=== PATIENT | female | born 1955 | race Caucasian/White ===

== ENCOUNTER 2017-07-21 00:46 | Inpatient (IN) | payer BC ==
[~2017-07-21] VITALS: Ht 149.9 cm; Wt 77.1 kg
[2017-07-21] VITALS (18 sets, daily range): BP systolic 111–167; BP diastolic 70–89; PULSE 69–95; RESP 16–18; TEMP 97–98.5; O2SAT 96–100
[2017-07-21] MEDS ORDERED: GABA800T PO (01:04)
[2017-07-21] MEDS ORDERED: TRAZ100T6 PO (01:04)
[2017-07-21] MEDS ORDERED: REME15TA PO (01:04)
[2017-07-21] MEDS ORDERED: IBUP800T23 PO (01:04)
[2017-07-21] MEDS ORDERED: PROP10TA6 PO (01:04)
[2017-07-21] MEDS ORDERED: NITROGLYCERIN 0.4 MG SL 25 TABS/BTL SL ONE (01:30)
[2017-07-21] MEDS ORDERED: SODIUM CHLORIDE 0.9% FLUSH 10 ML FLUSH IVF PRN (01:30)
[2017-07-21] MEDS ORDERED: ASPIRIN 81 MG CHEW TAB PO ONE (01:30)
[2017-07-21 02:00] LABS: AUTOMATED NEUTROPHIL # 3.8 TH/MM3 (1.8-7.7); BASOPHIL # 0.1 TH/MM3 (0-0.2); BASOPHIL % 0.9 % (0.0-2.0); EOSINOPHIL # 0.3 TH/MM3 (0-0.4); EOSINOPHIL % 3.6 % (0.0-4.0); HEMATOCRIT 34.8 % (35.0-46.0); HEMO FLAGS DIFF FINAL; LYMPHOCYTE # 3.6 TH/MM3 (1.0-4.8); MEAN CELL VOLUME 88.9 FL (80.0-100.0); MEAN CORPUSCULAR HEMOGLOBIN 29.7 PG (27.0-34.0); MEAN CORPUSCULAR HGB CONC 33.4 % (32.0-36.0); MONO % 7.1 % (0.0-8.0); NEUT % 45.4 % (16.0-70.0); PLATELET COUNT 304 TH/MM3 (150-450); RED BLOOD COUNT 3.91 MIL/MM3 (4.00-5.30); RED CELL DISTRIBUTION WIDTH 13.4 % (11.6-17.2); WHITE BLOOD COUNT 8.4 TH/MM3 (4.0-11.0)
[2017-07-21 02:05] LABS: APTT (PATIENT) 21.2 SEC (24.3-30.1); INTERNATIONAL NORMALIZED RATIO 0.8 RATIO; PROTHROMBIN TIME - PATIENT 9.3 SEC (9.8-11.6)
--- NOTE | 2017-07-21 02:06 | RADRPT ---
EXAM DATE/TIME: 07/21/2017 01:39 [facility] COMPARISON: No previous studies available for comparison. INDICATIONS : Chest pain radiating into back MEDICAL HISTORY : Fibromyalgia SURGICAL HISTORY : section. Hysterectomy. Appendectomy. Breast Reduction ENCOUNTER: Initial ACUITY: 1 day PAIN SCORE: 7/10 LOCATION: Bilateral chest FINDINGS: A single view of the chest demonstrates the lungs to be symmetrically aerated without evidence of mas s, infiltrate or effusion. The cardiomediastinal contours are unremarkable. Osseous structures are intact. CONCLUSION: No evidence of acute cardiopulmonary disease. Tigre Beauchamp MD on July 21, 2017 at 2:04 Board Certified Radiologist. This report was verified electronically.
[2017-07-21] MEDS ORDERED: ACETAMINOPHEN 500 MG CPLT PO ONE (02:15)
[2017-07-21 02:16] LABS: ALT (GPT) 35 U/L (10-53); ANION GAP 7 MEQ/L (5-15); AST (GOT) 26 U/L (15-37); BICARBONATE 23.4 MEQ/L (21.0-32.0); BLOOD UREA NITROGEN 15 MG/DL (7-18); CHLORIDE 112 MEQ/L (98-107); GLOMERULAR FILTRATION RATE 60 ML/MIN (>89); MAGNESIUM 2.3 MG/DL (1.5-2.5); POTASSIUM 3.6 MEQ/L (3.5-5.1); SODIUM (NA) 142 MEQ/L (136-145)
[2017-07-21 02:20] LABS: ALKALINE PHOSPHATASE 103 U/L (45-117); TOTAL BILIRUBIN ADULT 0.2 MG/DL (0.2-1.0)
[2017-07-21] MEDS ORDERED: SODIUM CHLOR 0.45% 1000 ML INJ 1,000 ML IV SCH (03:42)
[2017-07-21] MEDS ORDERED: MAGNESIUM HYDROXIDE SUSP 30 ML CUP PO PRN (03:45)
[2017-07-21] MEDS ORDERED: ONDANSETRON HCL 4 MG/2 ML VIAL IVP PRN (03:45)
[2017-07-21] MEDS ORDERED: BISACODYL 10 MG SUPP RECTAL PRN (03:45)
[2017-07-21] MEDS ORDERED: SODIUM CHLORIDE 0.9% FLUSH 10 ML FLUSH IV FLUSH PRN (03:45)
[2017-07-21] MEDS ORDERED: LACTULOSE SYRUP 20 GM/30 ML CUP PO PRN (03:45)
[2017-07-21] MEDS ORDERED: SENNOSIDES 8.6 MG TAB PO PRN (03:45)
[2017-07-21] MEDS ORDERED: MORPHINE SULFATE 4 MG/ML INJ IV PUSH ONE (03:45)
[2017-07-21] MEDS ORDERED: NALOXONE HCL 0.4 MG/ML AMP IV PUSH PRN (03:45)
--- NOTE | 2017-07-21 03:53 | PD ---
HPI Chief Complaint: Chest Pain Time Seen by Provider: 01:24 Travel History International Travel<30 days: No Contact w/Intl Traveler<30days: No Traveled to known affect area: No History of Present Illness HPI Is a 62 year-old woman presents to the emergency department complaining of chest pain and sciatica pain. She reports that she over the past 4 days develop chest pain is worse when she walks up and down hills but is also been there since she went to bed last night. Skin constant since 4 PM. She also states she's been having worsening sciatic pain. She is a history of sciatica and fibromyalgia. She states she was seen for chest pain several years ago and had a stress test, 10+ years ago, that was normal. No history of heart disease. No other complaints. History Past Medical History Narrative Medical Sciatica Fibromyalgia Social History Alcohol Use: No Tobacco Use: No Allergies-Medications (Allergen,Severity, Reaction): Coded Allergies: No Known Allergies (Verified Allergy, Unknown, 07/21/17) Reported Meds & Prescriptions Reported Meds & Active Scripts Active Reported Ibuprofen 800 Mg Tab 800 Mg PO Q6HR PRN Propranolol (Propranolol HCl) Unknown Strength Tab Unknown Dose PO Q12HR Trazodone (Trazodone HCl) 100 Mg Tablet 100 Mg PO HS Remeron (Mirtazapine) 15 Mg Tab 15 Mg PO HS Gabapentin 800 Mg Tab 800 Mg PO QID Review of Systems Except as stated in HPI: all other systems reviewed are Neg Physical Exam Narrative GENERAL: 62 year-old woman, no acute distress. SKIN: Focused skin assessment warm/dry. HEAD: Atraumatic. Normocephalic. EYES: Pupils equal and round. No scleral icterus. No injection or drainage. ENT: No nasal bleeding or discharge. Mucous membranes pink and moist. NECK: Trachea midline. No JVD. CARDIOVASCULAR: Regular rate and rhythm. No murmur appreciated. RESPIRATORY: No accessory muscle use. Clear to auscultation. Breath sounds equal bilaterally. GASTROINTESTINAL: Abdomen soft, non-tender, nondistended. Hepatic and splenic margins not palpable. MUSCULOSKELETAL: No obvious deformities. No clubbing. No cyanosis. No edema. NEUROLOGICAL: Awake and alert. No obvious cranial nerve deficits. Motor grossly within normal limits. Normal speech. PSYCHIATRIC: Appropriate mood and affect; insight and judgment normal. Data Data Last Documented VS Vital Signs Date Time Temp Pulse Resp B/P (MAP) Pulse Ox O2 Delivery O2 Flow Rate FiO2 07/21/17 01:30 100 Room Air 07/21/17 01:30 80 16 07/21/17 00:57 97.9 Orders Orders Electrocardiogram (07/21/17 01:28) Complete Blood Count With Diff (07/21/17 01:28) Comprehensive Metabolic Panel (07/21/17 01:28) D-Dimer (07/21/17:28) Magnesium (Mg) (07/21/17:28) Prothrombin Time / Inr (Pt) (07/21/17:28) Act Partial Throm Time (Ptt) (07/21/17:28) Troponin I (07/21/17:28) Lipase (07/21/17:28) Chest, Single Ap (07/21/17:28) Ecg Monitoring (07/21/17:28) Bilateral Bp Monitoring (07/21/17:28) Iv Access Insert/Monitor (07/21/17:28) Oximetry (07/21/17:28) Oxygen Administration (07/21/17 01:28) Aspirin Chew (Aspirin Chew) (07/21/17 01:30) Sodium Chloride 0.9% Flush (Ns Flush) (07/21/17 01:30) Nitroglycerin Sl (Nitrostat Sl) (07/21/17 01:30) Acetaminophen (Tylenol) (07/21/17 02:15) Morphine Inj (Morphine Inj) (07/21/17 03:45) Troponin I (07/21/17 03:34) Electrocardiogram (07/21/17 ) Place In Observation (07/21/17 ) Vital Signs (Adult) Q4H (07/21/17 03:42) Activity Oob With Assistance (07/21/17 03:42) Physical Security Manager / Telemetry .CONTINUOUS (07/21/17 03:42) Intake + Output JAYSON.QSHIFT (07/21/17 03:42) Diet Npo (07/21/17 Breakfast) Sodium Chlor 0.45% 1000 Ml Inj (1/2 Ns 1 (07/21/17 03:42) Sodium Chloride 0.9% Flush (Ns Flush) (07/21/17 03:45) Sodium Chloride 0.9% Flush (Ns Flush) (07/21/17 09:00) Ondansetron Inj (Zofran Inj) (07/21/17 03:45) Comprehensive Metabolic Panel (07/22/17 06:00) Complete Blood Count With Diff (07/22/17 06:00) Troponin I (07/21/17 03:42) Troponin I (07/21/17 09:42) Electrocardiogram (07/21/17 03:42) Electrocardiogram (07/21/17 09:42) Scd Bilateral/Knee High JAYSON.BID (07/21/17 03:42) Naloxone Inj (Narcan Inj) (07/21/17 03:45) Magnesium Hydroxide Liq (Milk Of Magnesi (07/21/17 03:45) Sennosides (Senokot) (07/21/17 03:45) Bisacodyl Supp (Dulcolax Supp) (07/21/17 03:45) Lactulose Liq (Lactulose Liq) (07/21/17 03:45) Gabapentin (Neurontin) (07/21/17 09:00) Trazodone (Desyrel) (07/21/17 21:00) Labs Laboratory Tests Test 07/21/17 01:31 White Blood Count 8.4 TH/MM3 Red Blood Count 3.91 MIL/MM3 Hemoglobin 11.6 GM/DL Hematocrit 34.8 % Mean Corpuscular Volume 88.9 FL Mean Corpuscular Hemoglobin 29.7 PG Mean Corpuscular Hemoglobin Concent 33.4 % Red Cell Distribution Width 13.4 % Platelet Count 304 TH/MM3 Mean Platelet Volume 7.6 FL Neutrophils (%) (Auto) 45.4 % Lymphocytes (%) (Auto) 43.0 % Monocytes (%) (Auto) 7.1 % Eosinophils (%) (Auto) 3.6 % Basophils (%) (Auto) 0.9 % Neutrophils # (Auto) 3.8 TH/MM3 Lymphocytes # (Auto) 3.6 TH/MM3 Monocytes # (Auto) 0.6 TH/MM3 Eosinophils # (Auto) 0.3 TH/MM3 Basophils # (Auto) 0.1 TH/MM3 CBC Comment DIFF FINAL Differential Comment Prothrombin Time 9.3 SEC Prothromb Time International Ratio 0.8 RATIO Activated Partial Thromboplast Time 21.2 SEC D-Dimer Quantitative (PE/DVT) 0.35 MG/L FEU Blood Urea Nitrogen 15 MG/DL Creatinine 0.94 MG/DL Random Glucose 123 MG/DL Total Protein 6.9 GM/DL Albumin 3.4 GM/DL Calcium Level 8.2 MG/DL Magnesium Level 2.3 MG/DL Alkaline Phosphatase 103 U/L Aspartate Amino Transf (AST/SGOT) 26 U/L Alanine Aminotransferase (ALT/SGPT) 35 U/L Total Bilirubin 0.2 MG/DL Sodium Level 142 MEQ/L Potassium Level 3.6 MEQ/L Chloride Level 112 MEQ/L Carbon Dioxide Level 23.4 MEQ/L Anion Gap 7 MEQ/L Estimat Glomerular Filtration Rate 60 ML/MIN Troponin I 0.09 NG/ML Lipase 174 U/L MDM Medical Decision Making Medical Screen Exam Complete: Yes Emergency Medical Condition: Yes Interpretation(s) My review of EKG: Normal sinus rhythm at a rate of 82, normal axis, normal intervals, no definite evidence of acute ischemia. LABS: CBC is unremarkable. CMP is unremarkable. Troponin 0.09. Lipase 174 Coags unremarkable D-dimer less than 0.5 Chest x-ray: Negative Differential Diagnosis Chest pain, anxiety, sciatica, ACS, PE, other Narrative Course Medical decision-making 60-year-old presents with chest pain. She describes exertional chest pain but seems very fixated on pain medications and her sciatica. Overall my impression is unlikely to be cardiac. D-dimer is less than 0.5 suggesting against PE or dissection. She looks generally well. Troponin is equivocal at 0.09. We'll plan on admission for serial cardiac enzymes and repeat assessment. Diagnosis Primary Impression: Chest pain Admitting Information Admitting Physician Requests: Oseas Segundo MD Jul 21, 2017 03:53
--- NOTE | 2017-07-21 04:01 | HHI.HP ---
[facility] Service [facility] Primary Care Physician Admission Diagnosis Diagnoses: Chief Complaint: chest and back pain Travel History International Travel<30 Days: No Contact w/Intl Traveler <30 Da: No Traveled to Known Affected Are: No History of Present Illness Written by REBECCA Dixon acting as scribe for Dr. Bey] on 07/21/17 at 03:49. 62 y/o female with a history of fibromyalgia presented to the ED with complaints of back and chest pain. She states she woke up Saturday with severe intermittent back pain with no radiation, and yesterday she had associated constant chest pressure on exertion when climbing stairs with associated shortness of breath. She states the only medication change is she was recently placed on Xigduo for possible appetite suppressant. No history of sleep apnea, never been tested but she does snore. Review of Systems Except as stated in HPI: all other systems reviewed are Neg Past Family Social History Past Medical History Fibromyalgia Past Surgical History C section Hysterectomy Breast reduction Reported Medications Reported Meds & Active Scripts Active Reported Ibuprofen 800 Mg Tab 800 Mg PO Q6HR PRN Propranolol (Propranolol HCl) Unknown Strength Tab Unknown Dose PO Q12HR Trazodone (Trazodone HCl) 100 Mg Tablet 100 Mg PO HS Remeron (Mirtazapine) 15 Mg Tab 15 Mg PO HS Gabapentin 800 Mg Tab 800 Mg PO QID Allergies: Coded Allergies: No Known Allergies (Verified Allergy, Unknown, 07/21/17) Active Ordered Medications Current Medications Medications (Trade) Dose Ordered Sig/Juan Route Start Time Stop Time Status Last Admin (NS Flush) 2 ml UNSCH PRN IVF 07/21/17 01:30 Sodium Chloride 1,000 ml @ 75 mls/hr [id number] IV 07/21/17 03:42 (NS Flush) 2 ml UNSCH PRN IV FLUSH 07/21/17 03:45 (NS Flush) 2 ml BID IV FLUSH 07/21/17 09:00 (Zofran Inj) 4 mg Q6H PRN IVP 07/21/17 03:45 (Narcan Inj) 0.4 mg UNSCH PRN IV PUSH 07/21/17 03:45 (Milk Of Magnesia Liq) 30 ml Q12H PRN PO 07/21/17 03:45 (Senokot) 17.2 mg Q12H PRN PO 07/21/17 03:45 (Dulcolax Supp) 10 mg DAILY PRN RECTAL 07/21/17 03:45 (Lactulose Liq) 30 ml DAILY PRN PO 07/21/17 03:45 (Neurontin) 800 mg TID PO 07/21/17 09:00 (Desyrel) 100 mg HS PO 07/21/17 21:00 Family History Mom: CVA Dad: COPD Social History Patient denies any tobacco, alcohol or illicit drug use. Physical Exam Vital Signs Vital Signs Date Time Temp Pulse Resp B/P (MAP) Pulse Ox O2 Delivery O2 Flow Rate FiO2 07/21/17 01:30 100 Room Air 07/21/17 01:30 100 Room Air 07/21/17 01:30 80 16 167/82 (110) 07/21/17 00:57 97.9 84 16 158/89 (112) 100 Physical Exam GENERAL: This is a well-nourished, well-developed patient, in no apparent distress. SKIN: No rashes, ecchymoses or lesions. Cool and dry. HEAD: Atraumatic. Normocephalic. EYES: Pupils equal round and reactive. ENT: Nose without bleeding, purulent drainage or septal hematoma Airway patent. NECK: Trachea midline. No JVD or lymphadenopathy. Supple, nontender, no meningeal signs. CARDIOVASCULAR: Regular rate and rhythm without murmurs, gallops, or rubs. RESPIRATORY: Clear to auscultation. Breath sounds equal bilaterally. No wheezes , rales, or rhonchi. GASTROINTESTINAL: Abdomen soft, non-tender, nondistended. No hepato-splenomegaly , or palpable masses. No guarding. MUSCULOSKELETAL: Bilateral lower extremity edema. No calf tenderness. NEUROLOGICAL: Awake and alert. Motor and sensory grossly within normal limits.Normal speech. Laboratory Laboratory Tests Test 07/21/17 01:31 White Blood Count 8.4 Red Blood Count 3.91 Hemoglobin 11.6 Hematocrit 34.8 Mean Corpuscular Volume 88.9 Mean Corpuscular Hemoglobin 29.7 Mean Corpuscular Hemoglobin Concent 33.4 Red Cell Distribution Width 13.4 Platelet Count 304 Mean Platelet Volume 7.6 Neutrophils (%) (Auto) 45.4 Lymphocytes (%) (Auto) 43.0 Monocytes (%) (Auto) 7.1 Eosinophils (%) (Auto) 3.6 Basophils (%) (Auto) 0.9 Neutrophils # (Auto) 3.8 Lymphocytes # (Auto) 3.6 Monocytes # (Auto) 0.6 Eosinophils # (Auto) 0.3 Basophils # (Auto) 0.1 CBC Comment DIFF FINAL Differential Comment Prothrombin Time 9.3 Prothromb Time International Ratio 0.8 Activated Partial Thromboplast Time 21.2 D-Dimer Quantitative (PE/DVT) 0.35 Blood Urea Nitrogen 15 Creatinine 0.94 Random Glucose 123 Total Protein 6.9 Albumin 3.4 Calcium Level 8.2 Magnesium Level 2.3 Alkaline Phosphatase 103 Aspartate Amino Transf (AST/SGOT) 26 Alanine Aminotransferase (ALT/SGPT) 35 Total Bilirubin 0.2 Sodium Level 142 Potassium Level 3.6 Chloride Level 112 Carbon Dioxide Level 23.4 Anion Gap 7 Estimat Glomerular Filtration Rate 60 Troponin I 0.09 Lipase 174 Result Diagram: 07/21/1713007/21/17130 Caprini VTE Risk Assessment Caprini VTE Risk Assessment: Mod/High Risk (score >= 2) Caprini Risk Assessment Model Point Value = 1 Point Value = 2 Point Value = 3 Point Value = 5 Age 41-60 Minor surgery BMI > 25 kg/m2 Swollen legs Varicose veins or History of unexplained or recurrent spontaneous Oral contraceptives or hormone replacement Sepsis (< 1 month) Serious lung disease, including pneumonia (< 1 month) Abnormal pulmonary function Acute myocardial infarction Congestive heart failure (< 1 month) History of inflammatory bowel disease Medical patient at bed rest Age 61-74 Arthroscopic surgery Major open surgery (> 45 min) Laparoscopic surgery (> 45 min) Malignancy Confined to bed (> 72 hours) Immobilizing plaster cast Central venous access Age >= 75 History of VTE Family history of VTE Factor V Leiden Prothrombin [id number] Lupus anticoagulant Anticardiolipin antibodies Elevated serum homocysteine Heparin-induced thrombocytopenia Other congenital or acquired thrombophilia Stroke (< 1 month) Elective arthroplasty Hip, pelvis, or leg fracture Acute spinal cord injury (< 1 month) Prophylaxis Regimen Total Risk Factor Score Risk Level Prophylaxis Regimen 0-1 Low Early ambulation 2 Moderate Order ONE of the following: *Sequential Compression Device (SCD) *Heparin 5000 units SQ BID 3-4 Higher Order ONE of the following medications: *Heparin 5000 units SQ TID *Enoxaparin/Lovenox 40 mg SQ daily (WT < 150 kg, CrCl > 30 mL/min) *Enoxaparin/Lovenox 30 mg SQ daily (WT < 150 kg, CrCl > 10-29 mL/min) *Enoxaparin/Lovenox 30 mg SQ BID (WT < 150 kg, CrCl > 30 mL/min) AND/OR *Sequential Compression Device (SCD) 5 or more Highest Order ONE of the following medications: *Heparin 5000 units SQ TID (Preferred with Epidurals) *Enoxaparin/Lovenox 40 mg SQ daily (WT < 150 kg, CrCl > 30 mL/min) *Enoxaparin/Lovenox 30 mg SQ daily (WT < 150 kg, CrCl > 10-29 mL/min) *Enoxaparin/Lovenox 30 mg SQ BID (WT < 150 kg, CrCl > 30 mL/min) AND *Sequential Compression Device (SCD) Assessment and Plan Problem List: (1) Chest pain ICD Code: R07.9 - Chest pain, unspecified Status: Acute Assessment and Plan 62 y/o female with a history of fibromyalgia presented to the ED with complaints of back and chest pain. Chest pain, atypical, rule out ACS troponin .07 -Serial troponin and EKGs Lower extremity edema, r/o CHF -BNP ordered -2d echo Fibromyalgia, chronic -Resume home medications -Patient will need a sleep study outpatient to rule out sleep apnea DVT prophylaxis: SCDs Discussed Condition With Patient, ED physician This note was transcribed by scribe [Lizzie Hagan]. I, Dr. Toy Ross personally performed the history, physical exam, and medical decision making; and confirmed the accuracy of the information in the transcribed note. Authenticated by Dr. Toy Ross on 07/21/17 at 04:20. Lizzie Hagan Jul 21, 2017 04:01 Toy Ross MD Jul 21, 2017 04:22
[2017-07-21] MEDS ORDERED: HEPARIN-D5W 25,000 U/250 ML 250 ML IV PRN (05:30)
[2017-07-21] MEDS ORDERED: HEPARIN SODIUM - IV 10,000 UNITS/10 ML VIAL IV PUSH ONE (05:30)
[2017-07-21] MEDS: NITROGLYCERIN 2% OINT 1 GM PACKET TOPICAL SCH ×3 (08:00→21:14)
[2017-07-21] MEDS: GABAPENTIN 400 MG CAP PO SCH ×3 (08:39→17:52)
[2017-07-21] MEDS: SODIUM CHLORIDE 0.9% FLUSH 10 ML FLUSH IV FLUSH SCH ×2 (08:40→21:09)
[2017-07-21] MEDS: MORPHINE SULFATE 2 MG/ML INJ IV PUSH PRN ×4 (08:41→23:35)
[2017-07-21 08:56] LABS: APTT (PATIENT) 35.5 SEC (24.3-30.1)
[2017-07-21 09:18] LABS: HDL CHOLESTEROL 51.7 MG/DL (40.0-60.0); LDL CHOLESTEROL 129 MG/DL (0-99)
[2017-07-21] MEDS ORDERED: GABAPENTIN 400 MG CAP PO SCH (10:00)
--- NOTE | 2017-07-21 10:02 | HHI.PR ---
Subjective Remarks Follow-up for pain. The patient is very anxious and not a good historian. Her chief complaint is pain in her chest, back, and right leg. She does have chronic pain from fibromyalgia and sciatica for which she takes gabapentin 800 mg 3-4 times daily. She states that she woke up Saturday with back pain that is still present and worse with movement. She states early this week she was walking across the street to her neighbors house and developed shortness of breath. She states she's been having constant chest pain for 4 days, but does not elaborate this well. She states the pain increases when she goes up the stairs to her apartment. She states the pain never decreases even with rest. The pain in her chest she describes as heavy like an elephant is sitting on it. The pain is worse with movement and whenever her chest is touched. She states the pain is worse whenever she breathes out. She denies any relieving factors, but she is asking for more IV morphine. She's been having some pain in her right leg, denies any recent travel. Has been using topical Xylocaine patches on her right leg. She states she is healthy and in good shape and denies any heart disease. Objective Vitals Vital Signs Date Time Temp Pulse Resp B/P (MAP) Pulse Ox O2 Delivery O2 Flow Rate FiO2 07/21/17 09:28 19 07/21/17 07:38 98.5 77 17 111/70 (84) 98 07/21/17 07:32 77 07/21/17 05:14 97.9 78 17 120/71 (87) 96 07/21/17 04:26 07/21/17 04:25 69 16 153/70 (97) 97 07/21/17 01:30 100 Room Air 07/21/17 01:30 100 Room Air 07/21/17 01:30 80 16 167/82 (110) 07/21/17 00:57 97.9 84 16 158/89 (112) 100 Result Diagram: 07/21/1713007/21/17130 Imaging Last Impressions Chest X-Ray 07/21/17127 Signed Impressions: Service Date/Time: Friday, July 21, 2017 01:39 - CONCLUSION: No evidence of acute cardiopulmonary disease. Tigre Beauchamp MD Objective Remarks GENERAL: Well-developed well-nourished. In no acute distress. SKIN: Warm and dry. No lesions noted. HEENT: Normocephalic. Pupils equal and round. Mucous membranes pink and moist. CARDIOVASCULAR: Regular rate and rhythm. No murmur appreciated. Anterior chest wall pain reproducible with palpation. RESPIRATORY: No accessory muscle use. Clear to auscultation. Breath sounds equal bilaterally. GASTROINTESTINAL: Abdomen soft, non-tender, nondistended. Bowel sounds x4. MUSCULOSKELETAL: No obvious deformities. No clubbing or cyanosis. No edema. No calf swelling, tenderness bilaterally. Negative Homans sign bilaterally. NEUROLOGICAL: Awake and alert. No focal neurological deficits. Moves upper and lower extremities spontaneously. Normal speech. PSYCHIATRIC: Extremely anxious mood and affect; insight and judgment normal. A/P Problem List: (1) Chest pain ICD Code: R07.9 - Chest pain, unspecified Status: Acute Assessment and Plan 62 y/o female with a history of fibromyalgia presented to the ED with complaints of back and chest pain. Atypical chest pain/NSTEMI: Patient's symptoms are extremely atypical, however troponins are 0.09, 0.17. Reviewed: EKG with NSR, no ischemic changes. D-dimer within normal limits. Chest x-ray clear. BNP 44. -Continue trending serial troponins and EKGs -Heparin drip started -Cardiology consulted, appreciate input -Start Nitropaste. Morphine as needed for now. -Echocardiogram ordered. -Hemoglobin A1c pending Hyperlipidemia: Lipid profile checked with high triglycerides and LDL 129. LFTs within normal limits. -Start statin -Check CPK Right lower extremity pain: No swelling, tenderness, and Homans signs negative. D-dimer is within normal limits. -Probably secondary to chronic sciatic pain, continue home therapies Fibromyalgia: chronic -Resume home gabapentin -Recommend sleep study outpatient to rule out sleep apnea Anxiety/depression/insomnia: Chronic. -Continue home trazodone and Remeron DVT prophylaxis: SCDs Discharge Planning Follow-up cardiology recommendations. Enrique Lu Jul 21, 2017 10:02
[2017-07-21 10:03] LABS: HEMOGLOBIN A1a 1.3 %; HEMOGLOBIN LA1C 2.3 %
[2017-07-21 11:24] LABS: APTT (PATIENT) 29.5 SEC (24.3-30.1)
[2017-07-21] MEDS ORDERED: HEPARIN SODIUM - IV 10,000 UNITS/10 ML VIAL IV PUSH PRN ×2 (11:30)
--- NOTE | 2017-07-21 12:47 | MB ---
cc: KEO WHITE HANSCY M.D. DATE OF CONSULTATION: 07/21/2017 REASON FOR CONSULTATION Chest and back pain. HISTORY OF PRESENT ILLNESS Mrs. Velazquez is a 62-year-old female with history of fibromyalgia, back pain, recently seen by her primary care physician Dr. Keo White due to right leg pain. The doctor thought possibly this is fibromyalgia versus sciatica. She was sent home, she is on ibuprofen and Neurontin. For the past couple of days refers back and chest pain. She refers some chest pressure. She decided to come to the emergency room. Troponin was 0.17. I was consulted for further evaluation and management. The chart was reviewed. The patient was evaluated. ALLERGIES None. SOCIAL HISTORY Negative for smoking and drinking. FAMILY HISTORY Noncontributory to her current medical condition. MEDICATIONS 1. She is on ibuprofen 800 mg q.6 hours. 2. Propranolol. 3. Trazodone 100 mg at bedtime. 4. Remeron 15 mg at bedtime. 5. Neurontin 800 mg four times a day. REVIEW OF SYSTEMS Currently the patient refers no chest pain, no chest discomfort. Some back pain. No vomiting. No fever. PHYSICAL EXAMINATION GENERAL: Alert, fully oriented. VITAL SIGNS: Her blood pressure is 111/70, pulse 77, respiratory rate 17. LUNGS: Ventilated. CARDIOVASCULAR: S1-S2, regular. No gallop or murmur. ABDOMEN: Soft. No mass. No bruit. EXTREMITIES: No edema. ELECTROCARDIOGRAM Sinus rhythm. No active ST and T-wave changes. LABORATORY DATA INR 0.8, D-dimer 0.35, potassium 3.6, creatinine 0.94, troponin currently 0.17. Triglycerides 288, total cholesterol 238, LDL 129, HDL 51.7. Hemoglobin is 11.6, white blood cell 8.4. ASSESSMENT AND RECOMMENDATIONS Mrs. Velazquez's pain is atypical. But she refers she feels some heaviness in her chest. She has no serious risk factor. The HDL is high despite the total cholesterol over 200. Apparently, she has a history of fibromyalgia and back pain and was on painkiller in the past. Because of her age and the nature of the chest pain and also the increase of troponin, I am going to order a nuclear stress study. Based on the results further decision about her management will be taken. I will follow her during hospitalization. MD MARIAJOSE Diaz /10:49 AM /12:33 PM
[2017-07-21] MEDS ORDERED: REGADENOSON INJ 0.4 MG/5 ML SYR ONE (13:47)
--- NOTE | 2017-07-21 15:50 | RADRPT ---
EXAM DATE/TIME: 07/21/2017 13:15 [facility] COMPARISON: CHEST SINGLE AP, July 21, 2017, 1:39. INDICATIONS : Chest pain radiating to the back and right leg. Angina. DOSE: 27.2 mCi Tc99m Myoview at stress. 8 mCi Tc99m Myoview at rest. 0.4 mg Lexiscan STRESS SYMPTOMS: Chest heaviness, back pain and dyspnea. EJECTION FRACTION: > 70% MEDICAL HISTORY : Fibromyalgia. SURGICAL HISTORY : Hysterectomy. Appendectomy. ENCOUNTER: Initial ACUITY: 3 days PAIN SCALE: 5/10 LOCATION: chest TECHNIQUE: The patient underwent pharmacologic stress with infusion of prescribed dose. Continuous ECG tracing was monitored during stress. Gated SPECT imaging was performed after stress and conventional SPECT i maging was performed at rest. The examination was performed on a SPECT/CT scanner, both attenuation and non-corrected datasets were reviewed. FINDINGS: DISTRIBUTION: The maximum perfused segment at stress is in the anterior wall. PERFUSION STUDY: There is a large perfusion defect involving the inferior septal and inferior borges on a stress images with redistribution in the inferior septal region on the rest images. There is a summed stress score of 17. GATED STUDY: There is intact wall motion and thickening without hypokinetic or dyskinetic segments. CONCLUSION: 1. Large perfusion defect involving the inferior septal and inferior borges with partial redistributio n in the inferior septal region. This is characteristic of ischemia. 2. Normal wall motion and calculated ejection fraction. RISK CATEGORY: Intermediate (1-3% Annual Mortality Rate) Ag Martell MD on July 21, 2017 at 15:42 Board Certified Radiologist. This report was verified electronically.
[2017-07-21] MEDS ORDERED: ACETAMINOPHEN 325 MG TAB PO PRN (16:00)
[2017-07-21] MEDS: LORazepam 0.5 MG TAB PO PRN (16:00)
[2017-07-21 17:56] LABS: APTT (PATIENT) 66.7 SEC (24.3-30.1)
--- NOTE | 2017-07-21 20:41 | EKG ---
Date Performed: 07/21/2017 Time Performed: 03:50:57 PTAGE: 62 years EKG: Sinus rhythm NORMAL ECG PREVIOUS TRACING : 07/21/2017 01.09 DOCTOR: Dede Simon Interpretating Date/Time 07/21/2017 20:38:43
--- NOTE | 2017-07-21 20:42 | EKG ---
Date Performed: 07/21/2017 Time Performed: 01:09:23 PTAGE: 62 years EKG: Sinus rhythm MINIMAL VOLTAGE CRITERIA FOR LVH, CONSIDER NORMAL VARIANT BORDERLINE ECG NO PREVIOUS TRACING DOCTOR: Dede Simon Interpretating Date/Time 07/21/2017 20:39:18
[2017-07-21] MEDS: MIRTAZAPINE 15 MG TAB PO SCH (21:09)
[2017-07-21] MEDS: ATORVASTATIN 10 MG TAB PO SCH (21:10)
[2017-07-21] MEDS: traZODone HCL 100 MG TAB PO SCH (21:10)
[2017-07-22] VITALS (25 sets, daily range): BP systolic 107–150; BP diastolic 55–83; PULSE 68–109; RESP 16–18; TEMP 97.8–98.9; O2SAT 96–100
[2017-07-22 00:06] LABS: APTT (PATIENT) 43.9 SEC (24.3-30.1)
[2017-07-22] MEDS: MORPHINE SULFATE 2 MG/ML INJ IV PUSH PRN ×3 (06:33→18:20)
[2017-07-22] MEDS: NITROGLYCERIN 2% OINT 1 GM PACKET TOPICAL SCH ×3 (06:36→20:40)
[2017-07-22 06:40] LABS: AUTOMATED NEUTROPHIL # 4.6 TH/MM3 (1.8-7.7); BASOPHIL # 0.1 TH/MM3 (0-0.2); EOSINOPHIL # 0.4 TH/MM3 (0-0.4); EOSINOPHIL % 3.9 % (0.0-4.0); HEMATOCRIT 36.2 % (35.0-46.0); HEMO FLAGS DIFF FINAL; LYMPH % 39.9 % (9.0-44.0); LYMPHOCYTE # 3.7 TH/MM3 (1.0-4.8); MEAN CELL VOLUME 88.3 FL (80.0-100.0); MEAN CORPUSCULAR HEMOGLOBIN 30.5 PG (27.0-34.0); MEAN CORPUSCULAR HGB CONC 34.5 % (32.0-36.0); MONO % 5.1 % (0.0-8.0); NEUT % 50.1 % (16.0-70.0); PLATELET COUNT 283 TH/MM3 (150-450); RED CELL DISTRIBUTION WIDTH 13.3 % (11.6-17.2); WHITE BLOOD COUNT 9.2 TH/MM3 (4.0-11.0)
[2017-07-22 06:49] LABS: APTT (PATIENT) 41.5 SEC (24.3-30.1)
[2017-07-22 06:57] LABS: ANION GAP 7 MEQ/L (5-15); AST (GOT) 33 U/L (15-37); BICARBONATE 24.1 MEQ/L (21.0-32.0); BLOOD UREA NITROGEN 14 MG/DL (7-18); CHLORIDE 108 MEQ/L (98-107); GLOMERULAR FILTRATION RATE 63 ML/MIN (>89); POTASSIUM 3.9 MEQ/L (3.5-5.1); SODIUM (NA) 139 MEQ/L (136-145)
[2017-07-22 07:00] LABS: ALKALINE PHOSPHATASE 86 U/L (45-117); ALT (GPT) 41 U/L (10-53); TOTAL BILIRUBIN ADULT 0.3 MG/DL (0.2-1.0)
[2017-07-22] MEDS: SODIUM CHLORIDE 0.9% FLUSH 10 ML FLUSH IV FLUSH SCH ×2 (08:15→20:40)
[2017-07-22] MEDS: GABAPENTIN 400 MG CAP PO SCH ×3 (08:15→18:19)
--- NOTE | 2017-07-22 08:56 | HHI.PR ---
Subjective Remarks Patient reports she is still having some chest pain radiating to her back. Nuclear stress test is positive. Plan for heart catheterization this morning. Objective Vitals Vital Signs Date Time Temp Pulse Resp B/P (MAP) Pulse Ox O2 Delivery O2 Flow Rate FiO2 07/22/17 07:01 80 07/22/17 05:00 68 07/22/17 04:00 98 Room Air 07/22/17 03:49 97.8 79 16 115/72 (86) 98 07/22/17 03:49 94 07/22/17 03:00 76 07/22/17 02:00 84 07/22/17 01:00 80 07/22/17 00:00 97.8 76 16 117/73 (88) 96 07/22/17 00:00 78 07/22/17 00:00 96 Room Air 07/21/17 23:00 85 07/21/17 22:00 88 07/21/17 21:09 89 07/21/17 21:09 Room Air 07/21/17 20:00 97.0 95 18 139/75 (96) 96 07/21/17 20:00 95 07/21/17 18:48 95 07/21/17 18:00 92 07/21/17 17:00 81 07/21/17 16:00 79 07/21/17 15:45 97.1 82 18 130/78 (95) 100 07/21/17 15:00 85 07/21/17 12:00 97.0 85 18 148/87 (107) 97 07/21/17 10:31 76 07/21/17 09:28 19 I/O 07/21/17 07/21/17 07/21/17 07/22/17 07/22/17 07/22/17 07:00 15:00 23:00 07:00 15:00 23:00 Intake Total 285 ml 294 ml Output Total 900 ml Balance -615 ml 294 ml Intake Oral 240 ml 240 ml IV Total 45 ml 54 ml Output Urine Total 900 ml # Voids 3 1 Result Diagram: 07/22/1760507/22/17605 Objective Remarks GENERAL: This is a well-nourished, well-developed patient, in no apparent distress. CARDIOVASCULAR: Normal rate and regular rhythm without murmurs, gallops, or rubs. RESPIRATORY: Good respiratory efforts. Breath sounds equal and clear to auscultation bilaterally. GASTROINTESTINAL: Abdomen soft, non-tender, non-distended. Normal active bowel sounds MUSCULOSKELETAL: Extremities without cyanosis, or edema. NEURO: Alert & Oriented x4 to person, place, time, situation. Moves all ext x4 PSYCH: Appropriate mood and affect. A/P Problem List: (1) Chest pain ICD Code: R07.9 - Chest pain, unspecified Status: Acute (2) NSTEMI (non-ST elevated myocardial infarction) ICD Code: I21.4 - Non-ST elevation (NSTEMI) myocardial infarction Assessment and Plan 62 y/o female with a history of fibromyalgia presented to the ED with complaints of back and chest pain. Atypical chest pain/NSTEMI: Patient's symptoms are atypical, however troponins are 0.09, 0.17. Positive nuclear stress test -On Heparin drip. Plan for heart catheterization today -Cardiology following -Nitropaste. Morphine as needed for now. -Echocardiogram ordered. -Hemoglobin A1c 6.1 Hyperlipidemia: Lipid profile checked with high triglycerides and LDL 129. LFTs within normal limits. -On statin Right lower extremity pain: No swelling, tenderness, and Homans signs negative. D-dimer is within normal limits. -Probably secondary to chronic sciatic pain, continue home therapies Fibromyalgia: chronic -Continue home gabapentin -Recommend sleep study outpatient to rule out sleep apnea Anxiety/depression/insomnia: Chronic. -Continue home trazodone and Remeron DVT prophylaxis: On Heparin Harsh Guevara MD Jul 22, 2017 08:56
[2017-07-22] MEDS ORDERED: MIDAZOLAM HCL 2 MG/2 ML VIAL ONE (10:30)
[2017-07-22] MEDS ORDERED: HEPARIN-NS/PF INJ 500 ML ONE (10:31)
[2017-07-22] MEDS ORDERED: NITROGLYCERIN INJ 5 ML ONE (10:31)
[2017-07-22] MEDS ORDERED: HEPARIN SODIUM - IV 10,000 UNITS/10 ML VIAL ONE (10:31)
[2017-07-22] MEDS ORDERED: VERAPAMIL HCL 5 MG/2 ML VIAL ONE (10:31)
[2017-07-22] MEDS ORDERED: NITROGLYCERIN 400 MCG/SPRAY 4.9 GM BOTTLE SL ONE (11:12)
[2017-07-22] MEDS ORDERED: PRASUGREL 10 MG TAB ONE (11:54)
[2017-07-22] MEDS ORDERED: SODIUM CHLOR 0.9% 1000 ML INJ 1,000 ML IV SCH (12:05)
[2017-07-22] MEDS ORDERED: ACETAMINOPHEN 325 MG TAB PO PRN (12:15)
[2017-07-22] MEDS ORDERED: MISC INFORMATION XX ONE (12:15)
--- NOTE | 2017-07-22 12:41 | MB ---
cc: CASEY NAZARIO DATE OF CONSULTATION: 07/22/2017 DATE OF : 1955 REASON FOR CONSULTATION Rai-BV-lxcvwwrgu NV, positive stress test. HISTORY OF PRESENT ILLNESS 62-year-old female with past medical history significant for fibromyalgia and hypertension that presented to the hospital with complaint of atypical chest pain. She was found to have elevated troponin. She was seen by cardiology, Dr. Simon, who order a nuclear stress test which was positive for reversible ischemia, thus interventional cardiology has been consulted for further management for possible left heart cath and intervention. Currently the patient complains of chest pain into the left arm. Denies nausea, vomiting, diarrhea, fevers or chills. REVIEW OF SYSTEMS Negative except for what is mentioned in the HPI. PAST MEDICAL HISTORY 1. Fibromyalgia. 2. Hypertension. 3. Hyperlipidemia. SOCIAL HISTORY No alcohol. No smoking. No illicit drug use. FAMILY HISTORY Noncontributory. MEDICATIONS Home medications were reviewed. ALLERGIES No known drug allergies. PHYSICAL EXAMINATION VITAL SIGNS: Temperature 97, respiratory rate 20, blood pressure 122/72. O2 sats 100% on room air. GENERAL: Awake, alert, oriented x3, in no acute distress. NECK: No JVD or carotid bruits. HEART: Regular rate and rhythm. No murmurs, rubs or gallops. LUNGS: Clear to auscultation bilaterally. ABDOMEN: Soft, nontender, nondistended. Positive bowel sounds. EXTREMITIES: No cyanosis or edema. Pulses throughout. DATA MPI- Reversible ischemia in the inferior wall. Troponin is minimally elevated. Hemoglobin and creatinine are stable. INR 0.8, D-dimer 0.35, potassium 3.6, creatinine 0.94, troponin currently 0.17. Triglycerides 288, total cholesterol 238, LDL 129, HDL 51.7. Hemoglobin is 11.6 , white blood cell 8.4. ASSESSMENT AND PLAN 62-year-old female who presented with a zes-IZ-ltzazwidd NV, atypical chest pain and positive stress test. She remains afebrile and hemodynamically stable. She complains of some chest discomfort which seems to be atypical. Given the patient's results of stress test, troponin and ongoing complaint of chest pain, I think it is reasonable to proceed with left heart cath with possible intervention. The risks and benefits of left heart cath/PCI including but not limited to neurovascular trauma, bleeding, infection, acute kidney injury, stroke, emergent bypass surgery and have been explained to the patient. The patient understands the risks and she is willing to proceed. Keep n.p.o. for a left heart cath today. MD EUGENIO Braswell/MATILDE /12:03 PM /12:32 PM TWYLA
[2017-07-22] MEDS ORDERED: PILL SPLITTER OTHER PRN (12:45)
--- NOTE | 2017-07-22 12:46 | MA ---
cc: MICHAELCASEY Ingram DATE OF 1955 DATE OF CONSULTATION July 22, 2017. PREPROCEDURE DIAGNOSES 1. Twk-WJ-udwbxhjos PR. 2. Positive stress test. 3. Chest pain. 4. Fibromyalgia POSTPROCEDURE DIAGNOSIS 1. Bnm-GT-dmfdbbped PR 2. Successful PCI to right coronary artery. 3. Chest pain 4. Positive stress test 5. Fibromyalgia PROCEDURE PERFORMED 1. Left heart catheterization. 2. Selective right and left coronary angiography. 3. Left ventriculogram. 4. Successful PCI/JERED to mid-right coronary artery. INDICATION [id number]-omiuhutnd PR. APPROACH Right transradial. PROCEDURE DESCRIPTION Consent signed. The patient was brought into the cardiac slab miller operator in a fasting state. The right wrist was prepped and draped in sterile fashion. Using 1% lidocaine for local anesthesia and a micropuncture kit, a 6-Portuguese sheath was inserted into the right radial artery, antispasmodic cocktail given, then selective right and left coronary angiography was performed with a JR-4 and aJ L -3.5 diagnostic catheter. Angiography was taken in multiple views. Then the diagnostic catheter was introduced into the ventricle over a wire. This was followed by pressure recordings and ventriculogram on pullback. We identified a 99% blockage with MARISOL 2 flow in the mid-RCA amenable to PCI, thus we proceeded to fix. For this the right coronary artery was engaged with a JR-4 guide. Heparin was given for IV anticoagulation. The vessel was wired with a BMW wire which was anchored the PDA. Then the lesion was predilated with a 2.5/12 stent followed by insertion and deployment of a 3.0 x 18 drug-eluting stent. The stent was postdilated with a noncompliant 3.5/15 to high atmospheres. The patient had some coronary spasm which was relieved/resolved by intracoronary nitro. The patient tolerated the procedure without complications. Estimated blood loss less than 10 cc. Total contrast 100 cc. The right wrist access site was closed with a TR Band. RESULTS LEFT VENTRICLE The left ventricular pressure was 103/17 with an LVEDP of 17. The aortic pressure was 128/73 with a mean of 98. There was gradient upon pullback from the left ventricle to aorta. Left the ventriculogram revealed a symmetrically paula ventricle with an estimated ejection fraction of 60%. ANGIOGRAPHIC RESULTS 1. Left main patent with MARISOL-3 flow. Nonobstructive coronary artery disease. It is giving off an LAD and left circumflex artery. 2. The LAD is a transapical vessel, has minimal luminal irregularities; however , no significant obstruction. It is giving off a prominent diagonal which is patent with MARISOL-3 flow; no obstructive coronary artery disease. 3. The left circumflex artery is giving off three OM vessels which are all patent, some tortuosity; however, all are patent with MARISOL-3, nonobstructive coronary artery disease. 4. The right coronary artery is a dominant vessel giving off the PDA. It has a significant 99% block in its mid-segment with MARISOL-2 flow. CONCLUSION 1. Successful PCI to mid-right coronary artery diagnostic for a non-ST elevation PR. 2. Elevated LVEDP. 3. Preserved LV systolic function. RECOMMENDATIONS 1. The patient will go to [facility] for post-cath care. 2. We will start dual antiplatelet agent with aspirin and Effient as well as aggressive medical management for secondary prevention of CAD with beta-blockers , GENIA inhibitors, statins and long-acting nitrate as tolerated. 3. Follow up with cardiology upon discharge. MD UEGENIO Braswell/LOUANN /11:58 AM /12:21 PM TWYLA
[2017-07-22] MEDS: LORazepam 0.5 MG TAB PO PRN (14:13)
[2017-07-22] MEDS ORDERED: IOHEXOL 350 MG/ML 100 ML BTL (for Cath Lab) OTHER ONE (15:20)
--- NOTE | 2017-07-22 17:32 | ECHRPT ---
Indication: CHEST PAIN CONCLUSIONS Normal left ventricular size. Mild concentric left ventricular hypertrophy. The left ventricular systolic function is hyperdynamic with an estimated ejection fraction in the ra nge of 65- 70%. The left atrial size is fnhq-ta-tabyyzbfmo dilated. Ojbz-rp-ktrntmeq mitral valve regurgitation. Aortic valve sclerosis is present. Mild aortic valve regurgitation. BP: 115 / 72 HR: Rhythm: Sinus MEASUREMENTS (Male / Female) Normal Values Technical Quality:Technically difficult study 2D ECHO LV Diastolic Diameter PLAX 4.7 cm 4.2 - 5.9 / 3.9 - 5.3 cm LV Systolic Diameter PLAX 3.3 cm IVS Diastolic Thickness 1.1 cm 0.6 - 1.0 / 0.6 - 0.9 cm LVPW Diastolic Thickness 1.1 cm 0.6 - 1.0 / 0.6 - 0.9 cm LV Relative Wall Thickness 0.5 LVOT Diameter 2.3 cm Aortic Root Diameter 3.0 cm M-MODE AV Cusp Separation MM 2.1 cm DOPPLER AV Peak Velocity 117.0 cm/s AV Peak Gradient 5.5 mmHg AV Mean Gradient 3.0 mmHg AV Velocity Time Integral 18.5 cm LVOT Peak Velocity 96.3 cm/s LVOT Peak Gradient 3.7 mmHg LVOT Velocity Time Integral 16.0 cm AV Area Cont Eq vti 3.6 cm AV Area Cont Eq pk 3.4 cm Mitral E Point Velocity 70.6 cm/s Mitral A Point Velocity 89.3 cm/s Mitral E to A Ratio 0.8 LV E' Lateral Velocity 12.4 cm/s Mitral E to LV E' Lateral Ratio 5.7 LV E' Septal Velocity 6.6 cm/s Mitral E to LV E' Septal Ratio 10.6 PV Peak Velocity 75.9 cm/s PV Peak Gradient 2.3 mmHg FINDINGS LEFT VENTRICLE Normal left ventricular size. Mild concentric left ventricular hypertrophy. The left ventricular systolic function is hyperdynamic with an estimated ejection fraction in the ra nge of 65- 70%. RIGHT VENTRICLE Normal right ventricular size and systolic function. LEFT ATRIUM The left atrial size is llmz-ol-djvubmolxl dilated. RIGHT ATRIUM The right atrial size is normal. ATRIAL SEPTUM Normal atrial septal thickness without atrial level shunting by limited color doppler interrogation. AORTA The aortic root and proximal ascending aorta are normal in size on limited imaging. MITRAL VALVE Eran-ho-dmadodol mitral valve regurgitation. AORTIC VALVE Aortic valve sclerosis is present. Mild aortic valve regurgitation. TRICUSPID VALVE Structurally normal tricuspid valve. No tricuspid valve stenosis or regurgitation. PULMONARY VALVE The pulmonary valve is not well visualized. VESSELS The inferior vena cava is normal in size. PERICARDIUM No pericardial effusion. Cl Coburn MD (Electronically Signed) Final Date:22 July 2017 17:31
[2017-07-22] MEDS: ATORVASTATIN 10 MG TAB PO SCH (20:39)
[2017-07-22] MEDS: traZODone HCL 100 MG TAB PO SCH (20:40)
[2017-07-22] MEDS: MIRTAZAPINE 15 MG TAB PO SCH (20:40)
[2017-07-22] MEDS: METOPROLOL TARTRATE 25 MG TAB PO SCH (20:40)
[2017-07-22] MEDS ORDERED: ATORVASTATIN 10 MG TAB PO SCH (21:00)
[2017-07-23] VITALS (13 sets, daily range): BP systolic 108–122; BP diastolic 62–77; PULSE 66–92; RESP 16–18; TEMP 97.9–98.5; O2SAT 97
[2017-07-23] MEDS: MORPHINE SULFATE 2 MG/ML INJ IV PUSH PRN ×3 (01:04→10:01)
[2017-07-23] MEDS: NITROGLYCERIN 2% OINT 1 GM PACKET TOPICAL SCH (06:07)
[2017-07-23 07:13] LABS: APTT (PATIENT) 27.5 SEC (24.3-30.1)
[2017-07-23] MEDS: SODIUM CHLORIDE 0.9% FLUSH 10 ML FLUSH IV FLUSH SCH (09:00)
[2017-07-23] MEDS ORDERED: ASPIRIN 81 MG CHEW TAB PO SCH (09:00)
[2017-07-23] MEDS ORDERED: PRASUGREL 5 MG TAB PO SCH (09:00)
[2017-07-23] MEDS ORDERED: PRASUGREL 10 MG TAB PO SCH (09:00)
[2017-07-23] MEDS ORDERED: LISINOPRIL 5 MG TAB PO SCH (09:00)
--- NOTE | 2017-07-23 09:08 | PD.CARD.PN ---
Subjective Subjective Remarks s/p PCI to RCA Objective Medications Current Medications Medications (Trade) Dose Ordered Sig/Juan Route Start Time Stop Time Status Last Admin (NS Flush) 2 ml UNSCH PRN IV FLUSH 07/21/17 03:45 (NS Flush) 2 ml BID IV FLUSH 07/21/17 09:00 07/22/17 20:40 (Zofran Inj) 4 mg Q6H PRN IVP 07/21/17 03:45 (Narcan Inj) 0.4 mg UNSCH PRN IV PUSH 07/21/17 03:45 (Milk Of Magnesia Liq) 30 ml Q12H PRN PO 07/21/17 03:45 (Senokot) 17.2 mg Q12H PRN PO 07/21/17 03:45 (Dulcolax Supp) 10 mg DAILY PRN RECTAL 07/21/17 03:45 (Lactulose Liq) 30 ml DAILY PRN PO 07/21/17 03:45 (Neurontin) 800 mg TID PO 07/21/17 09:00 07/22/17 18:19 (Desyrel) 100 mg HS PO 07/21/17 21:00 07/22/17 20:40 (Nitroglycerin 2% Oint) 0.5 inch Q8HR TOPICAL 07/21/17 08:00 07/23/17 06:07 (Morphine Inj) 2 mg Q4H PRN IV PUSH 07/21/17 07:45 07/23/17 06:07 (Lipitor) 10 mg HS PO 07/21/17 21:00 07/22/17 20:39 (Remeron) 15 mg HS PO 07/21/17 21:00 07/22/17 20:40 (Ativan) 0.5 mg Q8H PRN PO 07/21/17 16:00 07/22/17 14:13 (Tylenol) 325 mg Q4H PRN PO 07/22/17 12:15 (Aspirin Chew) 81 mg DAILY PO 07/23/17 09:00 (Effient) 10 mg DAILY PO 07/23/17 09:00 (Lopressor) 12.5 mg BID PO 07/22/17 21:00 07/22/17 20:40 (Prinivil) 5 mg DAILY PO 07/23/17 09:00 (Pill Splitter) 1 ea UNSCH PRN OTHER 07/22/17 12:45 Vital Signs / I&O Vital Signs Date Time Temp Pulse Resp B/P (MAP) Pulse Ox O2 Delivery O2 Flow Rate FiO2 07/23/17 08:01 97 Room Air 07/23/17 07:57 98.5 91 17 113/77 (89) 97 07/23/17 07:01 75 07/23/17 04:00 78 07/23/17 04:00 98.1 82 16 108/62 (77) 97 07/23/17 03:00 76 07/23/17 02:00 76 07/23/17 01:00 78 07/23/17 00:00 73 07/23/17 00:00 97.9 80 18 115/73 (87) 97 07/22/17 23:00 78 07/22/17 22:00 84 07/22/17 21:00 100 07/22/17 20:00 98.7 109 18 150/73 (98) 97 07/22/17 20:00 97 Room Air 07/22/17 20:00 97 07/22/17 19:00 100 07/22/17 18:00 84 07/22/17 17:00 90 07/22/17 16:00 94 07/22/17 15:01 98.9 99 18 143/83 (103) 98 07/22/17 15:01 98.9 99 18 143/83 (103) 98 07/22/17 14:01 84 07/22/17 14:00 83 116/55 (75) 100 07/22/17 13:00 86 107/65 (79) 98 07/22/17 13:00 88 07/22/17 12:15 98.6 93 18 120/65 (83) 97 07/22/17 12:15 98.6 93 18 120/65 (83) 97 07/22/17 11:00 99 07/22/17 10:00 102 I/O 07/22/17 07/22/17 07/22/17 07/23/17 07/23/17 07/23/17 07:00 15:00 23:00 07:00 15:00 23:00 Intake Total 294 ml 500 ml 600 ml 240 ml Output Total 2200 ml 500 ml Balance 294 ml 500 ml -1600 ml -260 ml Intake Oral 240 ml 600 ml 240 ml IV Total 54 ml 500 ml Output Urine Total 2200 ml 500 ml # Voids 1 5 # Bowel Movements 0 Physical Exam GENERAL: Well-nourished, well-developed patient. SKIN: Warm and dry. HEAD: Normocephalic. EYES: No scleral icterus. No injection or drainage. NECK: Supple, trachea midline. No JVD or lymphadenopathy. CARDIOVASCULAR: Regular rate and rhythm without murmurs, gallops, or rubs. RESPIRATORY: Breath sounds equal bilaterally. No accessory muscle use. GASTROINTESTINAL: Abdomen soft, non-tender, nondistended. EXTREMITIES: No cyanosis, or edema. NEUROLOGICAL: Awake, alert, and oriented x 3. Non-focal. Laboratory Laboratory Tests Test 07/23/17 06:05 Activated Partial Thromboplast Time 27.5 SEC Imaging Last Impressions Chest X-Ray 07/21/17 0128 Signed Impressions: Service Date/Time: Friday, July 21, 2017 01:39 - CONCLUSION: No evidence of acute cardiopulmonary disease. Tigre Beauchamp MD Myocardial Perfusion Scan Nuc Med 07/21/17 0000 Signed Impressions: Service Date/Time: Friday, July 21, 2017 13:15 - CONCLUSION: 1. Large perfusion defect involving the inferior septal and inferior borges with partial redistribution in the inferior septal region. This is characteristic of ischemia. 2. Normal wall motion and calculated ejection fraction. RISK CATEGORY: Intermediate (1-3%% Annual Mortality Rate) Ag Martell MD Assessment and Plan Problem List: (1) NSTEMI (non-ST elevated myocardial infarction) ICD Codes: I21.4 - Non-ST elevation (NSTEMI) myocardial infarction Plan: s/p PCI to RCA Cont DAPT with ASA and Effient Cont BB, ACei, statin and Imdur Refer to cardiac rehab F/U with cardiology upon discharge (2) Chest pain ICD Codes: R07.9 - Chest pain, unspecified Status: Acute Cl Coburn MD Jul 23, 2017 09:08
[2017-07-23] MEDS: GABAPENTIN 400 MG CAP PO SCH (10:03)
[2017-07-23] MEDS: METOPROLOL TARTRATE 25 MG TAB PO SCH (10:03)
[2017-07-23] MEDS ORDERED: LISI-519 PO (11:31)
[2017-07-23] MEDS ORDERED: LIPI10TA PO (11:31)
[2017-07-23] MEDS ORDERED: PRAS10TA PO (11:31)
[2017-07-23] MEDS ORDERED: METO25TA3 PO (11:31)
[2017-07-23] MEDS ORDERED: ASPI81CH25 PO (11:31)
--- NOTE | 2017-07-23 11:32 | HHI.DCPOC ---
Discharge Care Plan Diagnosis: (1) NSTEMI (non-ST elevated myocardial infarction) (2) Chest pain (3) Hypertension Goals to Promote Your Health * To prevent worsening of your condition and complications * To maintain your health at the optimal level Directions to Meet Your Goals Take your medications as prescribed Follow your dietary instruction Follow activity as directed Keep your appointments as scheduled Take your immunizations and boosters as scheduled If your symptoms worsen call your PCP, if no PCP go to Urgent Care Center or Emergency Room Smoking is Dangerous to Your Health. Avoid second hand smoke Call the 24-hour hour crisis hotline for domestic abuse at Harsh Guevara MD Jul 23, 2017 11:32
--- NOTE | 2017-07-23 11:39 | HHI.DS ---
Discharge Summary Admission Date Jul 21, 2017 at 07:38 Discharge Date: Jul 23, 2017 Admitting Diagnosis (1) Chest pain ICD Code: R07.9 - Chest pain, unspecified Status: Acute (2) NSTEMI (non-ST elevated myocardial infarction) ICD Code: I21.4 - Non-ST elevation (NSTEMI) myocardial infarction Procedures Heart catheterization with stent placement Brief History - From Admission HPI from the admitting physician 62 y/o female with a history of fibromyalgia presented to the ED with complaints of back and chest pain. She states she woke up Saturday with severe intermittent back pain with no radiation, and yesterday she had associated constant chest pressure on exertion when climbing stairs with associated shortness of breath. She states the only medication change is she was recently placed on Xigduo for possible appetite suppressant. No history of sleep apnea, never been tested but she does snore. CBC/BMP: 07/22/17 0606 07/22/17 0606 Significant Findings Laboratory Tests Test 07/21/17 01:31 07/21/17 03:45 07/21/17 08:22 07/21/17 10:50 Red Blood Count 3.91 MIL/MM3 (4.00-5.30) Hematocrit 34.8 % (35.0-46.0) Prothrombin Time 9.3 SEC (9.8-11.6) Activated Partial Thromboplast Time 21.2 SEC (24.3-30.1) 35.5 SEC (24.3-30.1) Random Glucose 123 MG/DL (74-106) Calcium Level 8.2 MG/DL (8.5-10.1) Chloride Level 112 MEQ/L (98-107) Estimat Glomerular Filtration Rate 60 ML/MIN (>89) Hemoglobin A1c 6.1 % (4.3-6.0) Troponin I 0.09 NG/ML (0.02-0.05) 0.17 NG/ML (0.02-0.05) 0.31 NG/ML (0.02-0.05) Triglycerides Level 288 MG/DL (42-150) Cholesterol Level 238 MG/DL (120-200) LDL Cholesterol 129 MG/DL (0-99) Test 07/21/17 17:06 07/21/17 23:30 07/22/17 06:06 07/23/17 06:05 Activated Partial Thromboplast Time 66.7 SEC (24.3-30.1) 43.9 SEC (24.3-30.1) 41.5 SEC (24.3-30.1) Chloride Level 108 MEQ/L (98-107) Estimat Glomerular Filtration Rate 63 ML/MIN (>89) PE at Discharge GENERAL: This is a well-nourished, well-developed patient, in no apparent distress. CARDIOVASCULAR: Normal rate and regular rhythm without murmurs, gallops, or rubs. RESPIRATORY: Good respiratory efforts. Breath sounds equal and clear to auscultation bilaterally. GASTROINTESTINAL: Abdomen soft, non-tender, non-distended. Normal active bowel sounds MUSCULOSKELETAL: Extremities without cyanosis, or edema. NEURO: Alert & Oriented x4 to person, place, time, situation. Moves all ext x4 PSYCH: Appropriate mood and affect. Pt update on day of discharge Patient reports she is doing well. No shortness of breath or chest pain. Hospital Course 62 y/o female with a history of fibromyalgia presented to the ED with complaints of back and chest pain. Evaluation and treatment course detailed below: Atypical chest pain/NSTEMI: Patient's symptoms are atypical, however troponins are 0.09, 0.17. Positive nuclear stress test -Patient underwent heart catheterization with s/p PCI to RCA. Continue on ASA , Effient, Statin, ACEi. Follow up outpatient with Cardiology Hyperlipidemia: Lipid profile checked with high triglycerides and LDL 129. LFTs within normal limits. -On statin Right lower extremity pain: No swelling, tenderness, and Homans signs negative. D-dimer is within normal limits. -Probably secondary to chronic pain and fibromyalgia, continue home therapies Fibromyalgia: chronic -Continue home gabapentin -Recommend sleep study outpatient to rule out sleep apnea Anxiety/depression/insomnia: Chronic. -Continue home trazodone and Remeron Pt Condition on Discharge: Good Discharge Disposition: Discharge Home Discharge Time: > 30 minutes Discharge Instructions DIET: Follow Instructions for: Heart Healthy Diet Activities you can perform: Regular-No Restrictions Follow up Referrals: Cardiology - 2 Weeks with Cl Coburn MD PCP Follow-up - 1 Week New Medications: Aspirin (Aspirin Low Strength) 81 Mg Chew 81 MG PO DAILY, #30 EA Atorvastatin (Lipitor) 10 Mg Tab 10 MG PO HS, #30 TAB Lisinopril (Lisinopril) 5 Mg Tab 5 MG PO DAILY, #30 TAB Metoprolol Tartrate (Metoprolol Tartrate) 25 Mg Tab 12.5 MG PO BID, #60 TAB Prasugrel (Effient) 10 Mg Tab 10 MG PO DAILY, #30 TAB Continued Medications: Gabapentin (Gabapentin) 800 Mg Tab 800 MG PO QID, #90 TAB 0 Refills Ibuprofen (Ibuprofen) 800 Mg Tab 800 MG PO Q6HR PRN for PAIN, #40 TAB 0 Refills Mirtazapine (Remeron) 15 Mg Tab 15 MG PO HS for Depression Control, #30 TAB 0 Refills Trazodone (Trazodone) 100 Mg Tablet 100 MG PO HS for Control Depression, #30 TAB 0 Refills Discontinued Medications: Propranolol (Propranolol) Unknown Strength Tab Unknown Dose PO Q12HR, #60 TAB 0 Refills Harsh Guevara MD Jul 23, 2017 11:39
[2017-07-24] MEDS ORDERED: METO50TA PO (13:34)
[2017-07-24] MEDS ORDERED: ISOS10TA3 PO (15:32)
== END 2017-07-23 14:24 | disposition home or self-care (01) | DRG 247 ==
LOC: NEPC 00:46 → NEDA 03:50 → NEPHCDU 04:54 → OBSVTOIN 07:38 → HCIN 12:18
PROVIDERS: ADMIT Family Medicine; ATTEND Family Medicine
PROC: 027034Z Dilation of Coronary Artery, One Artery with Drug-eluting Intraluminal Device, Percutaneous Approach (ICD-10-PCS; principal; 2017-07-22)
PROC: 4A023N7 Measurement of Cardiac Sampling and Pressure, Left Heart, Percutaneous Approach (ICD-10-PCS; 2017-07-22)
PROC: B2111ZZ Fluoroscopy of Multiple Coronary Arteries using Low Osmolar Contrast (ICD-10-PCS; 2017-07-22)
PROC: B2151ZZ Fluoroscopy of Left Heart using Low Osmolar Contrast (ICD-10-PCS; 2017-07-22)
DX: I21.4 Non-ST elevation (NSTEMI) myocardial infarction (principal); I10 Essential (primary) hypertension; I25.119 Atherosclerotic heart disease of native coronary artery with unspecified angina pectoris; M54.30 Sciatica, unspecified side; M79.7 Fibromyalgia; M79.604 Pain in right leg; G47.00 Insomnia, unspecified; F32.9 Major depressive disorder, single episode, unspecified; F41.9 Anxiety disorder, unspecified; E78.1 Pure hyperglyceridemia; G89.29 Other chronic pain
CPT/HCPCS: 71010; 76937; 78452; 80053; 80061; 82550; 83036; 83690; 83735; 83880; 84484; 85025; 85379; 85610; 85730; 92928; 93005; 93017; 93306; 93458; 99152; 99153; 99285; A9502; C1725; C1769; C1874; C1887; C1893; J1644; J2250; J2270; J2405; J2785; J3010; Q9967

== ENCOUNTER 2017-07-24 13:01 | Emergency (ER) | payer BC ==
[~2017-07-24] VITALS: Ht 149.9 cm; Wt 78.0 kg
[~2017-07-24 13:01] MED LIST: ASPI81CH25 PO; GABA800T PO; IBUP1TAB7 PO; LIPI10TA PO; LISI-519 PO; METO25TA3 PO; PRAS10TA PO; REME15TA PO; TRAZ100T10 PO
[2017-07-24 13:02] VITALS: BP 114/67; PULSE 78; RESP 18; TEMP 98.4; O2SAT 96
[2017-07-24 13:16] VITALS: BP 105/63; PULSE 78; RESP 18; TEMP 97.8; O2SAT 99
[2017-07-24] MEDS ORDERED: METO50TA PO (13:34)
[2017-07-24 13:36] VITALS: BP_SYST 105; BP_SYST 114; BP_DIAS 56; BP_DIAS 63; PULSE 78; RESP 17; O2SAT 100
[2017-07-24] MEDS: SODIUM CHLORIDE 0.9% FLUSH 10 ML FLUSH IVF PRN ×2 (13:45→15:10)
[2017-07-24] MEDS ORDERED: KETOROLAC TROMETHAMINE 30 MG/ML (IVP) VIAL IV PUSH ONE (13:45)
--- NOTE | 2017-07-24 13:57 | PD ---
HPI Chief Complaint: Chest Pain Time Seen by Provider: 13:20 Travel History International Travel<30 days: No Contact w/Intl Traveler<30days: No Traveled to known affect area: No History of Present Illness HPI 62-year-old female presents to the emergency department for evaluation of left- sided chest pain that radiates to her back that started this morning upon awakening. Patient recently had cardiac catheterization done July 22, 2017, 2 days ago for NSTEMI, positive stress test. Patient has successful PCI to right mid coronary artery. She was started on aspirin, atorvastatin, lisinopril , metoprolol, Effient. She states he is she is taking these as prescribed. She did take 281 mg aspirins today. Patient presents history of fibromyalgia, depression, restless leg syndrome. Patient states the pain is worse with deep breathing, movement. She denies any alleviating factors. Patient states she felt okay yesterday, woke up with the pain this morning. She states she is nauseous. She denies any vomiting, fevers, chills, cough, congestion. No diaphoresis. Patient states she called Dr. Watts's office, her casting chipper, and came to the emergency department. Patient states the pain feels like pressure. PFSH Past Medical History Hx Anticoagulant Therapy: Yes (ASA/ EFFIENT) Asthma: No Anxiety: Yes Depression: Yes Cardiac Catheterization: Yes Cardiovascular Problems: Yes High Cholesterol: No Congestive Heart Failure: No COPD: No Diabetes: No Diminished Hearing: No Fibromyalgia: Yes Musculoskeletal: No Neurologic: No Sleep Apnea: No Thyroid Disease: No Tetanus Vaccination: > 5 Years Influenza Vaccination: Yes Past Surgical History Appendectomy: Yes Section: Yes Coronary Stent: Yes Hysterectomy: Yes Other Surgery: Yes (BREAST REDUCTION , csection, hysterectomy) Social History Alcohol Use: No Tobacco Use: No Substance Use: No (HX OF) Allergies-Medications (Allergen,Severity, Reaction): Coded Allergies: No Known Allergies (Verified , 07/24/17) Reported Meds & Prescriptions Reported Meds & Active Scripts Active Aspirin Low Strength (Aspirin) 81 Mg Chew 81 Mg PO DAILY Lisinopril 5 Mg Tab 5 Mg PO DAILY Lipitor (Atorvastatin Calcium) 10 Mg Tab 10 Mg PO HS Effient (Prasugrel) 10 Mg Tab 10 Mg PO DAILY Reported Metoprolol Tartrate 50 Mg Tab 50 Mg PO BID Trazodone (Trazodone HCl) 100 Mg Tablet 100 Mg PO HS Remeron (Mirtazapine) 15 Mg Tab 15 Mg PO HS Gabapentin 800 Mg Tab 800 Mg PO QID Review of Systems Except as stated in HPI: all other systems reviewed are Neg Physical Exam Narrative GENERAL: Well-nourished, well-developed female patient, ambulatory. Afebrile. SKIN: Focused skin assessment warm/dry. HEAD: Normocephalic. Atraumatic. EYES: No scleral icterus. No injection or drainage. NECK: Supple, trachea midline. No JVD or lymphadenopathy. CARDIOVASCULAR: Regular rate and rhythm without murmurs, gallops, or rubs. Bilateral radial and pedal pulses are 2+. RESPIRATORY: Breath sounds equal bilaterally. No accessory muscle use. Lungs sounds are clear to auscultation. GASTROINTESTINAL: Abdomen soft, non-tender, nondistended. MUSCULOSKELETAL: No cyanosis, or edema. Chest pain is easily reproduced with palpation. BACK: Nontender without obvious deformity. No CVA tenderness. Data Data Last Documented VS Vital Signs Date Time Temp Pulse Resp B/P (MAP) Pulse Ox O2 Delivery O2 Flow Rate FiO2 07/24/17 15:15 16 07/24/17 14:30 97.8 79 107/67 (80) 98 Room Air Orders Orders Electrocardiogram (07/24/17 ) Electrocardiogram (07/24/17 13:32) Basic Metabolic Panel (Bmp) (07/24/17 13:32) Ckmb (Isoenzyme) Profile (07/24/17 13:32) Complete Blood Count With Diff (07/24/17 13:32) Magnesium (Mg) (07/24/17 13:32) Prothrombin Time / Inr (Pt) (07/24/17 13:32) Act Partial Throm Time (Ptt) (07/24/17 13:32) Troponin I (07/24/17 13:32) Chest, Single Ap (07/24/17 13:32) Ecg Monitoring (07/24/17 13:32) Bilateral Bp Monitoring (07/24/17 13:32) Iv Access Insert/Monitor (07/24/17 13:32) Oximetry (07/24/17 13:32) Oxygen Administration (07/24/17 13:32) Sodium Chloride 0.9% Flush (Ns Flush) (07/24/17 13:45) Ketorolac Inj (Toradol Inj) (07/24/17 13:45) Morphine Inj (Morphine Inj) (07/24/17 15:15) Ondansetron Inj (Zofran Inj) (07/24/17 15:15) Labs Laboratory Tests Test 07/24/17 13:40 White Blood Count 8.3 TH/MM3 Red Blood Count 4.16 MIL/MM3 Hemoglobin 12.5 GM/DL Hematocrit 36.8 % Mean Corpuscular Volume 88.3 FL Mean Corpuscular Hemoglobin 30.1 PG Mean Corpuscular Hemoglobin Concent 34.0 % Red Cell Distribution Width 13.1 % Platelet Count 307 TH/MM3 Mean Platelet Volume 7.5 FL Neutrophils (%) (Auto) 56.4 % Lymphocytes (%) (Auto) 31.2 % Monocytes (%) (Auto) 7.5 % Eosinophils (%) (Auto) 3.9 % Basophils (%) (Auto) 1.0 % Neutrophils # (Auto) 4.7 TH/MM3 Lymphocytes # (Auto) 2.6 TH/MM3 Monocytes # (Auto) 0.6 TH/MM3 Eosinophils # (Auto) 0.3 TH/MM3 Basophils # (Auto) 0.1 TH/MM3 CBC Comment DIFF FINAL Differential Comment Prothrombin Time 10.0 SEC Prothromb Time International Ratio 0.9 RATIO Activated Partial Thromboplast Time 27.9 SEC Blood Urea Nitrogen 23 MG/DL Creatinine 1.13 MG/DL Random Glucose 78 MG/DL Calcium Level 9.2 MG/DL Magnesium Level 2.6 MG/DL Sodium Level 141 MEQ/L Potassium Level 4.4 MEQ/L Chloride Level 106 MEQ/L Carbon Dioxide Level 29.1 MEQ/L Anion Gap 6 MEQ/L Estimat Glomerular Filtration Rate 49 ML/MIN Total Creatine Kinase 87 U/L Troponin I 0.38 NG/ML [facility] Medical Decision Making Medical Screen Exam Complete: Yes Emergency Medical Condition: Yes Medical Record Reviewed: Yes Interpretation(s) Chest x-ray -no acute disease Differential Diagnosis ACS versus Brandyn syndrome versus chest wall pain versus anxiety versus pneumonia Narrative Course 62-year-old female presents to the emergency department for evaluation of chest pain that started this morning. Patient had cardiac catheterization done [address] Watts. EKG shows sinus rhythm, heart rate 78, no acute ST changes. CBC, BMP, magnesium, CK, troponin, PTT, PT/INR, chest x-ray ordered and pending. Patient took aspirin 162 mg by mouth today. She's given Toradol 30 mg IV for pain. CBC is unremarkable. BMP shows BUN 23, creatinine 1.13. Magnesium is 2.6. CK is 87. Troponin is 0.38. Coags are unremarkable. Chest x-ray shows no acute disease. My attending physician, Dr. Carvajal, spoke to Dr. Watts, patient's casting chipper, regarding patient. He was given copy of EKG and he reviewed his cardiac catheterization. He would like the patient to be discharged prescription for Imdur twice a day. Patient is instructed to follow-up with Dr. Watts. She is return here for any acute worsening of symptoms. She verbalizes agreement and understanding. The patient was discharged in stable condition with instructions, including return instructions and follow up instructions. Diagnosis Primary Impression: Chest pain Qualified Codes: R07.9 - Chest pain, unspecified Referrals: Cl Coburn MD call for appointment Patient Instructions: Chest Pain (ED), General Instructions Additional Instructions: Take Imdur as directed. Follow up with Dr. Watts. Return to the emergency department for any acute, worsening of symptoms. Med/Other Pt SpecificInfo: Prescription(s) given Scripts Isosorbide Mononitrate (Isosorbide Mononitrate) 10 Mg Tab 10 MG PO BID for Prevent Chest Pain, #60 TAB Take 2 doses 7 hours apart. Prov: Linda eRa 07/24/17 Disposition: 01 DISCHARGE HOME Condition: Stable Linda Rea Jul 24, 2017 13:57
[2017-07-24 14:09] LABS: AUTOMATED NEUTROPHIL # 4.7 TH/MM3 (1.8-7.7); BASOPHIL # 0.1 TH/MM3 (0-0.2); EOSINOPHIL # 0.3 TH/MM3 (0-0.4); EOSINOPHIL % 3.9 % (0.0-4.0); HEMATOCRIT 36.8 % (35.0-46.0); HEMO FLAGS DIFF FINAL; LYMPH % 31.2 % (9.0-44.0); LYMPHOCYTE # 2.6 TH/MM3 (1.0-4.8); MEAN CELL VOLUME 88.3 FL (80.0-100.0); MEAN CORPUSCULAR HEMOGLOBIN 30.1 PG (27.0-34.0); MONO % 7.5 % (0.0-8.0); NEUT % 56.4 % (16.0-70.0); PLATELET COUNT 307 TH/MM3 (150-450); RED BLOOD COUNT 4.16 MIL/MM3 (4.00-5.30); RED CELL DISTRIBUTION WIDTH 13.1 % (11.6-17.2); WHITE BLOOD COUNT 8.3 TH/MM3 (4.0-11.0)
[2017-07-24 14:16] LABS: APTT (PATIENT) 27.9 SEC (24.3-30.1); INTERNATIONAL NORMALIZED RATIO 0.9 RATIO
[2017-07-24 14:22] LABS: BICARBONATE 29.1 MEQ/L (21.0-32.0); MAGNESIUM 2.6 MG/DL (1.5-2.5); POTASSIUM 4.4 MEQ/L (3.5-5.1)
[2017-07-24 14:30] VITALS: BP 107/67; PULSE 79; RESP 17; TEMP 97.8; O2SAT 98
--- NOTE | 2017-07-24 14:37 | RADRPT ---
EXAM DATE/TIME: 07/24/2017 13:56 [facility] COMPARISON: CHEST SINGLE AP, July 21, 2017, 1:39. INDICATIONS : Chest pain and shortness of breath. MEDICAL HISTORY : Fibromyalgia. SURGICAL HISTORY : section. Hysterectomy. Appendectomy. Breast Reduction ENCOUNTER: Initial ACUITY: 1 day PAIN SCORE: 8/10 LOCATION: Bilateral chest FINDINGS: A single view of the chest demonstrates the lungs to be symmetrically aerated without evidence of mas s, infiltrate or effusion. The cardiomediastinal contours are unremarkable. Osseous structures are intact. CONCLUSION: No acute disease. Randall Davies MD on July 24, 2017 at 14:36 Board Certified Radiologist. This report was verified electronically.
[2017-07-24 15:15] VITALS: RESP 16
[2017-07-24] MEDS ORDERED: ONDANSETRON HCL 4 MG/2 ML VIAL IV PUSH ONE (15:15)
[2017-07-24] MEDS ORDERED: MORPHINE SULFATE 4 MG/ML INJ IV PUSH ONE (15:15)
[2017-07-24] MEDS ORDERED: ISOS10TA3 PO (15:32)
[2017-07-24 16:00] VITALS: BP 130/77; TEMP 97.8
--- NOTE | 2017-07-25 16:26 | EKG ---
Date Performed: 07/24/2017 Time Performed: 13:27:46 PTAGE: 62 years EKG: Sinus rhythm When compared to previous tracing, ST-T wave changes are new. Clinical corrolation is suggested. NOR MAL ECG PREVIOUS TRACING : 07/21/2017 03.50.57 DOCTOR: Abhijit Cummings Interpretating Date/Time 07/25/2017 16:26:08
== END 2017-07-24 16:00 | disposition home or self-care (01) ==
LOC: NEPE 13:01
DX: R07.9 Chest pain, unspecified (principal); I25.2 Old myocardial infarction; F41.9 Anxiety disorder, unspecified; F32.9 Major depressive disorder, single episode, unspecified; G25.81 Restless legs syndrome; M79.7 Fibromyalgia
CPT/HCPCS: 71010; 80048; 82550; 83735; 84484; 85025; 85610; 85730; 93005; 96374; 96375; 99285; J1885; J2270; J2405

== ENCOUNTER 2017-08-03 10:32 | Emergency (ER) | payer BC ==
[~2017-08-03] VITALS: Ht 149.9 cm; Wt 67.0 kg
[~2017-08-03 10:32] MED LIST changes: -IBUP1TAB7 PO; +ISOS10TA3 PO; -METO25TA3 PO; +METO50TA PO
[2017-08-03 10:34] VITALS: BP 138/66; PULSE 69; RESP 18; TEMP 98.4; O2SAT 100
--- NOTE | 2017-08-03 11:42 | PD ---
HPI Chief Complaint: Pain: Acute or Chronic Time Seen by Provider: 11:22 Travel History International Travel<30 days: No Contact w/Intl Traveler<30days: No Traveled to known affect area: No History of Present Illness HPI 62-year-old female complains of left arm pain. Patient states that the pain started this morning. Patient states the pain aching pain started left forearm with radiation to left shoulder. Patient denies any injury. Patient denies any fever chills. Patient denies any chest pain or shortness of breath. Patient has history of NSTEMI 2 weeks ago status post PCI right coronary artery. Patient is on Effient and aspirin 81 mg daily. Patient has history of fibromyalgia. On a scale of 1-10 the pain is a 7. PFSH Past Medical History Hx Anticoagulant Therapy: Yes (81 ASA) Asthma: No Anxiety: Yes Depression: Yes Cardiac Catheterization: Yes Cardiovascular Problems: Yes ([place] WITH STENT) High Cholesterol: No Congestive Heart Failure: No COPD: No Diabetes: No Diminished Hearing: No Fibromyalgia: Yes Medical other: Yes (SCIATICA ) Musculoskeletal: No Neurologic: No Sleep Apnea: No Thyroid Disease: No ?: Not Past Surgical History Appendectomy: Yes Section: Yes Coronary Stent: Yes (07/22/2017) Hysterectomy: Yes Other Surgery: Yes (BREAST REDUCTION , csection, hysterectomy) Social History Alcohol Use: No Tobacco Use: No Substance Use: No (HX OF) Allergies-Medications (Allergen,Severity, Reaction): Coded Allergies: No Known Allergies (Verified , 07/24/17) Reported Meds & Prescriptions Reported Meds & Active Scripts Active Isosorbide Mononitrate 10 Mg Tab 10 Mg PO BID Take 2 doses 7 hours apart. Aspirin Low Strength (Aspirin) 81 Mg Chew 81 Mg PO DAILY Lisinopril 5 Mg Tab 5 Mg PO DAILY Lipitor (Atorvastatin Calcium) 10 Mg Tab 10 Mg PO HS Effient (Prasugrel) 10 Mg Tab 10 Mg PO DAILY Reported Metoprolol Tartrate 50 Mg Tab 50 Mg PO BID Trazodone (Trazodone HCl) 100 Mg Tablet 100 Mg PO HS Remeron (Mirtazapine) 15 Mg Tab 15 Mg PO HS Gabapentin 800 Mg Tab 800 Mg PO QID Review of Systems General / Constitutional: No: Fever Eyes: No: Visual changes HENT: No: Headaches Cardiovascular: No: Chest Pain or Discomfort Respiratory: No: Shortness of Breath Gastrointestinal: No: Abdominal Pain Genitourinary: No: Dysuria Musculoskeletal: Positive: Pain Skin: No Rash Neurologic: No: Weakness Psychiatric: No: Depression Endocrine: No: Polydipsia Hematologic/Lymphatic: No: Easy Bruising Physical Exam Narrative GENERAL: Well-nourished, well-developed patient. SKIN: Focused skin assessment warm/dry. HEAD: Normocephalic. EYES: No scleral icterus. No injection or drainage. NECK: Supple, trachea midline. No JVD or lymphadenopathy. CARDIOVASCULAR: Regular rate and rhythm without murmurs, gallops, or rubs. RESPIRATORY: Breath sounds equal bilaterally. No accessory muscle use. GASTROINTESTINAL: Abdomen soft, non-tender, nondistended. MUSCULOSKELETAL: No cyanosis, or edema. Mild to moderate tenderness diffuse over the left forearm. Full range of motion the elbow and wrist and fingers. No redness no heat no swelling noted. Good capillary refill. Sensorimotor function distally intact. BACK: Nontender without obvious deformity. No CVA tenderness. Neurologic exam normal. Data Data Last Documented VS Vital Signs Date Time Temp Pulse Resp B/P (MAP) Pulse Ox O2 Delivery O2 Flow Rate FiO2 08/03/17 12:36 21 08/03/17 12:34 61 120/71 (87) 98 Room Air 08/03/17 10:34 98.4 Orders Orders Electrocardiogram (08/03/17 ) Complete Blood Count With Diff (08/03/17 11:29) Basic Metabolic Panel (Bmp) (08/03/17 11:29) Creatine Kinase (Cpk) (08/03/17 11:29) Troponin I (08/03/17 11:29) Prothrombin Time / Inr (Pt) (08/03/17 11:29) Act Partial Throm Time (Ptt) (08/03/17 11:29) Iv Access Insert/Monitor (08/03/17 11:29) Ecg Monitoring (08/03/17 11:29) Oximetry (08/03/17 11:29) Forearm (2vws) (08/03/17 11:29) Us Arm Venous Doppler (08/03/17 11:29) Morphine Inj (Morphine Inj) (08/03/17 11:45) Ondansetron Inj (Zofran Inj) (08/03/17 11:45) Labs Laboratory Tests Test 08/03/17 11:50 White Blood Count 10.1 TH/MM3 Red Blood Count 4.08 MIL/MM3 Hemoglobin 12.7 GM/DL Hematocrit 36.2 % Mean Corpuscular Volume 88.6 FL Mean Corpuscular Hemoglobin 31.0 PG Mean Corpuscular Hemoglobin Concent 35.0 % Red Cell Distribution Width 13.5 % Platelet Count 348 TH/MM3 Mean Platelet Volume 7.9 FL Neutrophils (%) (Auto) 46.9 % Lymphocytes (%) (Auto) 42.6 % Monocytes (%) (Auto) 7.4 % Eosinophils (%) (Auto) 2.3 % Basophils (%) (Auto) 0.8 % Neutrophils # (Auto) 4.7 TH/MM3 Lymphocytes # (Auto) 4.3 TH/MM3 Monocytes # (Auto) 0.8 TH/MM3 Eosinophils # (Auto) 0.2 TH/MM3 Basophils # (Auto) 0.1 TH/MM3 CBC Comment DIFF FINAL Differential Comment Prothrombin Time 10.0 SEC Prothromb Time International Ratio 0.9 RATIO Activated Partial Thromboplast Time 28.7 SEC Blood Urea Nitrogen 15 MG/DL Creatinine 0.94 MG/DL Random Glucose 77 MG/DL Calcium Level 9.1 MG/DL Sodium Level 141 MEQ/L Potassium Level 3.8 MEQ/L Chloride Level 106 MEQ/L Carbon Dioxide Level 28.2 MEQ/L Anion Gap 7 MEQ/L Estimat Glomerular Filtration Rate 60 ML/MIN Total Creatine Kinase 74 U/L Troponin I LESS THAN 0.02 NG/ML [facility]DM Medical Decision Making Medical Screen Exam Complete: Yes Emergency Medical Condition: Yes Interpretation(s) 11:42 AM. EKG shows sinus rhythm nonspecific ST-T wave change. 1351 PM. Last Impressions Upper Extremity Ultrasound 08/03/171128 Signed Impressions: Service Date/Time: Thursday, August 03, 2017 12:33 - CONCLUSION: Negative exam. No sonographic or Doppler findings of the deep venous thrombosis in the left upper extremity. Demond Norwood MD Radius/Ulna X-Ray 08/03/171128 Signed Impressions: Service Date/Time: Thursday, August 03, 2017 11:51 - CONCLUSION: No acute disease. Giorgio Fernandez MD 1351 PM. CBC within normal limit. BMP within normal limit. Cardiac Enzymes are normal. Differential Diagnosis Differential diagnosis including musculoskeletal, DVT, angina, [place], PE, pneumothorax. Narrative Course 62-year-old female with left forearm pain. Patient has history of NSTEMI 2 weeks ago status post PCI right coronary artery. Patient's on Effient and aspirin 81 mg daily. Diagnosis Primary Impression: Strain of left forearm Qualified Codes: S56.912A - Strain of unspecified muscles, fascia and tendons at forearm level, left arm, initial encounter Patient Instructions: General Instructions Additional Instructions: Take medication as needed for pain. Follow-up with personal physician. Return if worse. Med/Other Pt SpecificInfo: Prescription(s) given Scripts Methocarbamol (Robaxin) 750 Mg Tab 750 MG PO QID for Muscle Spasm, #40 TAB 0 Refills Prov: Willie Porras MD 08/03/17 Disposition: 01 DISCHARGE HOME Condition: Stable Willie Porras MD Aug 03, 2017 11:42
[2017-08-03] MEDS ORDERED: MORPHINE SULFATE 2 MG/ML INJ IV PUSH ONE (11:45)
[2017-08-03] MEDS ORDERED: ONDANSETRON HCL 4 MG/2 ML VIAL IV PUSH ONE (11:45)
[2017-08-03 12:13] LABS: AUTOMATED NEUTROPHIL # 4.7 TH/MM3 (1.8-7.7); BASOPHIL # 0.1 TH/MM3 (0-0.2); BASOPHIL % 0.8 % (0.0-2.0); EOSINOPHIL # 0.2 TH/MM3 (0-0.4); EOSINOPHIL % 2.3 % (0.0-4.0); HEMATOCRIT 36.2 % (35.0-46.0); HEMO FLAGS DIFF FINAL; LYMPH % 42.6 % (9.0-44.0); LYMPHOCYTE # 4.3 TH/MM3 (1.0-4.8); MEAN CELL VOLUME 88.6 FL (80.0-100.0); MONO % 7.4 % (0.0-8.0); NEUT % 46.9 % (16.0-70.0); PLATELET COUNT 348 TH/MM3 (150-450); RED BLOOD COUNT 4.08 MIL/MM3 (4.00-5.30); RED CELL DISTRIBUTION WIDTH 13.5 % (11.6-17.2); WHITE BLOOD COUNT 10.1 TH/MM3 (4.0-11.0)
--- NOTE | 2017-08-03 12:17 | RADRPT ---
EXAM DATE/TIME: 08/03/2017 11:51 [facility] COMPARISON: No previous studies available for comparison. INDICATIONS : Left forearm pain for 24 hours with no known injury MEDICAL HISTORY : None. SURGICAL HISTORY : None. ENCOUNTER: Initial ACUITY: 1 day PAIN SCORE: 5/10 LOCATION: Left entire forearm FINDINGS: Two view examination of the left forearm demonstrates no evidence of fracture or dislocation. Bony m ineralization is normal. The soft tissue structures are intact. CONCLUSION: No acute disease. Giorgio Fernandez MD on August 03, 2017 at 12:15 Board Certified Radiologist. This report was verified electronically.
[2017-08-03 12:31] LABS: APTT (PATIENT) 28.7 SEC (24.3-30.1); INTERNATIONAL NORMALIZED RATIO 0.9 RATIO
[2017-08-03 12:34] VITALS: BP 120/71; PULSE 61; RESP 20; O2SAT 98
[2017-08-03 12:36] VITALS: RESP 21
[2017-08-03 12:36] LABS: ANION GAP 7 MEQ/L (5-15); BICARBONATE 28.2 MEQ/L (21.0-32.0); CHLORIDE 106 MEQ/L (98-107); GLOMERULAR FILTRATION RATE 60 ML/MIN (>89); POTASSIUM 3.8 MEQ/L (3.5-5.1); SODIUM (NA) 141 MEQ/L (136-145)
[2017-08-03 12:46] LABS: BLOOD UREA NITROGEN 15 MG/DL (7-18)
[2017-08-03 12:48] LABS: CREATINE KINASE 74 U/L (26-192)
--- NOTE | 2017-08-03 13:09 | RADRPT ---
EXAM DATE/TIME: 08/03/2017 12:33 [facility] COMPARISON: No previous studies available for comparison. INDICATIONS : Left arm pain. MEDICAL HISTORY : Myocardial infarction. Firomyalgia. Depression. Anxiety. Sciatica. Substance use. Anticoagulant the rapy, Aspirin 81mg. SURGICAL HISTORY : Coronary artery stent. Appendectomy. Hysterectomy. Cardiac cath. section. Breast reduction. ENCOUNTER: Initial ACUITY: 1 day PAIN SCORE: 5/10 LOCATION: Left arm. FINDINGS: There is spontaneous flow documented in the brachial, basilic, cephalic, axillary, and subclavian vei ns. The vessels are compressible and augmentation response is documented. No filling defects are se en. The flow is phasic with respiration. Direction of flow in the jugular vein is caudal. CONCLUSION: Negative exam. No sonographic or Doppler findings of the deep venous thrombosis in the left uppe r extremity. Demond Norwood MD on August 03, 2017 at 13:07 Board Certified Radiologist. This report was verified electronically.
[2017-08-03] MEDS ORDERED: ROBA750T PO (13:57)
[2017-08-03 14:00] VITALS: BP 112/62
--- NOTE | 2017-08-04 13:04 | EKG ---
Date Performed: 08/03/2017 Time Performed: 10:55:56 PTAGE: 62 years EKG: Sinus rhythm NORMAL ECG Compared to PREVIOUS TRACING , T-wave changes inferiorly have improved. PREVIOUS TRACIN07/24/2017 13.27 DOCTOR: Sumit Hankins Interpretating Date/Time 08/04/2017 13:03:08
== END 2017-08-03 14:21 | disposition home or self-care (01) ==
LOC: NEPE 10:32
DX: S56.912A Strain of unspecified muscles, fascia and tendons at forearm level, left arm, initial encounter (principal); M79.7 Fibromyalgia; F41.9 Anxiety disorder, unspecified; F32.9 Major depressive disorder, single episode, unspecified; Z79.82 Long term (current) use of aspirin; Z79.899 Other long term (current) drug therapy; X58.XXXA Exposure to other specified factors, initial encounter
CPT/HCPCS: 73090; 80048; 82550; 84484; 85025; 85610; 85730; 93005; 93971; 96374; 96375; 99285; J2270; J2405

== ENCOUNTER 2017-08-21 14:10 | Emergency (ER) | payer BC ==
[~2017-08-21] VITALS: Ht 149.9 cm; Wt 73.6 kg
[~2017-08-21 14:10] MED LIST changes: +ROBA750T PO
[2017-08-21 14:11] VITALS: BP 110/65; PULSE 77; RESP 16; TEMP 98.6; O2SAT 98
[2017-08-21 14:59] LABS: AUTOMATED NEUTROPHIL # 4.5 TH/MM3 (1.8-7.7); BASOPHIL # 0.1 TH/MM3 (0-0.2); BASOPHIL % 1.1 % (0.0-2.0); EOSINOPHIL # 0.2 TH/MM3 (0-0.4); EOSINOPHIL % 2.7 % (0.0-4.0); HEMATOCRIT 36.3 % (35.0-46.0); HEMO FLAGS DIFF FINAL; LYMPH % 37.7 % (9.0-44.0); LYMPHOCYTE # 3.3 TH/MM3 (1.0-4.8); MEAN CELL VOLUME 90.1 FL (80.0-100.0); MEAN CORPUSCULAR HEMOGLOBIN 30.7 PG (27.0-34.0); MEAN CORPUSCULAR HGB CONC 34.1 % (32.0-36.0); MONO % 6.3 % (0.0-8.0); NEUT % 52.2 % (16.0-70.0); PLATELET COUNT 265 TH/MM3 (150-450); RED BLOOD COUNT 4.03 MIL/MM3 (4.00-5.30); RED CELL DISTRIBUTION WIDTH 13.2 % (11.6-17.2); WHITE BLOOD COUNT 8.7 TH/MM3 (4.0-11.0)
[2017-08-21 15:14] LABS: APTT (PATIENT) 28.4 SEC (24.3-30.1); INTERNATIONAL NORMALIZED RATIO 0.9 RATIO
[2017-08-21 15:20] LABS: BICARBONATE 23.4 MEQ/L (21.0-32.0); BLOOD UREA NITROGEN 23 MG/DL (7-18); GLOMERULAR FILTRATION RATE 43 ML/MIN (>89); MAGNESIUM 2.6 MG/DL (1.5-2.5)
--- NOTE | 2017-08-21 16:10 | RADRPT ---
EXAM DATE/TIME: 08/21/2017 15:11 [facility] COMPARISON: No previous studies available for comparison. INDICATIONS : Upper back pain and nausea since 0100 today. MEDICAL HISTORY : Myocardial infarction. Cardiovascular disease. SURGICAL HISTORY : Hysterectomy. Appendectomy. Breast reduction. Cesearan section. ENCOUNTER: Initial ACUITY: 1 day PAIN SCORE: 7/10 LOCATION: Upper back. FINDINGS: PA and lateral views of the chest demonstrate the lungs to be symmetrically aerated without evidence of mass, infiltrate or effusion. The cardiomediastinal contours are unremarkable. Osseous structure s are intact. CONCLUSION: No acute disease. Johnnie Hutchinson Jr., MD on August 21, 2017 at 16:08 Board Certified Radiologist. This report was verified electronically.
[2017-08-21 16:14] VITALS: BP 116/59; PULSE 67; RESP 15; TEMP 98.5; O2SAT 98
[2017-08-21 16:19] LABS: ANION GAP 10 MEQ/L (5-15); CHLORIDE 105 MEQ/L (98-107); POTASSIUM 4.5 MEQ/L (3.5-5.1); SODIUM (NA) 138 MEQ/L (136-145)
[2017-08-21 16:23] LABS: CREATINE KINASE 83 U/L (26-192)
[2017-08-21] MEDS ORDERED: SODIUM CHLORID 0.9% 500 ML INJ 500 ML IV ONE (16:30)
[2017-08-21] MEDS ORDERED: IBUP200T PO (16:37)
--- NOTE | 2017-08-21 16:37 | PD ---
HPI Chief Complaint: Chest Pain Time Seen by Provider: 16:20 Travel History International Travel<30 days: No Contact w/Intl Traveler<30days: No Traveled to known affect area: No History of Present Illness HPI 62 yo female with chief complaint of chest pain. She states that this pain began around 0100 this morning. The pain is similar in nature to her previous UT for which she received a stent about 1 month ago. She had associated nausea, and vomiting. The pain radiated to her back and was described as 8 out of 10. She Had no associated shortness of breath. She has not traveled any long distances recently. Has no history of gallbladder or pancreatic disease. PFSH Past Medical History Hx Anticoagulant Therapy: Yes (81 ASA) Asthma: No Anxiety: Yes Depression: Yes Cardiac Catheterization: Yes Cardiovascular Problems: Yes High Cholesterol: No Congestive Heart Failure: No COPD: No Diabetes: No Diminished Hearing: No Fibromyalgia: Yes Musculoskeletal: No Neurologic: No Sleep Apnea: No Thyroid Disease: No Past Surgical History Appendectomy: Yes Section: Yes Coronary Stent: Yes (07/22/2017) Hysterectomy: Yes Other Surgery: Yes (BREAST REDUCTION , csection, hysterectomy) Social History Alcohol Use: No Tobacco Use: No Substance Use: No (HX OF) Allergies-Medications (Allergen,Severity, Reaction): Coded Allergies: No Known Allergies (Verified , 07/24/17) Reported Meds & Prescriptions Reported Meds & Active Scripts Active Zofran (Ondansetron HCl) 4 Mg Tab 4 Mg PO Q8HR PRN Robaxin (Methocarbamol) 750 Mg Tab 750 Mg PO QID Isosorbide Mononitrate 10 Mg Tab 10 Mg PO BID Take 2 doses 7 hours apart. Aspirin Low Strength (Aspirin) 81 Mg Chew 81 Mg PO DAILY Lisinopril 5 Mg Tab 5 Mg PO DAILY Lipitor (Atorvastatin Calcium) 10 Mg Tab 10 Mg PO HS Effient (Prasugrel) 10 Mg Tab 10 Mg PO DAILY Reported Ibuprofen Pm (Ibuprofen-Diphenhydramine) 200-38 Mg Tab 1 Tab PO HS PRN Metoprolol Tartrate 50 Mg Tab 50 Mg PO BID Trazodone (Trazodone HCl) 100 Mg Tablet 100 Mg PO HS Remeron (Mirtazapine) 15 Mg Tab 15 Mg PO HS Gabapentin 800 Mg Tab 800 Mg PO QID Review of Systems Except as stated in HPI: all other systems reviewed are Neg General / Constitutional: No: Fever, Chills HENT: No: Headaches, Neck Pain Cardiovascular: Positive: Chest Pain or Discomfort, No: Dyspnea on exertion Gastrointestinal: Positive: Nausea, Vomiting, Abdominal Pain Genitourinary: No: Frequency, Dysuria Musculoskeletal: Positive: Pain (back middle), No: Weakness, Edema Neurologic: No: Weakness, Headache Physical Exam Narrative GENERAL: patient is laying in bed comfortably, no acute distress SKIN: Warm and dry. HEAD: Atraumatic. Normocephalic. EYES: Pupils equal and round. No scleral icterus. No injection or drainage. ENT: No nasal bleeding or discharge. Mucous membranes pink and moist. NECK: Trachea midline. No JVD. no bruits CARDIOVASCULAR: Regular rate and rhythm. with I/ systolic murmur RESPIRATORY: No accessory muscle use. Clear to auscultation. Breath sounds equal bilaterally. GASTROINTESTINAL: Abdomen soft, minimally-tender to palpation in the epigastric region, nondistended. Hepatic and splenic margins not palpable. MUSCULOSKELETAL: Extremities without clubbing, cyanosis, or edema. No obvious deformities. NEUROLOGICAL: Awake and alert. No obvious cranial nerve deficits. Motor grossly within normal limits. Five out of 5 muscle strength in the arms and legs. Normal speech. PSYCHIATRIC: Appropriate mood and affect; insight and judgment normal. Data Data Last Documented VS Vital Signs Date Time Temp Pulse Resp B/P (MAP) Pulse Ox O2 Delivery O2 Flow Rate FiO2 08/21/17 16:14 98.5 67 15 116/59 (78) 98 Room Air Orders Orders Electrocardiogram (08/21/17 14:24) Basic Metabolic Panel (Bmp) (08/21/17 14:24) Ckmb (Isoenzyme) Profile (08/21/17 14:24) Complete Blood Count With Diff (08/21/17 14:24) Magnesium (Mg) (08/21/17 14:24) Prothrombin Time / Inr (Pt) (08/21/17 14:24) Act Partial Throm Time (Ptt) (08/21/17 14:24) Troponin I (08/21/17 14:24) Lipase (08/21/17 14:24) Chest, Pa & Lat (08/21/17 14:24) Sodium Chlorid 0.9% 500 Ml Inj (Ns 500 M (08/21/17 16:30) Ondansetron Odt (Zofran Odt) (08/21/17 17:15) Urinalysis - C+S If Indicated (08/21/17 17:02) Troponin I (08/21/17 17:26) Ckmb (Isoenzyme) Profile (08/21/17 17:26) Ketorolac Inj (Toradol Inj) (08/21/17 17:30) Lipase (08/21/17 17:55) Labs Laboratory Tests Test 08/21/17 14:48 08/21/17 17:55 White Blood Count 8.7 TH/MM3 Red Blood Count 4.03 MIL/MM3 Hemoglobin 12.4 GM/DL Hematocrit 36.3 % Mean Corpuscular Volume 90.1 FL Mean Corpuscular Hemoglobin 30.7 PG Mean Corpuscular Hemoglobin Concent 34.1 % Red Cell Distribution Width 13.2 % Platelet Count 265 TH/MM3 Mean Platelet Volume 8.0 FL Neutrophils (%) (Auto) 52.2 % Lymphocytes (%) (Auto) 37.7 % Monocytes (%) (Auto) 6.3 % Eosinophils (%) (Auto) 2.7 % Basophils (%) (Auto) 1.1 % Neutrophils # (Auto) 4.5 TH/MM3 Lymphocytes # (Auto) 3.3 TH/MM3 Monocytes # (Auto) 0.5 TH/MM3 Eosinophils # (Auto) 0.2 TH/MM3 Basophils # (Auto) 0.1 TH/MM3 CBC Comment DIFF FINAL Differential Comment Prothrombin Time 10.0 SEC Prothromb Time International Ratio 0.9 RATIO Activated Partial Thromboplast Time 28.4 SEC Blood Urea Nitrogen 23 MG/DL Creatinine 1.26 MG/DL Random Glucose 127 MG/DL Calcium Level 9.1 MG/DL Magnesium Level 2.6 MG/DL Sodium Level 138 MEQ/L Potassium Level 4.5 MEQ/L Chloride Level 105 MEQ/L Carbon Dioxide Level 23.4 MEQ/L Anion Gap 10 MEQ/L Estimat Glomerular Filtration Rate 43 ML/MIN Total Creatine Kinase 83 U/L 79 U/L Troponin I LESS THAN 0.02 NG/ML LESS THAN 0.02 NG/ML Lipase 162 U/L 143 U/L MDM Medical Decision Making Medical Screen Exam Complete: Yes Emergency Medical Condition: Yes Differential Diagnosis ACS, Angina, Pancreatitis,unlikely, Costochondritis, Anxiety Narrative Course CBC, CMP, Troponin I, CKMB, Lipase, Coags, EKG, CXR, have been ordered. 62-year -old female presents with complaints of chest discomfort with radiation to her back with associated nausea vomiting. The patient had a stent placed 1 month ago. She was concerned that she may have missed a medication and thought that this may be cardiac related. EKG showed no evidence of acute ST elevation. First set of troponin and CK were negative. We ordered a second set 3 hours after the first and they were also negative for acute process. We offered the patient admission to the chest pain center however she stated she was comfortable going home with 2 normal EKGs and cardiac enzymes. My gut feeling is this is not cardiac related. She'll be discharged with a prescription for Zofran. Diagnosis Primary Impression: Atypical chest pain Additional Impression: Nausea & vomiting Additional Instructions: Follow up with your primary care physician with in the few days. Med/Other Pt SpecificInfo: Prescription(s) given Scripts Ondansetron (Zofran) 4 Mg Tab 4 MG PO Q8HR Y for NAUSEA OR VOMITING, #10 TAB 0 Refills Prov: Adán Galicia MD 08/21/17 Disposition: DISCHARGE HOME Condition: Stable Adán Galicia MD Aug 21, 2017 16:37
[2017-08-21] MEDS ORDERED: ONDANSETRON ODT 4 MG TAB PO PRN (17:15)
[2017-08-21] MEDS ORDERED: KETOROLAC TROMETHAMINE 30 MG/ML (IVP) VIAL IV PUSH ONE (17:30)
[2017-08-21 18:26] LABS: CREATINE KINASE 79 U/L (26-192)
[2017-08-21] MEDS ORDERED: ZOFR4TAB PO (18:45)
--- NOTE | 2017-08-22 16:05 | EKG ---
Date Performed: 08/21/2017 Time Performed: 16:14:39 PTAGE: 62 years EKG: Sinus rhythm NORMAL ECG Since PREVIOUS TRACING , no significant change noted PREVIOUS TRACIN08/03/2017 10.55 DOCTOR: Richy Edwards Interpretating Date/Time 08/22/2017 16:04:59
== END 2017-08-21 19:27 | disposition home or self-care (01) ==
LOC: NEPC 14:10
DX: R07.89 Other chest pain (principal); R11.2 Nausea with vomiting, unspecified; F41.9 Anxiety disorder, unspecified; F32.9 Major depressive disorder, single episode, unspecified; M79.7 Fibromyalgia; Z79.82 Long term (current) use of aspirin; Z79.899 Other long term (current) drug therapy
CPT/HCPCS: 71020; 80048; 82550; 83690; 83735; 84484; 85025; 85610; 85730; 93005; 96374; 99285; J1885; J7040

== ENCOUNTER 2017-09-05 20:08 | Emergency (ER) | payer BC ==
[~2017-09-05 20:08] MED LIST changes: +IBUP200T PO; +ZOFR4TAB PO
[2017-09-05 20:12] VITALS: BP 151/81; PULSE 82; RESP 15; TEMP 97.8; O2SAT 99
[2017-09-05] MEDS ORDERED: SODIUM CHLORIDE 0.9% FLUSH 10 ML FLUSH IVF PRN (20:45)
--- NOTE | 2017-09-05 20:57 | PD ---
HPI Chief Complaint: Numbness/Tingling Time Seen by Provider: 20:20 Travel History International Travel<30 days: No Contact w/Intl Traveler<30days: No Traveled to known affect area: No History of Present Illness HPI Patient is a 62-year-old female with history of coronary artery disease, fibromyalgia, presents to emergency room with complaints of numbness to her face. Patient reports that her lower lip has been numb for over 2 years, reports that she never told her primary care doctor about it. Patient reports that since 5pm tonight, her lower face has been feeling numb bilaterally. Reports no other neurological deficits, denies any weakness. Denies any new medications. Denies ingestion of any new foods. Reports that she did become anxious as numbness has been persistent since 5pm tonight. PFSH Past Medical History Hx Anticoagulant Therapy: Yes (81 ASA) Asthma: No Anxiety: Yes Depression: Yes Cardiac Catheterization: Yes Cardiovascular Problems: Yes High Cholesterol: Yes Chest Pain: Yes Congestive Heart Failure: No COPD: No Diabetes: No Diminished Hearing: No Fibromyalgia: Yes Hypertension: Yes Musculoskeletal: No Neurologic: No Sleep Apnea: No Thyroid Disease: No Past Surgical History Appendectomy: Yes Section: Yes Coronary Stent: Yes (07/22/2017) Hysterectomy: Yes Other Surgery: Yes (BREAST REDUCTION , csection, hysterectomy) Social History Alcohol Use: No Tobacco Use: No Substance Use: No (HX OF) Allergies-Medications (Allergen,Severity, Reaction): Coded Allergies: No Known Allergies (Verified , 07/24/17) Reported Meds & Prescriptions Reported Meds & Active Scripts Active Zofran (Ondansetron HCl) 4 Mg Tab 4 Mg PO Q8HR PRN Robaxin (Methocarbamol) 750 Mg Tab 750 Mg PO QID Isosorbide Mononitrate 10 Mg Tab 10 Mg PO BID Take 2 doses 7 hours apart. Aspirin Low Strength (Aspirin) 81 Mg Chew 81 Mg PO DAILY Lisinopril 5 Mg Tab 5 Mg PO DAILY Lipitor (Atorvastatin Calcium) 10 Mg Tab 10 Mg PO HS Effient (Prasugrel) 10 Mg Tab 10 Mg PO DAILY Reported Ibuprofen Pm (Ibuprofen-Diphenhydramine) 200-38 Mg Tab 1 Tab PO HS PRN Metoprolol Tartrate 50 Mg Tab 50 Mg PO BID Trazodone (Trazodone HCl) 100 Mg Tablet 100 Mg PO HS Remeron (Mirtazapine) 15 Mg Tab 15 Mg PO HS Gabapentin 800 Mg Tab 800 Mg PO QID Review of Systems General / Constitutional: No: Fever Eyes: No: Visual changes HENT: No: Headaches, Vertigo, Sore Throat, Rhinitis, Rhinorrhea Cardiovascular: No: Chest Pain or Discomfort Respiratory: No: Shortness of Breath Gastrointestinal: No: Abdominal Pain Genitourinary: No: Dysuria Musculoskeletal: No: Pain Skin: No Rash Neurologic: Positive: Paresthesia, No: Weakness, Dizziness, Syncope, Focal Abnormalities, Coordination Problem, Tremor, Ataxia, Headache, Change in Mentation, Slurred Speech, Incontinence, Seizures, Sensory Disturbance Psychiatric: No: Depression Endocrine: No: Polydipsia Hematologic/Lymphatic: No: Easy Bruising Physical Exam Narrative GENERAL: Mild distress SKIN: Focused skin assessment warm/dry. HEAD: Atraumatic. Normocephalic. EYES: Pupils equal and round. No scleral icterus. No injection or drainage. ENT: No nasal bleeding or discharge. Mucous membranes pink and moist. NECK: Trachea midline. No JVD. CARDIOVASCULAR: Regular rate and rhythm. No murmur appreciated. RESPIRATORY: No accessory muscle use. Clear to auscultation. Breath sounds equal bilaterally. GASTROINTESTINAL: Abdomen soft, non-tender, nondistended. Hepatic and splenic margins not palpable. MUSCULOSKELETAL: No obvious deformities. No clubbing. No cyanosis. No edema. NEUROLOGICAL: Awake and alert. No obvious cranial nerve deficits. Motor grossly within normal limits. Normal speech. Patient with paraesthesia's to lower face, CN 2-12 with no neurovascular compromise PSYCHIATRIC: Appropriate mood and affect; insight and judgment normal. Data Data Last Documented VS Vital Signs Date Time Temp Pulse Resp B/P (MAP) Pulse Ox O2 Delivery O2 Flow Rate FiO2 09/05/17 20:12 97.8 82 15 151/81 (104) 99 Room Air Orders Orders Prothrombin Time / Inr (Pt) (09/05/17 20:37) Act Partial Throm Time (Ptt) (09/05/17 20:37) Complete Blood Count With Diff (09/05/17 20:37) Basic Metabolic Panel (Bmp) (09/05/17 20:37) Ct Brain W/O Iv Contrast(Rout) (09/05/17 20:37) Iv Access Insert/Monitor (09/05/17 20:37) Sodium Chloride 0.9% Flush (Ns Flush) (09/05/17 20:45) MDM Medical Decision Making Medical Screen Exam Complete: Yes Emergency Medical Condition: Yes Medical Record Reviewed: Yes Interpretation(s) Vital Signs Date Time Temp Pulse Resp B/P (MAP) Pulse Ox O2 Delivery O2 Flow Rate FiO2 09/05/17 20:12 97.8 82 15 151/81 (104) 99 Room Air Differential Diagnosis electrolyte abnormality, CVA, anxiety reaction Narrative Course During the course of the patients emergency department visit, the patients history, examination, and differential diagnosis were reviewed with the patient. The patient was placed on a cardiac cath rn with oximetry and frequent blood pressure monitoring. The patient had an IV access obtained and blood work sent for analysis. The patient was initially provided IVF and IV ativan The patients laboratory studies were reviewed and remarkable for [-]. Radiology studies were reviewed and remarkable for [-] Faye Hampton DO Sep 05, 2017 20:57
[2017-09-05] MEDS ORDERED: SODIUM CHLOR 0.9% 1000 ML INJ 1,000 ML IV ONE (21:00)
--- NOTE | 2017-09-05 21:11 | RADRPT ---
EXAM DATE/TIME: 09/05/2017 20:48 [facility] COMPARISON: No previous studies available for comparison. INDICATIONS : Dizziness and facial numbness. RADIATION DOSE: 30.41 CTDIvol (mGy) MEDICAL HISTORY : Non-responsive. SURGICAL HISTORY : None. ENCOUNTER: Initial ACUITY: 1 day PAIN SCALE: 0/10 LOCATION: cranial TECHNIQUE: Multiple contiguous axial images were obtained of the head. Using automated exposure control and adj ustment of the mA and/or kV according to patient size, radiation dose was kept as low as reasonably a chievable to obtain optimal diagnostic quality images. DICOM format image data is available electro nically for review and comparison. FINDINGS: CEREBRUM: The ventricles are normal for age. No evidence of midline shift, mass lesion, hemorrhage or acute in farction. No extra-axial fluid collections are seen. POSTERIOR FOSSA: The cerebellum and brainstem are intact. The 4th ventricle is midline. The cerebellopontine angle i s unremarkable. EXTRACRANIAL: The visualized portion of the orbits is intact. SKULL: The calvaria is intact. No evidence of skull fracture. CONCLUSION: 1. No acute intracranial abnormalities. Blayne Watts MD on September 05, 2017 at 21:07 Board Certified Radiologist. This report was verified electronically.
[2017-09-05 21:22] LABS: AUTOMATED NEUTROPHIL # 4.4 TH/MM3 (1.8-7.7); BASOPHIL % 0.2 % (0.0-2.0); EOSINOPHIL # 0.2 TH/MM3 (0-0.4); EOSINOPHIL % 2.2 % (0.0-4.0); HEMATOCRIT 34.4 % (35.0-46.0); HEMOGLOBIN 11.7 GM/DL (11.6-15.3); LYMPH % 44.5 % (9.0-44.0); LYMPHOCYTE # 4.2 TH/MM3 (1.0-4.8); MEAN CELL VOLUME 89.7 FL (80.0-100.0); MEAN CORPUSCULAR HEMOGLOBIN 30.4 PG (27.0-34.0); MEAN CORPUSCULAR HGB CONC 33.9 % (32.0-36.0); MEAN PLATELET VOLUME 7.3 FL (7.0-11.0); MONO % 6.1 % (0.0-8.0); MONOCYTE # 0.6 TH/MM3 (0-0.9); PLATELET COUNT 305 TH/MM3 (150-450); RED BLOOD COUNT 3.84 MIL/MM3 (4.00-5.30); RED CELL DISTRIBUTION WIDTH 13.1 % (11.6-17.2); WHITE BLOOD COUNT 9.3 TH/MM3 (4.0-11.0)
[2017-09-05 21:31] LABS: PROTHROMBIN TIME - PATIENT 9.7 SEC (9.8-11.6)
[2017-09-05 21:53] LABS: BICARBONATE 24.8 MEQ/L (21.0-32.0); CALCIUM 8.7 MG/DL (8.5-10.1); CREATININE 1.14 MG/DL (0.50-1.00)
[2017-09-05] MEDS ORDERED: MIDAZOLAM HCL 2 MG/2 ML VIAL IV PUSH ONE (22:15)
[2017-09-05 23:30] VITALS: BP 152/83; PULSE 77; RESP 16; O2SAT 98
--- NOTE | 2017-09-05 23:37 | PD ---
Physical Exam Narrative GENERAL: SKIN: Warm and dry. HEAD: Atraumatic. Normocephalic. EYES: Pupils equal and round. No scleral icterus. No injection or drainage. ENT: No nasal bleeding or discharge. Mucous membranes pink and moist. NECK: Trachea midline. No JVD. CARDIOVASCULAR: Regular rate and rhythm. RESPIRATORY: No accessory muscle use. Clear to auscultation. Breath sounds equal bilaterally. GASTROINTESTINAL: Abdomen soft, non-tender, nondistended. MUSCULOSKELETAL: Extremities without clubbing, cyanosis, or edema. No obvious deformities. NEUROLOGICAL: Awake and alert. No obvious cranial nerve deficits. Motor grossly within normal limits. Five out of 5 muscle strength in the arms and legs. Normal speech.... patient appears to be able to feel sharp on lower lip so unsure if patient truly had paresthesia crossing midline, no paralysis, no drooling. PSYCHIATRIC: Appropriate mood and affect; insight and judgment normal. Data Data Last Documented VS Vital Signs Date Time Temp Pulse Resp B/P (MAP) Pulse Ox O2 Delivery O2 Flow Rate FiO2 09/05/17 20:12 97.8 82 15 151/81 (104) 99 Room Air Orders Orders Prothrombin Time / Inr (Pt) (09/05/17 20:37) Act Partial Throm Time (Ptt) (09/05/17 20:37) Complete Blood Count With Diff (09/05/17 20:37) Basic Metabolic Panel (Bmp) (09/05/17 20:37) Ct Brain W/O Iv Contrast(Rout) (09/05/17 20:37) Iv Access Insert/Monitor (09/05/17 20:37) Sodium Chloride 0.9% Flush (Ns Flush) (09/05/17 20:45) Sodium Chlor 0.9% 1000 Ml Inj (Ns 1000 M (09/05/17 21:00) Mri Brain W/O Contrast (09/05/17 ) Midazolam Inj (Versed Inj) (09/05/17 22:15) Labs Laboratory Tests Test 09/05/17 21:05 White Blood Count 9.3 TH/MM3 Red Blood Count 3.84 MIL/MM3 Hemoglobin 11.7 GM/DL Hematocrit 34.4 % Mean Corpuscular Volume 89.7 FL Mean Corpuscular Hemoglobin 30.4 PG Mean Corpuscular Hemoglobin Concent 33.9 % Red Cell Distribution Width 13.1 % Platelet Count 305 TH/MM3 Mean Platelet Volume 7.3 FL Neutrophils (%) (Auto) 47.0 % Lymphocytes (%) (Auto) 44.5 % Monocytes (%) (Auto) 6.1 % Eosinophils (%) (Auto) 2.2 % Basophils (%) (Auto) 0.2 % Neutrophils # (Auto) 4.4 TH/MM3 Lymphocytes # (Auto) 4.2 TH/MM3 Monocytes # (Auto) 0.6 TH/MM3 Eosinophils # (Auto) 0.2 TH/MM3 Basophils # (Auto) 0.0 TH/MM3 CBC Comment DIFF FINAL Differential Comment Prothrombin Time 9.7 SEC Prothromb Time International Ratio 1.0 RATIO Activated Partial Thromboplast Time 28.0 SEC Blood Urea Nitrogen 15 MG/DL Creatinine 1.14 MG/DL Random Glucose 92 MG/DL Calcium Level 8.7 MG/DL Sodium Level 139 MEQ/L Potassium Level 4.5 MEQ/L Chloride Level 108 MEQ/L Carbon Dioxide Level 24.8 MEQ/L Anion Gap 6 MEQ/L Estimat Glomerular Filtration Rate 48 ML/MIN [facility] Medical Record Reviewed: Yes Supervised Visit with AMELIA: No Narrative Course received sign out from dr koo, pending mri. thus far cbc/cmp/ wnl, ct head wnl. MRI did not revealed any aneurysm, or plaques, or mass or ischemia... Diagnosis Primary Impression: Paresthesia Referrals: Amilcar Dan MD for further evaluation of your symptoms Patient Instructions: General Instructions, Paresthesia (ED) Disposition: 01 DISCHARGE HOME Condition: Stable Vaibhav Ray MD Sep 05, 2017 23:37
--- NOTE | 2017-09-05 23:53 | RADRPT ---
EXAM DATE/TIME: 09/05/2017 23:01 [facility] COMPARISON: No previous studies available for comparison. INDICATIONS : CVA. Facial numbness. MEDICAL HISTORY : Myocardial infarction. SURGICAL HISTORY : Appendectomy. Hysterectomy. section. Cardiac stents. Breast reduction. ENCOUNTER: Subsequent ACUITY: 1 day PAIN SCORE: 3/10 LOCATION: cranial TECHNIQUE: Multiplanar, multisequence MRI of the brain was performed without contrast. FINDINGS: CEREBRUM: The ventricles are normal for age. No evidence of midline shift, mass lesion, hemorrhage or acute in farction. No extraaxial fluid collections are seen. The pituitary gland and suprasellar cistern are normal in configuration. WHITE MATTER: No significant signal abnormalities are seen in the white matter. POSTERIOR FOSSA: The cerebellum and brainstem are intact. The 4th ventricle is midline. The cerebellopontine angle is unremarkable. The cerebellar tonsils are normal in position. DIFFUSION IMAGING: No focal areas of restricted diffusion are seen. No evidence of acute infarction. EXTRACRANIAL: The visualized portions of the orbits and paranasal sinuses are unremarkable. CONCLUSION: Brain MRI within normal limits. Willie Galvez MD on September 05, 2017 at 23:47 Board Certified Radiologist. This report was verified electronically.
== END 2017-09-06 00:30 | disposition home or self-care (01) ==
LOC: NEPD 20:08
DX: R20.2 Paresthesia of skin (principal); E78.00 Pure hypercholesterolemia, unspecified; I10 Essential (primary) hypertension; I25.10 Atherosclerotic heart disease of native coronary artery without angina pectoris; M79.7 Fibromyalgia
CPT/HCPCS: 70450; 70551; 80048; 85025; 85610; 85730; 96361; 96374; 99285; J2250; J7030

== ENCOUNTER 2017-11-13 10:03 | Emergency (ER) | payer BC ==
[~2017-11-13] VITALS: Ht 149.9 cm; Wt 70.0 kg
[2017-11-13 10:06] VITALS: BP 130/68; PULSE 63; RESP 14; TEMP 98.6; O2SAT 96
[2017-11-13] MEDS ORDERED: RESP: LIDOCAINE HCL 2% 2 ML NEB NEB ONE (11:30)
[2017-11-13] MEDS ORDERED: RESP: ALBUTEROL 2.5 MG/IPRATROPIUM 0.5 MG NEB (SCH) INH ONE (11:30)
--- NOTE | 2017-11-13 11:30 | PD ---
HPI Chief Complaint: Cold / Flu Symptoms Time Seen by Provider: 11:21 Travel History International Travel<30 days: No Contact w/Intl Traveler<30days: No Traveled to known affect area: No History of Present Illness HPI 62-year-old female to history of coronary artery disease, migraines, presents for evaluation of a cough. She has had an intermittent cough for the past 2 months, worse over the past week which prompted evaluation. The cough is primarily dry but occasionally productive with yellow phlegm. She tried using [id number] DayQuil. She is currently taking a Medrol Dosepak per prescribed by her physician for migraines. Symptoms persist which prompted evaluation. Denies fevers, chills, dyspnea. She reports some chest wall pain when she is coughing forcefully. denies sore throat, rash, recent travel. No history of asthma or COPD. She has no other complaints at this time. PFSH Past Medical History Hx Anticoagulant Therapy: Yes (81 ASA) Asthma: No Anxiety: Yes Depression: Yes Cardiac Catheterization: Yes Cardiovascular Problems: Yes High Cholesterol: Yes Chest Pain: Yes Congestive Heart Failure: No COPD: No Diabetes: No Diminished Hearing: No Fibromyalgia: Yes Hypertension: Yes Musculoskeletal: No Neurologic: No Sleep Apnea: No Thyroid Disease: No Past Surgical History Appendectomy: Yes Section: Yes Coronary Stent: Yes (07/22/2017) Hysterectomy: Yes Other Surgery: Yes (BREAST REDUCTION , csection, hysterectomy) Social History Alcohol Use: No Tobacco Use: No Substance Use: No (HX OF) Allergies-Medications (Allergen,Severity, Reaction): Coded Allergies: No Known Allergies (Verified , 11/13/17) Reported Meds & Prescriptions Reported Meds & Active Scripts Active Tessalon Perles (Benzonatate) 100 Mg Cap 100 Mg PO TID PRN Azithromycin 250 Mg Tab 250 Mg PO DIRECTED Take 2 tabs (500 mg) on day 1 then 1 tab daily x 4 days. Zofran (Ondansetron HCl) 4 Mg Tab 4 Mg PO Q8HR PRN Robaxin (Methocarbamol) 750 Mg Tab 750 Mg PO QID Isosorbide Mononitrate 10 Mg Tab 10 Mg PO BID Take 2 doses 7 hours apart. Aspirin Low Strength (Aspirin) 81 Mg Chew 81 Mg PO DAILY Lisinopril 5 Mg Tab 5 Mg PO DAILY Lipitor (Atorvastatin Calcium) 10 Mg Tab 10 Mg PO HS Effient (Prasugrel) 10 Mg Tab 10 Mg PO DAILY Reported Ibuprofen Pm (Ibuprofen-Diphenhydramine) 200-38 Mg Tab 1 Tab PO HS PRN Metoprolol Tartrate 50 Mg Tab 50 Mg PO BID Trazodone (Trazodone HCl) 100 Mg Tablet 100 Mg PO HS Remeron (Mirtazapine) 15 Mg Tab 15 Mg PO HS Gabapentin 800 Mg Tab 800 Mg PO QID Review of Systems Except as stated in HPI: all other systems reviewed are Neg Physical Exam Narrative GENERAL: Well-developed well-nourished female who is coughing quite forcefully during examination. SKIN: Warm and dry. HEAD: Atraumatic. Normocephalic. EYES: Pupils equal and round. No scleral icterus. No injection or drainage. ENT: No nasal bleeding or discharge. Mucous membranes pink and moist. NECK: Trachea midline. No JVD. CARDIOVASCULAR: Regular rate and rhythm. No murmur appreciated. RESPIRATORY: No accessory muscle use. Clear to auscultation. Breath sounds equal bilaterally. Mild coarse breath sounds bilaterally. GASTROINTESTINAL: Abdomen soft, non-tender, nondistended. Hepatic and splenic margins not palpable. MUSCULOSKELETAL: No obvious deformities. No clubbing. No cyanosis. No edema. Data Data Last Documented VS Vital Signs Date Time Temp Pulse Resp B/P (MAP) Pulse Ox O2 Delivery O2 Flow Rate FiO2 11/13/17 10:06 98.6 63 14 130/68 (88) 96 Orders Orders Electrocardiogram (11/13/17 ) Lidocaine Pf 2% Neb (Lidocaine Pf 2% Neb (11/13/17 11:30) Albuterol-Ipratropium Neb (Duoneb Neb) (11/13/17 11:30) Chest, Pa & Lat (11/13/17 ) MDM Medical Decision Making Medical Screen Exam Complete: Yes Emergency Medical Condition: Yes Medical Record Reviewed: Yes Differential Diagnosis Bronchitis, reactive airway disease, pneumonia, bronchiectasis Narrative Course Chest x-ray was obtained revealing no acute abnormalities. The patient was given nebulized lidocaine and DuoNeb treatment with significant improvement in her cough. Because of the duration of her symptoms she will be discharged with azithromycin as well as Tessalon for cough. Recommended follow-up with her primary care physician. Diagnosis Primary Impression: Bronchitis Departure Forms: Tests/Procedures, Work Release Enter return to work date: Nov 15, 2017 Additional Instructions: Medication as prescribed. Follow-up with primary care physician. Return for any emergent medical conditions. Med/Other Pt SpecificInfo: Prescription(s) given Scripts Benzonatate (Tessalon Perles) 100 Mg Cap 100 MG PO TID Y for COUGH, #30 CAP 0 Refills Prov: Kali Hernandez MD 11/13/17 Azithromycin (Azithromycin) 250 Mg Tab 250 MG PO DIRECTED for Infection, #6 TAB 0 Refills Take 2 tabs (500 mg) on day 1 then 1 tab daily x 4 days. Prov: Kali Hernandez MD 11/13/17 Disposition: 01 DISCHARGE HOME Condition: Stable Mervin Hilton Nov 13, 2017 11:30
--- NOTE | 2017-11-13 11:49 | RADRPT ---
EXAM DATE/TIME: 11/13/2017 11:44 [facility] COMPARISON: CHEST PA & LAT, August 21, 2017, 15:11. INDICATIONS : Cough. MEDICAL HISTORY : Heart attack. Pneumonia. SURGICAL HISTORY : None. ENCOUNTER: Initial ACUITY: 2 months PAIN SCORE: 6/10 LOCATION: Bilateral upper chest FINDINGS: PA and lateral views of the chest demonstrate the lungs to be symmetrically aerated without evidence of mass, infiltrate or effusion. The cardiomediastinal contours are unremarkable. Osseous structure s are intact. CONCLUSION: No acute cardiopulmonary disease. Johnnie Ray MD on November 13, 2017 at 11:47 Board Certified Radiologist. This report was verified electronically.
[2017-11-13] MEDS ORDERED: AZIT250T3 PO (12:52)
[2017-11-13] MEDS ORDERED: BENZ100 PO (12:52)
--- NOTE | 2017-11-13 14:57 | EKG ---
Date Performed: 11/13/2017 Time Performed: 11:03:14 PTAGE: 62 years EKG: SINUS BRADYCARDIA BORDERLINE ECG PREVIOUS TRACING : 08/21/2017 16.14 DOCTOR: Oseas Ramesh Interpretating Date/Time 11/13/2017 14:56:48
== END 2017-11-13 13:03 | disposition home or self-care (01) ==
LOC: NEPK 10:03
DX: J40 Bronchitis, not specified as acute or chronic (principal); R07.89 Other chest pain; I10 Essential (primary) hypertension; R94.31 Abnormal electrocardiogram [ECG] [EKG]; G43.909 Migraine, unspecified, not intractable, without status migrainosus; Z79.01 Long term (current) use of anticoagulants
CPT/HCPCS: 71046; 93005; 94664; 99284

== ENCOUNTER 2017-11-29 06:47 | Observation (INO) | payer BC ==
[~2017-11-29] VITALS: Ht 149.9 cm; Wt 71.8 kg
[2017-11-29] VITALS (16 sets, daily range): BP systolic 109–161; BP diastolic 53–78; PULSE 52–81; RESP 18–20; TEMP 97.8–98.1; O2SAT 96–100
[~2017-11-29 06:47] MED LIST changes: +AZIT250T3 PO; +BENZ100 PO
--- NOTE | 2017-11-29 07:37 | PD ---
HPI Chief Complaint: Chest Pain Time Seen by Provider: 07:29 Travel History International Travel<30 days: No Contact w/Intl Traveler<30days: No Traveled to known affect area: No History of Present Illness HPI 62-year-old female states last night she developed chest tightness and back pain. She states it feels similar to her prior heart attack. She states she had a stent placed last July with Dr. Watts. She states she has not had follow up with him yet. She states that she is having no other concurrent complaints. She states that she is stressed that she just went back to her job full-time. Quality is tightness. Severity is moderate. She denies specific modifying factors. She states she took one of her blue pills at home that is like nitroglycerin but that did not help. She states she also took a baby aspirin. Duration is since last night. PFSH Past Medical History Hx Anticoagulant Therapy: Yes (81 ASA) Asthma: No Anxiety: Yes Depression: Yes Cardiac Catheterization: Yes Cardiovascular Problems: Yes High Cholesterol: Yes Chest Pain: Yes Congestive Heart Failure: No COPD: No Diabetes: No Diminished Hearing: No Fibromyalgia: Yes Hypertension: Yes Musculoskeletal: No Neurologic: No Sleep Apnea: No Thyroid Disease: No ?: Not Past Surgical History Appendectomy: Yes Section: Yes Coronary Stent: Yes (07/22/2017) Hysterectomy: Yes Other Surgery: Yes (BREAST REDUCTION , csection, hysterectomy) Social History Alcohol Use: No Tobacco Use: No Substance Use: No (HX OF) Allergies-Medications (Allergen,Severity, Reaction): Coded Allergies: No Known Allergies (Verified , 11/29/17) Reported Meds & Prescriptions Reported Meds & Active Scripts Active Isosorbide Mononitrate 10 Mg Tab 10 Mg PO BID Take 2 doses 7 hours apart. Aspirin Low Strength (Aspirin) 81 Mg Chew 81 Mg PO DAILY Lisinopril 5 Mg Tab 5 Mg PO DAILY Lipitor (Atorvastatin Calcium) 10 Mg Tab 10 Mg PO HS Effient (Prasugrel) 10 Mg Tab 10 Mg PO DAILY Reported Ibuprofen Pm (Ibuprofen-Diphenhydramine) 200-38 Mg Tab 1 Tab PO HS PRN Metoprolol Tartrate 50 Mg Tab 50 Mg PO BID Trazodone (Trazodone HCl) 100 Mg Tablet 100 Mg PO HS Remeron (Mirtazapine) 15 Mg Tab 15 Mg PO HS Gabapentin 800 Mg Tab 800 Mg PO QID Review of Systems Except as stated in HPI: all other systems reviewed are Neg Physical Exam Narrative GENERAL: 62-year-old female in no apparent distress SKIN: Focused skin assessment warm/dry. HEAD: Atraumatic. Normocephalic. EYES: Pupils equal and round. No scleral icterus. No injection or drainage. ENT: No nasal bleeding or discharge. Mucous membranes pink and moist. NECK: Trachea midline. No JVD. CARDIOVASCULAR: Regular rate and rhythm. No murmur appreciated. RESPIRATORY: No accessory muscle use. No increased effort MUSCULOSKELETAL: No obvious deformities. No clubbing. No cyanosis. No edema. NEUROLOGICAL: Awake and alert. No obvious cranial nerve deficits. Motor grossly within normal limits. Normal speech. PSYCHIATRIC: Appropriate mood and affect; insight and judgment normal. Data Data Last Documented VS Vital Signs Date Time Temp Pulse Resp B/P (MAP) Pulse Ox O2 Delivery O2 Flow Rate FiO2 11/29/17 07:59 71 18 116/61 (79) 98 Nasal Cannula 2.00 11/29/17 06:49 97.8 Orders Orders Electrocardiogram (11/29/17 ) Electrocardiogram (11/29/17 07:29) B-Type Natriuretic Peptide (11/29/17 07:29) Ckmb (Isoenzyme) Profile (11/29/17 07:29) Complete Blood Count With Diff (11/29/17 07:29) Comprehensive Metabolic Panel (11/29/17 07:29) D-Dimer (11/29/17 07:29) Magnesium (Mg) (11/29/17 07:29) Prothrombin Time / Inr (Pt) (11/29/17 07:29) Act Partial Throm Time (Ptt) (11/29/17 07:29) Troponin I (11/29/17 07:29) Lipase (11/29/17 07:29) Chest, Single Ap (11/29/17 07:29) Ecg Monitoring (11/29/17 07:29) Bilateral Bp Monitoring (11/29/17 07:29) Iv Access Insert/Monitor (11/29/17 07:29) Oximetry (11/29/17 07:29) Sodium Chloride 0.9% Flush (Ns Flush) (11/29/17 07:30) Aspirin Chew (Aspirin Chew) (11/29/17 07:45) Nitroglycerin Sl (Nitrostat Sl) (11/29/17 07:45) Morphine Inj (Morphine Inj) (11/29/17 09:00) Ondansetron Inj (Zofran Inj) (11/29/17 09:00) Admit Order (Ed Use Only) (11/29/17 09:06) Labs Laboratory Tests Test 11/29/17 07:12 White Blood Count 7.8 TH/MM3 Red Blood Count 3.81 MIL/MM3 Hemoglobin 11.6 GM/DL Hematocrit 33.0 % Mean Corpuscular Volume 86.6 FL Mean Corpuscular Hemoglobin 30.5 PG Mean Corpuscular Hemoglobin Concent 35.2 % Red Cell Distribution Width 13.3 % Platelet Count 360 TH/MM3 Mean Platelet Volume 7.2 FL Neutrophils (%) (Auto) 58.5 % Lymphocytes (%) (Auto) 31.8 % Monocytes (%) (Auto) 4.2 % Eosinophils (%) (Auto) 4.4 % Basophils (%) (Auto) 1.1 % Neutrophils # (Auto) 4.6 TH/MM3 Lymphocytes # (Auto) 2.5 TH/MM3 Monocytes # (Auto) 0.3 TH/MM3 Eosinophils # (Auto) 0.3 TH/MM3 Basophils # (Auto) 0.1 TH/MM3 CBC Comment DIFF FINAL Differential Comment Prothrombin Time 9.9 SEC Prothromb Time International Ratio 1.0 RATIO Activated Partial Thromboplast Time 26.9 SEC D-Dimer Quantitative (PE/DVT) 0.43 MG/L FEU Blood Urea Nitrogen 14 MG/DL Creatinine 1.06 MG/DL Random Glucose 151 MG/DL Total Protein 6.7 GM/DL Albumin 3.3 GM/DL Calcium Level 8.9 MG/DL Magnesium Level 2.0 MG/DL Alkaline Phosphatase 107 U/L Aspartate Amino Transf (AST/SGOT) 19 U/L Alanine Aminotransferase (ALT/SGPT) 31 U/L Total Bilirubin 0.3 MG/DL Sodium Level 142 MEQ/L Potassium Level 3.9 MEQ/L Chloride Level 110 MEQ/L Carbon Dioxide Level 22.4 MEQ/L Anion Gap 10 MEQ/L Estimat Glomerular Filtration Rate 53 ML/MIN Total Creatine Kinase 61 U/L Troponin I LESS THAN 0.02 NG/ML B-Type Natriuretic Peptide 138 PG/ML Lipase 131 U/L MDM Medical Decision Making Medical Screen Exam Complete: Yes Emergency Medical Condition: Yes Medical Record Reviewed: Yes (past history confirmed) Interpretation(s) Last 24 hours Impressions Chest X-Ray 11/29/17 0774 Signed Impressions: Service Date/Time: Wednesday, November 29, 2017 07:46 - CONCLUSION: No acute disease. No significant change has occurred. Giorgio Fernandez MD CBC & BMP Diagram 11/29/17 07:12 Total Protein 6.7, Albumin 3.3 L, Calcium Level 8.9, Magnesium Level 2.0, Alkaline Phosphatase 107, Aspartate Amino Transf (AST/SGOT) 19, Alanine Aminotransferase (ALT/SGPT) 31, Total Bilirubin 0.3 Differential Diagnosis Cardiac, gastritis, musculoskeletal, PE Narrative Course Will check blood work, chest x-ray, EKG and dose with aspirin and nitroglycerin and reevaluate ed workup no acute, will discuss with her director peoplesoft given moprhine for additional pain, will place in [facility] for observation Physician Communication Physician Communication dr nogueira states ms for [facility] Diagnosis Primary Impression: Chest pain Qualified Codes: R07.9 - Chest pain, unspecified Admitting Information Admitting Physician Requests: Observation Colleen Obrien MD Nov 29, 2017 07:37
[2017-11-29] MEDS: NITROGLYCERIN 0.4 MG SL 25 TABS/BTL SL SCH ×2 (07:41→07:50)
[2017-11-29] MEDS: SODIUM CHLORIDE 0.9% FLUSH 10 ML FLUSH IVF PRN ×2 (07:42→09:20)
[2017-11-29] MEDS ORDERED: ASPIRIN 81 MG CHEW TAB PO ONE (07:45)
--- NOTE | 2017-11-29 08:00 | RADRPT ---
EXAM DATE/TIME: 11/29/2017 07:46 [facility] COMPARISON: CHEST SINGLE AP, July 24, 2017, 13:56. INDICATIONS : Chest pain and shortness of breath for one day. MEDICAL HISTORY : Heart attack. SURGICAL HISTORY : Cardiac stents. ENCOUNTER: Initial ACUITY: 1 day PAIN SCORE: 7/10 LOCATION: Bilateral chest FINDINGS: A single view of the chest demonstrates the lungs to be symmetrically aerated without evidence of mas s, infiltrate or effusion. The cardiomediastinal contours are unremarkable. Osseous structures are intact. CONCLUSION: No acute disease. No significant change has occurred. Giorgio Fernandez MD on November 29, 2017 at 7:58 Board Certified Radiologist. This report was verified electronically.
[2017-11-29 08:10] LABS: AUTOMATED NEUTROPHIL # 4.6 TH/MM3 (1.8-7.7); BASOPHIL # 0.1 TH/MM3 (0-0.2); BASOPHIL % 1.1 % (0.0-2.0); EOSINOPHIL # 0.3 TH/MM3 (0-0.4); EOSINOPHIL % 4.4 % (0.0-4.0); HEMOGLOBIN 11.6 GM/DL (11.6-15.3); LYMPH % 31.8 % (9.0-44.0); LYMPHOCYTE # 2.5 TH/MM3 (1.0-4.8); MEAN CELL VOLUME 86.6 FL (80.0-100.0); MEAN CORPUSCULAR HEMOGLOBIN 30.5 PG (27.0-34.0); MEAN CORPUSCULAR HGB CONC 35.2 % (32.0-36.0); MEAN PLATELET VOLUME 7.2 FL (7.0-11.0); MONO % 4.2 % (0.0-8.0); MONOCYTE # 0.3 TH/MM3 (0-0.9); NEUT % 58.5 % (16.0-70.0); PLATELET COUNT 360 TH/MM3 (150-450); RED BLOOD COUNT 3.81 MIL/MM3 (4.00-5.30); RED CELL DISTRIBUTION WIDTH 13.3 % (11.6-17.2); WHITE BLOOD COUNT 7.8 TH/MM3 (4.0-11.0)
[2017-11-29 08:23] LABS: PROTHROMBIN TIME - PATIENT 9.9 SEC (9.8-11.6)
[2017-11-29 08:24] LABS: D-DIMER 0.43 MG/L FEU (0.00-0.50)
[2017-11-29 08:36] LABS: ALBUMIN 3.3 GM/DL (3.4-5.0); AST (GOT) 19 U/L (15-37); BICARBONATE 22.4 MEQ/L (21.0-32.0); BLOOD UREA NITROGEN 14 MG/DL (7-18); CALCIUM 8.9 MG/DL (8.5-10.1); CHLORIDE 110 MEQ/L (98-107); CREATININE 1.06 MG/DL (0.50-1.00); GLOMERULAR FILTRATION RATE 53 ML/MIN (>89); GLUCOSE,RANDOM 151 MG/DL (74-106); SODIUM (NA) 142 MEQ/L (136-145)
[2017-11-29 08:37] LABS: ALT (GPT) 31 U/L (10-53)
[2017-11-29 08:41] LABS: ALKALINE PHOSPHATASE 107 U/L (45-117); TOTAL BILIRUBIN ADULT 0.3 MG/DL (0.2-1.0); TOTAL PROTEIN 6.7 GM/DL (6.4-8.2); TROPONIN I LESS THAN 0.02 NG/ML (0.02-0.05)
[2017-11-29] MEDS ORDERED: ONDANSETRON HCL 4 MG/2 ML VIAL IV PUSH ONE (09:00)
[2017-11-29] MEDS ORDERED: MORPHINE SULFATE 4 MG/ML INJ IV PUSH ONE ×2 (09:00→12:15)
[2017-11-29] MEDS ORDERED: ACETAMINOPHEN 500 MG CPLT PO PRN (10:00)
[2017-11-29] MEDS ORDERED: ONDANSETRON HCL 4 MG/2 ML VIAL IV PUSH PRN (10:00)
[2017-11-29] MEDS ORDERED: NITROGLYCERIN 0.4 MG SL 25 TABS/BTL SL PRN (10:00)
--- NOTE | 2017-11-29 10:28 | HHI.HP ---
HPI Primary Care Physician Keo White III, MD Chief Complaint Chest pain History of Present Illness 62 year old female with known CAD, x1 cardiac stent placed June 2017, and fibromyalgia presents to ER for further evaluation of chest pain. Onset last evening 8pm. Location upper midchest. Characterized as pressure. Radiation to upper midback. Severity 7/10. Duration constant. Unable to sleep last night due to discomfort. Associated symptoms included dyspnea and nausea. Denies vomiting or diaphoreses. No known precipitating factors. Relieving factors morphine and Zofran given in ER, currently pain 2/10 and nausea has resolved. Endorses similar pain in the past in June, prior to requiring cardiac stent. Records indicate NSTEMI June 2017 and x1 stent to mid RCA placed. She has appointment scheduled in a couple of months with a new tech brazer tester as her previous tech brazer tester has relocated. Review of Systems General: No fatigue,weakness, fever, chills, recent illness, or change in appetite. Has been in her general state of health. HEENT: No REESE, no vision changes, no nasal congestion or drainage, no dysphasia CV: Continues to have chest pain as stated above, currently 2/10. RESP: No SOB, cough, wheeze, or recent URI. Endorses several respiratory illness in August she related to possible black mold exposure. GI: No nausea, vomiting, bowel changes, diarrhea, constipation, pain, distention , melena, blood in the stool. No change in appetite, no unintentional weight gain or weight loss : No dysuria, urgency, frequency EXT: Least evening noticed bilateral lower leg edema, no paraesthesias MS: No discomfort, injury, trauma, or change in ROM. Repositioning from laying to sitting made pain worse during movement. NEURO: No change in memory, dizziness, difficulty with balance, LOC, motor/ sensory deficits PSYCH: History of anxiety and depression SKIN: No rashes, no concerning lesions Past Family Social History Allergies: Coded Allergies: No Known Allergies (Verified , 11/29/17) Past Medical History CAD, HDL, fibromyalgia, depression, anxiety, restless leg syndrome Past Surgical History Hysterectomy, , appendectomy, pilonidal cyst removed Reported Medications Reported Meds & Active Scripts Active Isosorbide Mononitrate 10 Mg Tab 10 Mg PO BID Take 2 doses 7 hours apart. (Quit taking months ago-states she did not know she should take daily, especially after a friend told her medication was nitro) Aspirin Low Strength (Aspirin) 81 Mg Chew 81 Mg PO DAILY Lisinopril 5 Mg Tab 5 Mg PO DAILY (Has been out of for 2 weeks) Lipitor (Atorvastatin Calcium) 10 Mg Tab 10 Mg PO HS Effient (Prasugrel) 10 Mg Tab 10 Mg PO DAILY Metoprolol Tartrate 50 Mg Tab 50 Mg PO QD Trazodone (Trazodone HCl) 100 Mg Tablet 100 Mg PO HS Remeron (Mirtazapine) 15 Mg Tab 15 Mg PO HS Gabapentin 800 Mg Tab 800 Mg PO QID Active Ordered Medications Current Medications Medications (Trade) Dose Ordered Sig/Juan Route Start Time Stop Time Status Last Admin (NS Flush) 2 ml UNSCH PRN IVF 11/29/17 07:30 11/29/17 09:20 (NS Flush) 2 ml BID IV FLUSH 11/29/17 21:00 (Tylenol) 500 mg Q4H PRN PO 11/29/17 10:00 (Zofran Inj) 4 mg Q6H PRN IV PUSH 11/29/17 10:00 (Nitrostat Sl) 0.4 mg Q5M PRN SL 11/29/17 10:00 (Aspirin) 325 mg DAILY PO 11/30/17 09:00 Family History Mother OR age 55 Social History Known CAD and hyperlipidemia. No known diabetes or hypertension. Lifelong nonsmoker. Denies any alcohol or illegal drug use. Past cardiac testing 07/22/17 Cardiac catheterization (Dr. Watts) Conclusions: 1. Successful PCI to mid -RCA diagnostic for non-ST elevated OR. 2. Elevated LVEDP. 3. Preserved LV systolic function. 07/21/17 Lexiscan- Large perfusion defect inferior septal and inferior wall with partial redistribution inferior septal region. Physical Exam Vital Signs Vital Signs Date Time Temp Pulse Resp B/P (MAP) Pulse Ox O2 Delivery O2 Flow Rate FiO2 11/29/17 09:18 54 18 161/78 (105) 100 Nasal Cannula 2.00 11/29/17 08:30 81 18 161/78 (105) 100 11/29/17 07:59 71 18 116/61 (79) 98 Nasal Cannula 2.00 11/29/17 07:53 78 123/58 (79) 100 Nasal Cannula 2.00 3/9/18 07:46 72 18 115/59 (77) 99 Nasal Cannula 2.00 11/29/17 07:46 72 115/59 (77) 11/29/17 07:10 73 136/68 (90) 11/29/17 07:10 72 18 136/68 (90) 99 Nasal Cannula 2.00 11/29/17 06:49 97.8 81 18 134/67 (89) 98 Physical Exam GENERAL: Alert WN, WD, NAD, pleasant, , obese female HEAD: NC, AT EYES: Sclera clear, conjunctiva without injection ENT: Mucous membranes pink and moist, no nasal discharge or bleeding CV: Bradycardiac, regular rhythm, without murmur, rub, gallop, no JVD, S1-S2 no S3-S4. RESP: Clear lungs throughout bilateral, no crackles, wheeze, rhonchi, symmetrical chest rise, nonlabored, able to speak in full sentences ABD: Soft, NT, ND, no masses, positive bowel tones BACK: No scoliosis EXT: Pulses +24, trace bilateral pedal edema MS: Normal tone 4 extremities, nontender, no obvious deformities, full range of motion NEURO: CN II through CN XII grossly intact, motor strength 5/5 PSYCH: A+O 3, pleasant affect, appropriate speech, mood, insight and judgment SKIN: Normal turgor, normal texture, no lesions, no rashes Laboratory Laboratory Tests Test 11/29/17 07:12 White Blood Count 7.8 Red Blood Count 3.81 Hemoglobin 11.6 Hematocrit 33.0 Mean Corpuscular Volume 86.6 Mean Corpuscular Hemoglobin 30.5 Mean Corpuscular Hemoglobin Concent 35.2 Red Cell Distribution Width 13.3 Platelet Count 360 Mean Platelet Volume 7.2 Neutrophils (%) (Auto) 58.5 Lymphocytes (%) (Auto) 31.8 Monocytes (%) (Auto) 4.2 Eosinophils (%) (Auto) 4.4 Basophils (%) (Auto) 1.1 Neutrophils # (Auto) 4.6 Lymphocytes # (Auto) 2.5 Monocytes # (Auto) 0.3 Eosinophils # (Auto) 0.3 Basophils # (Auto) 0.1 CBC Comment DIFF FINAL Differential Comment Prothrombin Time 9.9 Prothromb Time International Ratio 1.0 Activated Partial Thromboplast Time 26.9 D-Dimer Quantitative (PE/DVT) 0.43 Blood Urea Nitrogen 14 Creatinine 1.06 Random Glucose 151 Total Protein 6.7 Albumin 3.3 Calcium Level 8.9 Magnesium Level 2.0 Alkaline Phosphatase 107 Aspartate Amino Transf (AST/SGOT) 19 Alanine Aminotransferase (ALT/SGPT) 31 Total Bilirubin 0.3 Sodium Level 142 Potassium Level 3.9 Chloride Level 110 Carbon Dioxide Level 22.4 Anion Gap 10 Estimat Glomerular Filtration Rate 53 Total Creatine Kinase 61 Troponin I LESS THAN 0.02 B-Type Natriuretic Peptide 138 Lipase 131 Result Diagram: 11/29/1771111/29/17711 Imaging Last 48 hours Impressions Chest X-Ray 11/29/17728 Signed Impressions: Service Date/Time: Wednesday, November 29, 2017 07:46 - CONCLUSION: No acute disease. No significant change has occurred. Giorgio Fernandez MD Course EKG NSB, no st t segments changes Caprini VTE Risk Assessment Caprini VTE Risk Assessment: Mod/High Risk (score >= 2) Caprini Risk Assessment Model Point Value = 1 Point Value = 2 Point Value = 3 Point Value = 5 Age 41-60 Minor surgery BMI > 25 kg/m2 Swollen legs Varicose veins or History of unexplained or recurrent spontaneous Oral contraceptives or hormone replacement Sepsis (< 1 month) Serious lung disease, including pneumonia (< 1 month) Abnormal pulmonary function Acute myocardial infarction Congestive heart failure (< 1 month) History of inflammatory bowel disease Medical patient at bed rest Age 61-74 Arthroscopic surgery Major open surgery (> 45 min) Laparoscopic surgery (> 45 min) Malignancy Confined to bed (> 72 hours) Immobilizing plaster cast Central venous access Age >= 75 History of VTE Family history of VTE Factor V Leiden Prothrombin [id number] Lupus anticoagulant Anticardiolipin antibodies Elevated serum homocysteine Heparin-induced thrombocytopenia Other congenital or acquired thrombophilia Stroke (< 1 month) Elective arthroplasty Hip, pelvis, or leg fracture Acute spinal cord injury (< 1 month) Prophylaxis Regimen Total Risk Factor Score Risk Level Prophylaxis Regimen 0-1 Low Early ambulation 2 Moderate Order ONE of the following: *Sequential Compression Device (SCD) *Heparin 5000 units SQ BID 3-4 Higher Order ONE of the following medications: *Heparin 5000 units SQ TID *Enoxaparin/Lovenox 40 mg SQ daily (WT < 150 kg, CrCl > 30 mL/min) *Enoxaparin/Lovenox 30 mg SQ daily (WT < 150 kg, CrCl > 10-29 mL/min) *Enoxaparin/Lovenox 30 mg SQ BID (WT < 150 kg, CrCl > 30 mL/min) AND/OR *Sequential Compression Device (SCD) 5 or more Highest Order ONE of the following medications: *Heparin 5000 units SQ TID (Preferred with Epidurals) *Enoxaparin/Lovenox 40 mg SQ daily (WT < 150 kg, CrCl > 30 mL/min) *Enoxaparin/Lovenox 30 mg SQ daily (WT < 150 kg, CrCl > 10-29 mL/min) *Enoxaparin/Lovenox 30 mg SQ BID (WT < 150 kg, CrCl > 30 mL/min) AND *Sequential Compression Device (SCD) Assessment and Plan Assessment and Plan #1 Atypical chest pain-admitted to chest pain center. Rule out with 3 sets of EKGs, cardiac enzymes, and monitor on telemetry. Will been seen and evaluated by Dr. Greg Dumont. Discussed possible Lexiscan in morning due to cardiac history and similar symptoms similar as previous myocardial infarction. #2 History of coronary artery disease-continue metoprolol, aspirin, lisinopril, Lipitor, and Effient. Consider continuing Imdur upon discharge. Discussed importance of taking all medications as prescribed. Instructed she could always call MD office or pharmacy for any confusion around medications. #3 History of fibromyalgia-continue gabapentin 1530 Seen and evaluated by Dr. Greg Dumont. Plan to complete Lexiscan in morning. Areli Alexander Nov 29, 2017 10:28
[2017-11-29] MEDS: GABAPENTIN 400 MG CAP PO SCH ×3 (12:29→20:52)
[2017-11-29 13:13] LABS: TROPONIN I LESS THAN 0.02 NG/ML (0.02-0.05)
[2017-11-29 14:02] LABS: TROPONIN I LESS THAN 0.02 NG/ML (0.02-0.05)
[2017-11-29] MEDS: MORPHINE SULFATE 4 MG/ML INJ IV PUSH PRN (16:35)
[2017-11-29] MEDS: ATORVASTATIN 10 MG TAB PO SCH (20:53)
[2017-11-29] MEDS: SODIUM CHLORIDE 0.9% FLUSH 10 ML FLUSH IV FLUSH SCH (20:54)
[2017-11-30] MEDS: MORPHINE SULFATE 4 MG/ML INJ IV PUSH PRN ×3 (02:47→10:30)
[2017-11-30 03:49] VITALS: BP 126/60; PULSE 69; RESP 18; TEMP 98.2; O2SAT 97
[2017-11-30 07:00] VITALS: PULSE 65
[2017-11-30 07:55] VITALS: BP 122/60; PULSE 72; RESP 18; TEMP 98.3; O2SAT 98
[2017-11-30] MEDS: ATORVASTATIN 10 MG TAB PO SCH (08:41)
[2017-11-30] MEDS: GABAPENTIN 400 MG CAP PO SCH ×2 (08:42→14:19)
[2017-11-30] MEDS: SODIUM CHLORIDE 0.9% FLUSH 10 ML FLUSH IV FLUSH SCH (08:45)
[2017-11-30] MEDS ORDERED: ASPIRIN 81 MG CHEW TAB PO SCH (09:00)
[2017-11-30] MEDS ORDERED: LISINOPRIL 5 MG TAB PO SCH (09:00)
[2017-11-30] MEDS ORDERED: ASPIRIN 325 MG TAB PO SCH (09:00)
[2017-11-30] MEDS ORDERED: PRASUGREL 10 MG TAB PO SCH (09:00)
--- NOTE | 2017-11-30 11:38 | EKG ---
Date Performed: 11/29/2017 Time Performed: 13:40:56 PTAGE: 62 years EKG: SINUS BRADYCARDIA BORDERLINE ECG Inferior T-wave has normalized but no significant change PREVIOUS TRACING : 11/29/2017 11.44 DOCTOR: Abhijit Cummings Interpretating Date/Time 11/30/2017 11:37:02
--- NOTE | 2017-11-30 11:39 | EKG ---
Date Performed: 11/29/2017 Time Performed: 11:44:42 PTAGE: 62 years EKG: SINUS BRADYCARDIA MINIMAL VOLTAGE CRITERIA FOR LVH, CONSIDER NORMAL VARIANT BORDERLINE ECG No change PREVIOUS TRACING : 11/29/2017 07.07 DOCTOR: Abhijit Cummings Interpretating Date/Time 11/30/2017 11:37:17
[2017-11-30] MEDS ORDERED: REGADENOSON INJ 0.4 MG/5 ML SYR ONE (12:04)
--- NOTE | 2017-11-30 13:43 | RADRPT ---
EXAM DATE/TIME: 11/30/2017 11:53 [facility] COMPARISON: MYOCARDIAL PERF PHARM SPECT, GATED W/EF, July 21, 2017, 13:15. INDICATIONS : Chest pain. Angina. DOSE: 25.9 mCi Tc99m Myoview at stress. 8.1 mCi Tc99m Myoview at rest. 0.4 mg Lexiscan STRESS SYMPTOMS: Shortness of breath, chest tightness. EJECTION FRACTION: > 70% MEDICAL HISTORY : Hypertension. SURGICAL HISTORY : Coronary artery stent. Appendectomy. section. hysterectomy. ENCOUNTER: Initial ACUITY: 1 day PAIN SCALE: 4/10 LOCATION: chest TECHNIQUE: The patient underwent pharmacologic stress with infusion of prescribed dose. Continuous ECG tracing was monitored during stress. Gated SPECT imaging was performed after stress and conventional SPECT i maging was performed at rest. The examination was performed on a SPECT/CT scanner, both attenuation and non-corrected datasets were reviewed. FINDINGS: DISTRIBUTION: The maximum perfused segment at stress is in the lateral wall. PERFUSION STUDY: No reversible perfusion defects identified. GATED STUDY: There is intact wall motion and thickening without hypokinetic or dyskinetic segments. CONCLUSION: No reversible perfusion defects or focal wall motion abnormalities. RISK CATEGORY: 1- Low Risk. Willie Galvez MD on November 30, 2017 at 13:39 Board Certified Radiologist. This report was verified electronically.
--- NOTE | 2017-11-30 14:20 | HHI.DS ---
Discharge Summary Admission Date Nov 29, 2017 at 09:07 Admitting Diagnosis chest pain CBC/BMP: 11/29/17 0712 11/29/17 0712 Significant Findings Laboratory Tests Test 11/29/17 07:12 11/29/17 11:40 11/29/17 13:15 Red Blood Count 3.81 MIL/MM3 (4.00-5.30) Hematocrit 33.0 % (35.0-46.0) Eosinophils (%) (Auto) 4.4 % (0.0-4.0) Creatinine 1.06 MG/DL (0.50-1.00) Random Glucose 151 MG/DL (74-106) Albumin 3.3 GM/DL (3.4-5.0) Chloride Level 110 MEQ/L (98-107) Estimat Glomerular Filtration Rate 53 ML/MIN (>89) Troponin I LESS THAN 0.02 NG/ML LESS THAN 0.02 NG/ML LESS THAN 0.02 NG/ML B-Type Natriuretic Peptide 138 PG/ML (0-100) Hospital Course Patient presented with atypical chest pain was ruled out for ACS using standard protocol. Subsequently evaluated with a nuclear stress test which showed no areas of reversible ischemia. She is discharged home to follow-up with her primary care physician with no changes in medications Pt Condition on Discharge: Good Discharge Disposition: Discharge Home Discharge Instructions DIET: Follow Instructions for: Heart Healthy Diet Activities you can perform: Regular-No Restrictions Abhijit Cummings MD Nov 30, 2017 14:20
--- NOTE | 2017-11-30 14:34 | PD.CARD.PN ---
Subjective Subjective Remarks After being informed that her evaluation shows no heart block the patient then tells me she has been under a lot of stress and could this be causing it. She has been under the care of Dr. Dempsey in the past. She requests medication for her anxiety and for the pain. She was instructed to return to her primary care physician Dr. Keo White to discuss further evaluation of her chest pain and possible medication. At her request she will be given an off work slip for 3 days to allow her time to see Dr. White. No additional medications were provided at this time Objective Medications Current Medications Medications (Trade) Dose Ordered Sig/Juan Route Start Time Stop Time Status Last Admin (NS Flush) 2 ml UNSCH PRN IVF 11/29/17 07:30 11/29/17 09:20 (NS Flush) 2 ml BID IV FLUSH 11/29/17 21:00 11/30/17 08:45 (Tylenol) 500 mg Q4H PRN PO 11/29/17 10:00 (Zofran Inj) 4 mg Q6H PRN IV PUSH 11/29/17 10:00 (Nitrostat Sl) 0.4 mg Q5M PRN SL 11/29/17 10:00 (Lipitor) 10 mg HS PO 11/29/17 21:00 11/30/17 08:41 (Neurontin) 800 mg QID PO 11/29/17 13:00 11/30/17 14:19 (Prinivil) 5 mg DAILY PO 11/30/17 09:00 11/30/17 08:42 (Effient) 10 mg DAILY PO 11/30/17 09:00 11/30/17 08:41 (Aspirin Chew) 81 mg DAILY PO 11/30/17 09:00 11/30/17 08:41 (Morphine Inj) 4 mg Q4H PRN IV PUSH 11/29/17 16:15 11/30/17 10:30 Vital Signs / I&O Vital Signs Date Time Temp Pulse Resp B/P (MAP) Pulse Ox O2 Delivery O2 Flow Rate FiO2 11/30/17 07:55 98.3 72 18 122/60 (80) 98 11/30/17 03:49 98.2 69 18 126/60 (82) 97 11/29/17 23:01 97.8 63 18 114/56 (75) 99 11/29/17 20:24 96 11/29/17 20:00 67 11/29/17 19:50 98.1 69 18 110/53 (72) 98 11/29/17 16:05 98.1 61 20 124/58 (80) 99 Imaging Last 24 hours Impressions Myocardial Perfusion Scan Nuc Med 11/30/17 0800 Signed Impressions: Service Date/Time: Thursday, November 30, 2017 11:53 - CONCLUSION: No reversible perfusion defects or focal wall motion abnormalities. RISK CATEGORY: 1- Low Risk. MD Emiliano Oh Donald J. MD Nov 30, 2017 14:34
--- NOTE | 2017-11-30 14:42 | EKG ---
Date Performed: 11/29/2017 Time Performed: 07:07:24 PTAGE: 62 years EKG: Sinus rhythm NORMAL ECG No change NO PREVIOUS TRACING DOCTOR: Abhijit Cummings Interpretating Date/Time 11/30/2017 14:42:03
--- NOTE | 2017-11-30 14:44 | TR ---
Date Performed: 11/30/2017 Time Performed: 12:17:42 DOCTOR: Abhijit Cummings DRUG LIST: CLINICAL HISTORY: REASON FOR TEST: REASON FOR ENDING: OBSERVATION: CONCLUSION: Lexiscan stress test was performed under standard four minute protocol. Radionuclide was injected one minute prior to ending the test. No electrocardiographic abormalities were present to suggest ischemia. Nuclear imaging and interpretation are pending. COMMENTS:
== END 2017-11-30 16:29 | disposition home or self-care (01) ==
LOC: NEPC 06:47 → NEDA 09:07 → NEPGCP 11:50
PROVIDERS: ADMIT Internal Medicine Cardiovascular Disease; ATTEND Internal Medicine Cardiovascular Disease
DX: R07.89 Other chest pain (principal); M79.7 Fibromyalgia; R11.0 Nausea; M54.9 Dorsalgia, unspecified; R00.1 Bradycardia, unspecified; I25.10 Atherosclerotic heart disease of native coronary artery without angina pectoris; I25.2 Old myocardial infarction; I10 Essential (primary) hypertension; E78.00 Pure hypercholesterolemia, unspecified; G25.81 Restless legs syndrome; F41.9 Anxiety disorder, unspecified; F32.9 Major depressive disorder, single episode, unspecified; Z79.82 Long term (current) use of aspirin; Z79.899 Other long term (current) drug therapy; Z95.5 Presence of coronary angioplasty implant and graft
CPT/HCPCS: 71045; 78452; 80053; 82550; 83690; 83735; 83880; 84484; 85025; 85379; 85610; 85730; 93005; 93017; 96374; 96375; 96376; 99285; A9502; G0378; J2270; J2405; J2785

== ENCOUNTER 2017-12-25 20:29 | Observation (INO) | payer BC ==
[~2017-12-25] VITALS: Ht 149.9 cm; Wt 74.0 kg
[2017-12-25] MEDS: SODIUM CHLOR 0.9% 1000 ML INJ 1,000 ML IV SCH (01:00)
[~2017-12-25 20:29] MED LIST changes: -AZIT250T3 PO; -BENZ100 PO; -IBUP200T PO; -ROBA750T PO; -ZOFR4TAB PO
[2017-12-25 20:33] VITALS: BP 182/85; PULSE 70; RESP 18; O2SAT 99
[2017-12-25 20:38] VITALS: BP 143/64; PULSE 68; RESP 18; TEMP 98.1; O2SAT 98
--- NOTE | 2017-12-25 20:44 | PD ---
Data Data Last Documented VS Vital Signs Date Time Temp Pulse Resp B/P (MAP) Pulse Ox O2 Delivery O2 Flow Rate FiO2 12/25/17 22:02 68 18 165/74 (104) 97 Room Air 12/25/17 20:38 98.1 Orders Orders Electrocardiogram (12/25/17 20:37) Complete Blood Count With Diff (12/25/17 20:37) Comprehensive Metabolic Panel (12/25/17 20:37) Ckmb (Isoenzyme) Profile (12/25/17 20:37) Troponin I (12/25/17 20:37) Prothrombin Time / Inr (Pt) (12/25/17 20:37) Act Partial Throm Time (Ptt) (12/25/17 20:37) Urinalysis - C+S If Indicated (12/25/17 20:37) Magnesium (Mg) (12/25/17 20:37) Thyroid Stimulating Hormone (12/25/17 20:37) Ct Brain W/O Iv Contrast(Rout) (12/25/17 20:37) Iv Access Insert/Monitor (12/25/17 20:37) Ecg Monitoring (12/25/17 20:37) Oximetry (12/25/17 20:37) Chest, Single Ap (12/25/17 ) Drug Screen, Random Urine (12/25/17 20:45) Alcohol (Ethanol) (12/25/17 20:45) Admit Order (Ed Use Only) (12/25/17 22:59) Labs Laboratory Tests Test 12/25/17 20:45 White Blood Count 7.8 TH/MM3 Red Blood Count 4.09 MIL/MM3 Hemoglobin 12.2 GM/DL Hematocrit 36.0 % Mean Corpuscular Volume 88.1 FL Mean Corpuscular Hemoglobin 29.8 PG Mean Corpuscular Hemoglobin Concent 33.8 % Red Cell Distribution Width 13.5 % Platelet Count 300 TH/MM3 Mean Platelet Volume 7.5 FL Neutrophils (%) (Auto) 45.1 % Lymphocytes (%) (Auto) 42.0 % Monocytes (%) (Auto) 6.8 % Eosinophils (%) (Auto) 4.4 % Basophils (%) (Auto) 1.7 % Neutrophils # (Auto) 3.5 TH/MM3 Lymphocytes # (Auto) 3.3 TH/MM3 Monocytes # (Auto) 0.5 TH/MM3 Eosinophils # (Auto) 0.3 TH/MM3 Basophils # (Auto) 0.1 TH/MM3 CBC Comment DIFF FINAL Differential Comment Prothrombin Time 9.7 SEC Prothromb Time International Ratio 1.0 RATIO Activated Partial Thromboplast Time 26.9 SEC Blood Urea Nitrogen 14 MG/DL Creatinine 1.08 MG/DL Random Glucose 96 MG/DL Total Protein 7.2 GM/DL Albumin 3.7 GM/DL Calcium Level 8.8 MG/DL Magnesium Level 2.4 MG/DL Alkaline Phosphatase 89 U/L Aspartate Amino Transf (AST/SGOT) 25 U/L Alanine Aminotransferase (ALT/SGPT) 25 U/L Total Bilirubin 0.3 MG/DL Sodium Level 143 MEQ/L Potassium Level 4.2 MEQ/L Chloride Level 110 MEQ/L Carbon Dioxide Level 26.0 MEQ/L Anion Gap 7 MEQ/L Estimat Glomerular Filtration Rate 51 ML/MIN Total Creatine Kinase 82 U/L Troponin I LESS THAN 0.02 NG/ML Thyroid Stimulating Hormone 3rd Gen 0.783 uIU/ML Ethyl Alcohol Level LESS THAN 3 MG/DL MDM Supervised Visit with AMELIA: Yes Narrative Course I, Dr. Resendiz, have reviewed the advance practice practitioner's documentation and am in agreement, met with the patient face to face, made the diagnosis, and the medical decision making was done by me. *My assessment and Findings: Patient seen and examined by me in addition to Jd Welsh PA-C, white bizarre altered mental status and repetitive questioning, I suspect psychiatric illnesses her underlying diagnosis but still the patient deserves medical admission to rule out medical causes of her altered mental status prior to being a psychiatric consult. This was discussed with Dr. Mcdermott who is happy to admit for observation. I do not perceive any focalized neurologic deficits in this patient. Initial workup negative Diagnosis Primary Impression: Altered mental status Qualified Codes: R41.82 - Altered mental status, unspecified Condition: Stable Randall Resendiz MD Dec 25, 2017 20:44
--- NOTE | 2017-12-25 21:09 | RADRPT ---
EXAM DATE/TIME: 12/25/2017 20:58 [facility] COMPARISON: CHEST SINGLE AP, November 29, 2017, 7:46. INDICATIONS : Chest pain. MEDICAL HISTORY : None. SURGICAL HISTORY : None. ENCOUNTER: Initial ACUITY: 1 day PAIN SCORE: Non-responsive. LOCATION: Bilateral chest FINDINGS: A single view of the chest demonstrates the lungs to be symmetrically aerated without evidence of mas s, infiltrate or effusion. The cardiomediastinal contours are unremarkable. Osseous structures are intact. CONCLUSION: No acute disease. Delmar Sam MD FACR on December 25, 2017 at 21:07 Board Certified Radiologist. This report was verified electronically.
--- NOTE | 2017-12-25 21:43 | PD ---
HPI Chief Complaint: Altered Mental Status Time Seen by Provider: 20:37 Travel History International Travel<30 days: No Contact w/Intl Traveler<30days: No Traveled to known affect area: No History of Present Illness HPI 62-year-old female that presents to the ED for evaluation of altered mental status. Patient was brought here by ambulance for evaluation of this. Apparently per report given patient has a close neighbor and friend that checks on her every afternoon. Apparently they always contacted Johny around 5:00 and this friend try to contact her but she did not get any answer. She got concerned because she never got a call back which is unusual for her. She went into her house and found her to be very confused and ambulating liking a days. She appeared to be very unsteady per report. Apparently per [facility] report she was alert and oriented 1. She cannot really give her any history and there is difficulty trying to get a history whether she fell or not. Patient herself told me that she remembers going to bed and feeling not well and then after waking up she was feeling very lousy. She denies any history of seizure or CVA. She does state have a history of heart problems. She was actually seen here about 2 weeks ago for a stress test. She denies any chest pain or headache. She overall states that she feels "cold". Per ambulance and during my evaluation she appears to be alert and oriented 4 but she appears to have some repetitive questioning and sometimes answer questions slowly compared to other questions. Even when asked the same thing twice. PFSH Past Medical History Hx Anticoagulant Therapy: Yes (81 ASA) Asthma: No Anxiety: Yes Depression: Yes Cardiac Catheterization: Yes Cardiovascular Problems: Yes High Cholesterol: Yes Chest Pain: Yes Congestive Heart Failure: No COPD: No Diabetes: No Diminished Hearing: No Fibromyalgia: Yes Hypertension: Yes Musculoskeletal: No Neurologic: No Sleep Apnea: No Thyroid Disease: No ?: Not Past Surgical History Appendectomy: Yes Section: Yes Coronary Stent: Yes (07/22/2017) Hysterectomy: Yes Other Surgery: Yes (BREAST REDUCTION , csection, hysterectomy) Family History Family Myocardial Infarction: Yes Social History Alcohol Use: No Tobacco Use: No Substance Use: No (HX OF) Allergies-Medications (Allergen,Severity, Reaction): Coded Allergies: No Known Allergies (Verified , 11/29/17) Reported Meds & Prescriptions Reported Meds & Active Scripts Active Isosorbide Mononitrate 10 Mg Tab 10 Mg PO BID Take 2 doses 7 hours apart. Aspirin Low Strength (Aspirin) 81 Mg Chew 81 Mg PO DAILY Lisinopril 5 Mg Tab 5 Mg PO DAILY Lipitor (Atorvastatin Calcium) 10 Mg Tab 10 Mg PO HS Effient (Prasugrel) 10 Mg Tab 10 Mg PO DAILY Reported Metoprolol Tartrate 50 Mg Tab 50 Mg PO BID Trazodone (Trazodone HCl) 100 Mg Tablet 100 Mg PO HS Remeron (Mirtazapine) 15 Mg Tab 15 Mg PO HS Gabapentin 800 Mg Tab 800 Mg PO QID Review of Systems Except as stated in HPI: all other systems reviewed are Neg Physical Exam Narrative GENERAL: SKIN: Warm and dry. HEAD: Atraumatic. Normocephalic. EYES: Pupils equal and round 4 mm reactive to light and accommodation. No scleral icterus. No injection or drainage. ENT: No nasal bleeding or discharge. Mucous membranes pink and moist. Tongue is midline. No uvula deviation. NECK: Trachea midline. No JVD. CARDIOVASCULAR: Regular rate and rhythm. No murmurs, S3, S4. RESPIRATORY: No accessory muscle use. Clear to auscultation. Breath sounds equal bilaterally. GASTROINTESTINAL: Abdomen soft, non-tender, nondistended. Hepatic and splenic margins not palpable. MUSCULOSKELETAL: Extremities without clubbing, cyanosis, or edema. No obvious deformities. Full range of motion of the upper and lower extremities bilaterally. 2+ pulses bilaterally. NEUROLOGICAL: Awake and alert. No obvious cranial nerve deficits. Motor grossly within normal limits. Five out of 5 muscle strength in the arms and legs. Normal speech. PSYCHIATRIC: Appropriate mood and affect; insight and judgment normal. Data Data Last Documented VS Vital Signs Date Time Temp Pulse Resp B/P (MAP) Pulse Ox O2 Delivery O2 Flow Rate FiO2 12/25/17 22:02 68 18 165/74 (104) 97 Room Air 12/25/17 20:38 98.1 Orders Orders Electrocardiogram (12/25/17 20:37) Complete Blood Count With Diff (12/25/17 20:37) Comprehensive Metabolic Panel (12/25/17 20:37) Ckmb (Isoenzyme) Profile (12/25/17 20:37) Troponin I (12/25/17 20:37) Prothrombin Time / Inr (Pt) (12/25/17 20:37) Act Partial Throm Time (Ptt) (12/25/17 20:37) Urinalysis - C+S If Indicated (12/25/17 20:37) Magnesium (Mg) (12/25/17 20:37) Thyroid Stimulating Hormone (12/25/17 20:37) Ct Brain W/O Iv Contrast(Rout) (12/25/17 20:37) Iv Access Insert/Monitor (12/25/17 20:37) Ecg Monitoring (12/25/17 20:37) Oximetry (12/25/17 20:37) Chest, Single Ap (12/25/17 ) Drug Screen, Random Urine (12/25/17 20:45) Alcohol (Ethanol) (12/25/17 20:45) Admit Order (Ed Use Only) (12/25/17 22:59) Labs Laboratory Tests Test 12/25/17 20:45 White Blood Count 7.8 TH/MM3 Red Blood Count 4.09 MIL/MM3 Hemoglobin 12.2 GM/DL Hematocrit 36.0 % Mean Corpuscular Volume 88.1 FL Mean Corpuscular Hemoglobin 29.8 PG Mean Corpuscular Hemoglobin Concent 33.8 % Red Cell Distribution Width 13.5 % Platelet Count 300 TH/MM3 Mean Platelet Volume 7.5 FL Neutrophils (%) (Auto) 45.1 % Lymphocytes (%) (Auto) 42.0 % Monocytes (%) (Auto) 6.8 % Eosinophils (%) (Auto) 4.4 % Basophils (%) (Auto) 1.7 % Neutrophils # (Auto) 3.5 TH/MM3 Lymphocytes # (Auto) 3.3 TH/MM3 Monocytes # (Auto) 0.5 TH/MM3 Eosinophils # (Auto) 0.3 TH/MM3 Basophils # (Auto) 0.1 TH/MM3 CBC Comment DIFF FINAL Differential Comment Prothrombin Time 9.7 SEC Prothromb Time International Ratio 1.0 RATIO Activated Partial Thromboplast Time 26.9 SEC Blood Urea Nitrogen 14 MG/DL Creatinine 1.08 MG/DL Random Glucose 96 MG/DL Total Protein 7.2 GM/DL Albumin 3.7 GM/DL Calcium Level 8.8 MG/DL Magnesium Level 2.4 MG/DL Alkaline Phosphatase 89 U/L Aspartate Amino Transf (AST/SGOT) 25 U/L Alanine Aminotransferase (ALT/SGPT) 25 U/L Total Bilirubin 0.3 MG/DL Sodium Level 143 MEQ/L Potassium Level 4.2 MEQ/L Chloride Level 110 MEQ/L Carbon Dioxide Level 26.0 MEQ/L Anion Gap 7 MEQ/L Estimat Glomerular Filtration Rate 51 ML/MIN Total Creatine Kinase 82 U/L Troponin I LESS THAN 0.02 NG/ML Thyroid Stimulating Hormone 3rd Gen 0.783 uIU/ML MDM Medical Decision Making Medical Screen Exam Complete: Yes Emergency Medical Condition: Yes Medical Record Reviewed: Yes Interpretation(s) CBC & BMP Diagram 12/25/17 20:45 Total Protein 7.2, Albumin 3.7, Calcium Level 8.8, Magnesium Level 2.4, Alkaline Phosphatase 89, Aspartate Amino Transf (AST/SGOT) 25, Alanine Aminotransferase (ALT/SGPT) 25, Total Bilirubin 0.[address] 12/25/172036 Signed Impressions: Service Date/Time: Monday, December 25, 2017 21:36 - CONCLUSION: No acute disease. Delmar Sam MD FACR Chest X-Ray 12/25/17 0000 Signed Impressions: Service Date/Time: Monday, December 25, 2017 20:58 - CONCLUSION: No acute disease. Delmar Sam MD FACR troponin and CKMB negative EKG shows sinus rhythm with no sign of acute ischemia or arrhythmia read by me and attending. Differential Diagnosis Altered mental status versus dehydration versus sepsis versus confusion versus delirium versus ACS Narrative Course 62-year-old female that presents to the ED for evaluation of altered mental status. Patient was properly examined and was found to have signs and symptoms consistent with altered mental status. I tentatively bothered the patient himself. Patient appears to be back at baseline. Unclear etiology of the symptoms. No history of this in the past but she does have a history of psychiatric disease. She denies taking any narcotics. Labs and imaging order. Labs and imaging were essentially unremarkable. Unclear etiology of the patient's altered mental status but definitely concerning as there is no documented evidence of this in the past. Patient still repetitive questioning but appears to be alert and oriented 4. TIA?. My attending Dr. Resendiz agrees with admission. Patient was admitted to Dr. Mcdermott who agrees to admission. Diagnosis Primary Impression: Altered mental status Qualified Codes: R41.82 - Altered mental status, unspecified Admitting Information Admitting Physician Requests: Jd Allen PA Dec 25, 2017 21:43
--- NOTE | 2017-12-25 21:54 | RADRPT ---
EXAM DATE/TIME: 12/25/2017 21:36 [facility] COMPARISON: CT BRAIN W/O CONTRAST, September 05, 2017, 20:48. INDICATIONS : Altered mental status. RADIATION DOSE: 35.27 CTDIvol (mGy) MEDICAL HISTORY : Cardiovascular disease. Hypertension. SURGICAL HISTORY : None. ENCOUNTER: Initial ACUITY: 1 day PAIN SCALE: Non-responsive LOCATION: cranial TECHNIQUE: Multiple contiguous axial images were obtained of the head. Using automated exposure control and adj ustment of the mA and/or kV according to patient size, radiation dose was kept as low as reasonably a chievable to obtain optimal diagnostic quality images. DICOM format image data is available electro nically for review and comparison. FINDINGS: CEREBRUM: The ventricles are normal for age. No evidence of midline shift, mass lesion, hemorrhage or acute in farction. No extra-axial fluid collections are seen. POSTERIOR FOSSA: The cerebellum and brainstem are intact. The 4th ventricle is midline. The cerebellopontine angle i s unremarkable. EXTRACRANIAL: The visualized portion of the orbits is intact. SKULL: The calvaria is intact. No evidence of skull fracture. CONCLUSION: No acute disease. Delmar Sam MD FACR on December 25, 2017 at 21:51 Board Certified Radiologist. This report was verified electronically.
[2017-12-25 21:58] LABS: AUTOMATED NEUTROPHIL # 3.5 TH/MM3 (1.8-7.7); BASOPHIL # 0.1 TH/MM3 (0-0.2); BASOPHIL % 1.7 % (0.0-2.0); EOSINOPHIL # 0.3 TH/MM3 (0-0.4); EOSINOPHIL % 4.4 % (0.0-4.0); HEMOGLOBIN 12.2 GM/DL (11.6-15.3); LYMPHOCYTE # 3.3 TH/MM3 (1.0-4.8); MEAN CELL VOLUME 88.1 FL (80.0-100.0); MEAN CORPUSCULAR HEMOGLOBIN 29.8 PG (27.0-34.0); MEAN CORPUSCULAR HGB CONC 33.8 % (32.0-36.0); MEAN PLATELET VOLUME 7.5 FL (7.0-11.0); MONO % 6.8 % (0.0-8.0); MONOCYTE # 0.5 TH/MM3 (0-0.9); NEUT % 45.1 % (16.0-70.0); PLATELET COUNT 300 TH/MM3 (150-450); RED BLOOD COUNT 4.09 MIL/MM3 (4.00-5.30); RED CELL DISTRIBUTION WIDTH 13.5 % (11.6-17.2); WHITE BLOOD COUNT 7.8 TH/MM3 (4.0-11.0)
[2017-12-25 22:02] VITALS: BP 165/74; PULSE 68; RESP 18; O2SAT 97
[2017-12-25 22:12] LABS: ALBUMIN 3.7 GM/DL (3.4-5.0); AST (GOT) 25 U/L (15-37); BLOOD UREA NITROGEN 14 MG/DL (7-18); CALCIUM 8.8 MG/DL (8.5-10.1); CHLORIDE 110 MEQ/L (98-107); CREATININE 1.08 MG/DL (0.50-1.00); GLOMERULAR FILTRATION RATE 51 ML/MIN (>89); GLUCOSE,RANDOM 96 MG/DL (74-106); MAGNESIUM 2.4 MG/DL (1.5-2.5); SODIUM (NA) 143 MEQ/L (136-145)
[2017-12-25 22:14] LABS: PROTHROMBIN TIME - PATIENT 9.7 SEC (9.8-11.6)
[2017-12-25 22:23] LABS: ALKALINE PHOSPHATASE 89 U/L (45-117); ALT (GPT) 25 U/L (10-53); TOTAL BILIRUBIN ADULT 0.3 MG/DL (0.2-1.0); TOTAL PROTEIN 7.2 GM/DL (6.4-8.2); TROPONIN I LESS THAN 0.02 NG/ML (0.02-0.05)
[2017-12-25] MEDS ORDERED: GLUCAGON 1 MG/ML VIAL OTHER PRN (23:30)
[2017-12-25] MEDS ORDERED: DEXTROSE 50% IN WATER 50 ML VIAL(D50) IV PUSH PRN (23:30)
[2017-12-25] MEDS ORDERED: ENALAPRILAT 1.25 MG/ML VIAL IV PUSH PRN (23:30)
[2017-12-25] MEDS ORDERED: SODIUM CHLORIDE 0.9% FLUSH 10 ML FLUSH IV FLUSH PRN (23:30)
[2017-12-25] MEDS: traZODone HCL 100 MG TAB PO SCH (23:45)
[2017-12-25] MEDS: MIRTAZAPINE 15 MG TAB PO SCH (23:45)
[2017-12-25] MEDS: METOPROLOL TARTRATE 50 MG TAB PO SCH (23:45)
[2017-12-25] MEDS: ISOSORBIDE MONONITRATE 20 MG TAB PO SCH (23:45)
[2017-12-25] MEDS: ATORVASTATIN 10 MG TAB PO SCH (23:45)
[2017-12-26] VITALS (8 sets, daily range): BP systolic 118–151; BP diastolic 61–70; PULSE 49–71; RESP 17–20; TEMP 97–98.2; O2SAT 95–100
--- NOTE | 2017-12-26 00:16 | HHI.HP ---
[facility] Unknown Admission Diagnosis altered mental status Diagnoses: Travel History International Travel<30 Days: No Contact w/Intl Traveler <30 Da: No Traveled to Known Affected Are: No History of Present Illness 62-year-old female with a past medical history significant for CAD status post GA in June 2017, hypertension, hyperlipidemia and depression presents to the emergency department for evaluation of altered mental status. During our interview, the patient is alone and cannot tell me why she was brought to the emergency department. Per emergency room documentation, a neighbor went into the patient's house and found her to be very confused. She also seemed to be unsteady on her feet. EMS was called and per their report the patient was A&O 1. During our interview the patient can tell me that she is in the hospital in [place], she knows the year and initially but then changes her answers to 2007, is slow to answer questions but is oriented to self. No slurred speech. Moves all 4 extremities spontaneously. Denies any chest pain or shortness of breath. Denies abdominal pain. No nausea/vomiting/diarrhea. Positive weakness. Review of Systems ROS Limitations: Clinical Condition Except as stated in HPI: all other systems reviewed are Neg Past Family Social History Past Medical History Coronary artery disease status post GA in June 2017 Hypertension Hyperlipidemia Depression Past Surgical History Cardiac catheterization with stent placement 1 Reported Medications Reported Meds & Active Scripts Active Isosorbide Mononitrate 10 Mg Tab 10 Mg PO BID Take 2 doses 7 hours apart. Aspirin Low Strength (Aspirin) 81 Mg Chew 81 Mg PO DAILY Lisinopril 5 Mg Tab 5 Mg PO DAILY Lipitor (Atorvastatin Calcium) 10 Mg Tab 10 Mg PO HS Effient (Prasugrel) 10 Mg Tab 10 Mg PO DAILY Reported Metoprolol Tartrate 50 Mg Tab 50 Mg PO BID Trazodone (Trazodone HCl) 100 Mg Tablet 100 Mg PO HS Remeron (Mirtazapine) 15 Mg Tab 15 Mg PO HS Gabapentin 800 Mg Tab 800 Mg PO QID Allergies: Coded Allergies: No Known Allergies (Verified , 11/29/17) Family History Mother with diabetes mellitus Social History Denies alcohol, tobacco and illicit drugs. Physical Exam Vital Signs Vital Signs Date Time Temp Pulse Resp B/P (MAP) Pulse Ox O2 Delivery O2 Flow Rate FiO2 12/25/17 22:02 68 18 165/74 (104) 97 Room Air 12/25/17 20:38 67 99 Room Air 12/25/17 20:38 98.1 68 18 143/64 (90) 98 Room Air 12/25/17 20:33 70 18 182/85 (117) 99 Physical Exam GENERAL: female lying in bed, sleeping SKIN: No rashes, ecchymoses or lesions. Cool and dry. HEAD: Atraumatic. Normocephalic. No temporal or scalp tenderness. EYES: Pupils equal round and reactive. Extraocular motions intact. No scleral icterus. No injection or drainage. ENT: Nose without bleeding, purulent drainage or septal hematoma. Throat without erythema, tonsillar hypertrophy or exudate. Uvula midline. Airway patent. NECK: Trachea midline. No JVD or lymphadenopathy. Supple, nontender, no meningeal signs. CARDIOVASCULAR: Regular rate and rhythm without murmurs, gallops, or rubs. RESPIRATORY: Clear to auscultation. Breath sounds equal bilaterally. No wheezes , rales, or rhonchi. GASTROINTESTINAL: Abdomen soft, non-tender, nondistended. No hepato-splenomegaly , or palpable masses. No guarding. MUSCULOSKELETAL: Extremities without clubbing, cyanosis, or edema. No joint tenderness, effusion, or edema noted. No calf tenderness. Negative Homans sign bilaterally. NEUROLOGICAL: Sleepy. Will awaken to her name. Answers questions slowly without slurred speech. Moves all 4 extremities spontaneously. Laboratory Laboratory Tests Test 12/25/17 20:45 White Blood Count 7.8 Red Blood Count 4.09 Hemoglobin 12.2 Hematocrit 36.0 Mean Corpuscular Volume 88.1 Mean Corpuscular Hemoglobin 29.8 Mean Corpuscular Hemoglobin Concent 33.8 Red Cell Distribution Width 13.5 Platelet Count 300 Mean Platelet Volume 7.5 Neutrophils (%) (Auto) 45.1 Lymphocytes (%) (Auto) 42.0 Monocytes (%) (Auto) 6.8 Eosinophils (%) (Auto) 4.4 Basophils (%) (Auto) 1.7 Neutrophils # (Auto) 3.5 Lymphocytes # (Auto) 3.3 Monocytes # (Auto) 0.5 Eosinophils # (Auto) 0.3 Basophils # (Auto) 0.1 CBC Comment DIFF FINAL Differential Comment Prothrombin Time 9.7 Prothromb Time International Ratio 1.0 Activated Partial Thromboplast Time 26.9 Blood Urea Nitrogen 14 Creatinine 1.08 Random Glucose 96 Total Protein 7.2 Albumin 3.7 Calcium Level 8.8 Magnesium Level 2.4 Alkaline Phosphatase 89 Aspartate Amino Transf (AST/SGOT) 25 Alanine Aminotransferase (ALT/SGPT) 25 Total Bilirubin 0.3 Sodium Level 143 Potassium Level 4.2 Chloride Level 110 Carbon Dioxide Level 26.0 Anion Gap 7 Estimat Glomerular Filtration Rate 51 Total Creatine Kinase 82 Troponin I LESS THAN 0.02 Thyroid Stimulating Hormone 3rd Gen 0.783 Result Diagram: 12/25/17204412/25/172044 Caprini VTE Risk Assessment Caprini VTE Risk Assessment: Mod/High Risk (score >= 2) Caprini Risk Assessment Model Point Value = 1 Point Value = 2 Point Value = 3 Point Value = 5 Age 41-60 Minor surgery BMI > 25 kg/m2 Swollen legs Varicose veins or History of unexplained or recurrent spontaneous Oral contraceptives or hormone replacement Sepsis (< 1 month) Serious lung disease, including pneumonia (< 1 month) Abnormal pulmonary function Acute myocardial infarction Congestive heart failure (< 1 month) History of inflammatory bowel disease Medical patient at bed rest Age 61-74 Arthroscopic surgery Major open surgery (> 45 min) Laparoscopic surgery (> 45 min) Malignancy Confined to bed (> 72 hours) Immobilizing plaster cast Central venous access Age >= 75 History of VTE Family history of VTE Factor V Leiden Prothrombin [id number] Lupus anticoagulant Anticardiolipin antibodies Elevated serum homocysteine Heparin-induced thrombocytopenia Other congenital or acquired thrombophilia Stroke (< 1 month) Elective arthroplasty Hip, pelvis, or leg fracture Acute spinal cord injury (< 1 month) Prophylaxis Regimen Total Risk Factor Score Risk Level Prophylaxis Regimen 0-1 Low Early ambulation 2 Moderate Order ONE of the following: *Sequential Compression Device (SCD) *Heparin 5000 units SQ BID 3-4 Higher Order ONE of the following medications: *Heparin 5000 units SQ TID *Enoxaparin/Lovenox 40 mg SQ daily (WT < 150 kg, CrCl > 30 mL/min) *Enoxaparin/Lovenox 30 mg SQ daily (WT < 150 kg, CrCl > 10-29 mL/min) *Enoxaparin/Lovenox 30 mg SQ BID (WT < 150 kg, CrCl > 30 mL/min) AND/OR *Sequential Compression Device (SCD) 5 or more Highest Order ONE of the following medications: *Heparin 5000 units SQ TID (Preferred with Epidurals) *Enoxaparin/Lovenox 40 mg SQ daily (WT < 150 kg, CrCl > 30 mL/min) *Enoxaparin/Lovenox 30 mg SQ daily (WT < 150 kg, CrCl > 10-29 mL/min) *Enoxaparin/Lovenox 30 mg SQ BID (WT < 150 kg, CrCl > 30 mL/min) AND *Sequential Compression Device (SCD) Assessment and Plan Assessment and Plan Assessment/plan: 1. Altered mental status Unclear etiology Urine drug screen, alcohol level pending Chemistry unremarkable CT head negative for acute process CVA workup including MRI/MRA brain and carotid ultrasound pending Patient's participation is minimal - unclear if this is intentional May be psychiatric component, psychiatry consulted 2. Coronary artery disease Status post GA and stent placement Stress test done on 11/30/17 was negative Patient denies any chest pain Continue Effient/aspirin 3. Hypertension/hyperlipidemia/depression Continue home medications FEN Nothing by mouth Electrolytes: Monitor and replete when necessary NS at 70 cc/hr Faye Mcdermott MD Dec 26, 2017 00:16
[2017-12-26] MEDS: traZODone HCL 100 MG TAB PO SCH ×2 (01:58→21:12)
[2017-12-26] MEDS: MIRTAZAPINE 15 MG TAB PO SCH ×2 (01:59→21:12)
[2017-12-26] MEDS: ISOSORBIDE MONONITRATE 20 MG TAB PO SCH ×3 (02:00→21:12)
[2017-12-26] MEDS: ATORVASTATIN 10 MG TAB PO SCH ×2 (02:00→21:12)
[2017-12-26 06:09] LABS: AUTOMATED NEUTROPHIL # 3.7 TH/MM3 (1.8-7.7); BASOPHIL # 0.1 TH/MM3 (0-0.2); BASOPHIL % 1.4 % (0.0-2.0); EOSINOPHIL # 0.3 TH/MM3 (0-0.4); EOSINOPHIL % 3.9 % (0.0-4.0); HEMATOCRIT 33.3 % (35.0-46.0); HEMOGLOBIN 11.4 GM/DL (11.6-15.3); LYMPH % 36.6 % (9.0-44.0); LYMPHOCYTE # 2.6 TH/MM3 (1.0-4.8); MEAN CELL VOLUME 87.6 FL (80.0-100.0); MEAN CORPUSCULAR HGB CONC 34.3 % (32.0-36.0); MEAN PLATELET VOLUME 7.5 FL (7.0-11.0); MONO % 6.8 % (0.0-8.0); MONOCYTE # 0.5 TH/MM3 (0-0.9); NEUT % 51.3 % (16.0-70.0); PLATELET COUNT 272 TH/MM3 (150-450); RED CELL DISTRIBUTION WIDTH 13.5 % (11.6-17.2); WHITE BLOOD COUNT 7.2 TH/MM3 (4.0-11.0)
[2017-12-26 06:43] LABS: BICARBONATE 22.7 MEQ/L (21.0-32.0); BLOOD UREA NITROGEN 13 MG/DL (7-18); CALCIUM 8.6 MG/DL (8.5-10.1); CHLORIDE 111 MEQ/L (98-107); CREATININE 0.91 MG/DL (0.50-1.00); GLOMERULAR FILTRATION RATE 63 ML/MIN (>89); GLUCOSE,RANDOM 91 MG/DL (74-106); SODIUM (NA) 143 MEQ/L (136-145)
[2017-12-26 06:45] LABS: CHOLESTEROL 186 MG/DL (120-200); TRIGLYCERIDES 129 MG/DL (42-150)
[2017-12-26 06:47] LABS: CHOLESTEROL/ HDL RATIO 4.06 RATIO; HDL CHOLESTEROL 45.8 MG/DL (40.0-60.0); LDL CHOLESTEROL 114 MG/DL (0-99)
[2017-12-26] MEDS: INSULIN ASPART SUPPLEMENTAL SCALE SQ SCH ×4 (08:00→21:00)
[2017-12-26] MEDS ORDERED: ASPIRIN 325 MG TAB PO SCH (09:00)
[2017-12-26] MEDS: SODIUM CHLORIDE 0.9% FLUSH 10 ML FLUSH IV FLUSH SCH ×2 (09:22→21:00)
[2017-12-26] MEDS: LISINOPRIL 5 MG TAB PO SCH (09:23)
[2017-12-26] MEDS: PRASUGREL 10 MG TAB PO SCH (09:23)
[2017-12-26] MEDS: ASPIRIN 81 MG CHEW TAB PO SCH (09:23)
[2017-12-26] MEDS: GABAPENTIN 400 MG CAP PO SCH ×4 (09:23→21:13)
[2017-12-26] MEDS: METOPROLOL TARTRATE 50 MG TAB PO SCH ×2 (09:23→21:12)
--- NOTE | 2017-12-26 09:32 | RADRPT ---
EXAM DATE/TIME: 12/26/2017 07:25 [facility] COMPARISON: US ARM LEFT VENOUS DOPPLER, August 03, 2017, 12:33. INDICATIONS : Cerebrovascular accident. MEDICAL HISTORY : Hypercholesterolemia. Hypertension. Glasses. Anticoagulant therapy. Chest pain. Depression. Anxiety . Claustrophobia. SURGICAL HISTORY : Appendectomy. Hysterectomy. section. Cardiac catheterization. Coronary artery stent. Breast reduction. ENCOUNTER: Initial ACUITY: 1 day PAIN SCORE: 0/10 LOCATION: Bilateral neck PEAK SYSTOLIC VELOCITIES (cm/sec): ICA/CCA RATIO: Right: 1.4 Left: 1.4 ICA: Right: 87.9 Left: 84.0 CCA: Right: 61.4 Left: 59.4 ECA: Right: 85.3 Left: 57.0 VERTEBRAL: Right: 46.5 antegrade Left: 47.1 antegrade Elevated flow velocities and ICA/CCA ratios have been found to correlate with increased degrees of vessel stenosis, calculated as percentage of diameter relative to a normal segment of distal ICA/CCA FINDINGS: RIGHT CAROTID: No significant stenosis is visualized. There is minimal plaquing at the bifurcation. The waveforms a re within normal limits. LEFT CAROTID: No significant stenosis is visualized. There is minimal plaquing at the bifurcation. The waveforms a re within normal limits. VERTEBRAL ARTERIES: Antegrade flow is seen in both vertebral arteries. MISCELLANEOUS: None. CONCLUSION: 1. No hemodynamically significant carotid artery stenosis identified. 2. Antegrade flow in both vertebral arteries. Jason Sam MD on December 26, 2017 at 9:29 Board Certified Radiologist. This report was verified electronically.
[2017-12-26] MEDS ORDERED: THIAMINE HCL 100 MG TAB PO ONE (10:15)
--- NOTE | 2017-12-26 13:55 | EKG ---
Date Performed: 12/25/2017 Time Performed: 20:49:02 PTAGE: 62 years EKG: Sinus rhythm NORMAL ECG INTERPRETATION BASED ON A DEFAULT AGE OF 40 YEARS Since the PREVIOUS TRACING , no significant change noted PREVIOUS TRACIN11/29/2017 13.40 DOCTOR: Carol Melgar Interpretating Date/Time 12/26/2017 13:54:47
[2017-12-26] MEDS: SODIUM CHLOR 0.9% 1000 ML INJ 1,000 ML IV SCH (14:24)
[2017-12-26 14:41] LABS: BACTERIA, URINE RARE /hpf; BILIRUBIN, URINE NEG (NEG); BLOOD, URINE NEG (NEG); GLUCOSE,URINE NEG (NEG); KETONE, URINE NEG (NEG); NITRITE,URINE NEG (NEG); SQUAMOUS EPITHELIAL CELL URINE 39 /hpf (0-5); TRANSITIONAL EPI CELLS, URINE <1 /hpf; URINE COLOR YELLOW (YELLW/STRAW); URINE LEUKOCYTE ESTERASE NEG (NEG)
[2017-12-26] MEDS ORDERED: CYANOCOBALAMIN 1000 MCG/ML VIAL IM ONE (17:00)
--- NOTE | 2017-12-26 17:04 | ECHRPT ---
Indication: CVA/TIA CONCLUSIONS Normal left ventricular size and wall thickness. The left ventricular systolic function is normal wi th an estimated ejection fraction in the range of 60-65%. No definite wall motion abnormalities. Mild mitral valve regurgitation. Trileaflet aortic valve. Mild aortic valve regurgitation. There is trace tricuspid valve regurgitation. The estimated pulmonary arterial pressure is 32 mmHg. BP: / HR: 49 Rhythm: Sinus MEASUREMENTS (Male / Female) Normal Values Technical Quality:Fair 2D ECHO LV Diastolic Diameter PLAX 4.0 cm 4.2 - 5.9 / 3.9 - 5.3 cm LV Systolic Diameter PLAX 3.0 cm IVS Diastolic Thickness 1.2 cm 0.6 - 1.0 / 0.6 - 0.9 cm LVPW Diastolic Thickness 1.0 cm 0.6 - 1.0 / 0.6 - 0.9 cm LV Relative Wall Thickness 0.5 RV Internal Dim ED PLAX 3.4 cm LVOT Diameter 2.0 cm LA Systolic Diameter LX 3.6 cm 3.0 - 4.0 / 2.7 - 3.8 cm M-MODE Aortic Root Diameter MM 3.0 cm LA Systolic Diameter MM 4.1 cm LA Ao Ratio MM 1.4 AV Cusp Separation MM 2.2 cm DOPPLER AV Peak Velocity 150.0 cm/s AV Peak Gradient 9.0 mmHg AI Peak Velocity 414.0 cm/s AI Peak Gradient 68.6 mmHg AI Pressure Half Time 828.5 ms LVOT Peak Velocity 107.0 cm/s LVOT Peak Gradient 4.6 mmHg AV Area Cont Eq pk 2.2 cm MV Area PHT 3.5 cm Mitral E Point Velocity 78.8 cm/s Mitral A Point Velocity 60.7 cm/s Mitral E to A Ratio 1.3 LV E' Lateral Velocity 12.0 cm/s Mitral E to LV E' Lateral Ratio 6.6 LV E' Septal Velocity 9.4 cm/s Mitral E to LV E' Septal Ratio 8.3 TR Peak Velocity 235.0 cm/s TR Peak Gradient 22.1 mmHg Right Atrial Pressure 10.0 mmHg Pulmonary Artery Systolic Pressu 32.1 mmHg Right Ventricular Systolic Press 32.1 mmHg FINDINGS LEFT VENTRICLE Normal left ventricular size and wall thickness. The left ventricular systolic function is normal wi th an estimated ejection fraction in the range of 60-65%. No definite wall motion abnormalities. RIGHT VENTRICLE Normal right ventricular size and systolic function. LEFT ATRIUM The left atrial size is normal. RIGHT ATRIUM The right atrial size is normal. ATRIAL SEPTUM Normal atrial septal thickness without atrial level shunting by limited color doppler interrogation. AORTA The aortic root and proximal ascending aorta are normal in size on limited imaging. MITRAL VALVE Structurally normal mitral valve. Mild mitral valve regurgitation. AORTIC VALVE Trileaflet aortic valve. Mild aortic valve regurgitation. TRICUSPID VALVE Structurally normal tricuspid valve. There is trace tricuspid valve regurgitation. The estimated pulmonary arterial pressure is 32 mmHg. PULMONARY VALVE Trivial pulmonary valve regurgitation. VESSELS The inferior vena cava is normal in size. PERICARDIUM No pericardial effusion. Heron Newton MD (Electronically Signed) Final Date:26 December 2017 17:03
[2017-12-26 17:27] LABS: HEMOGLOBIN A1C 5.6 % (4.3-6.0)
--- NOTE | 2017-12-26 17:28 | RADRPT ---
EXAM DATE/TIME: 12/26/2017 16:54 [facility] COMPARISON: No previous studies available for comparison. INDICATIONS : Back pain, myelopathy. RADIATION DOSE: 22.74 CTDIvol (mGy) MEDICAL HISTORY : Cardiovascular disease. Hypertension. SURGICAL HISTORY : Appendectomy. ENCOUNTER: Initial ACUITY: 1 day PAIN SCALE: 9/10 LOCATION: low back TECHNIQUE: Volumetric scanning of the lumbar spine was performed. Multiplanar reconstructions in the sagittal, coronal and oblique axial planes were performed. Using automated exposure control and adjustment of the mA and/or kV according to patient size, radiation dose was kept as low as reasonably achievable t o obtain optimal diagnostic quality images. DICOM format image data is available electronically for review and comparison. FINDINGS: Mild levoscoliosis of the lumbar spine. Vertebral body and disc heights are maintained throughout wit h no acute fracture or listhesis. There is hypertrophy and vacuum joint phenomenon in the articulatin g facets bilaterally at the lumbosacral junction. Spinal canal appears to be patent throughout. T12-L1: The thecal sac has a normal diameter. No evidence of disc bulge or protrusion. The neural foramina are patent bilaterally. L1-L2: The thecal sac has a normal diameter. No evidence of disc bulge or protrusion. The neural foramina are patent bilaterally. L2-L3: The thecal sac has a normal diameter. No evidence of disc bulge or protrusion. The neural foramina are patent bilaterally. L3-L4: The thecal sac has a normal diameter. No evidence of disc bulge or protrusion. The neural foramina are patent bilaterally. L4-L5: Mild bilateral facet hypertrophy. No evidence of disc bulge or protrusion. The neural foramina are patent bilaterally. L5-S1: Bilateral facet hypertrophy and vacuum joint phenomenon. Spinal canal and neural foramina are patent CONCLUSION: 1. Mild levoscoliosis of the lumbar spine with no acute fracture or listhesis. 2. Facet hypertrophy bilaterally at L4-5 and L5-S1. This is most severe at the lumbosacral junction w ith facet fragmentation and vacuum joint phenomenon. 3. However, spinal canal and neural foramina appear to be adequate throughout without obvious nerve r oot compromise. Demond Norwood MD on December 26, 2017 at 17:20 Board Certified Radiologist. This report was verified electronically.
[2017-12-26] MEDS ORDERED: ACETAMINOPHEN 325 MG TAB PO PRN (17:30)
[2017-12-26] MEDS: ACETAMINOPHEN/HYDROcodone 325 MG/5 MG TAB PO PRN (18:16)
--- NOTE | 2017-12-26 19:24 | RADRPT ---
EXAM DATE/TIME: 12/26/2017 18:26 [facility] COMPARISON: No previous studies available for comparison. INDICATIONS : CVA. Altered mental status. MEDICAL HISTORY : Hypertension. Myocardial infarction. Coronary artery disease. SURGICAL HISTORY : Coronary artery stent. ENCOUNTER: Initial ACUITY: 1 day PAIN SCORE: 0/10 LOCATION: Head. TECHNIQUE: Multiplanar, multisequence MRI of the brain was performed without contrast. FINDINGS: CEREBRUM: The ventricles are normal for age. No evidence of midline shift, mass lesion, hemorrhage or acute in farction. No extraaxial fluid collections are seen. The pituitary gland and suprasellar cistern are normal in configuration. WHITE MATTER: No significant signal abnormalities are seen in the white matter. POSTERIOR FOSSA: The cerebellum and brainstem are intact. The 4th ventricle is midline. The cerebellopontine angle is unremarkable. The cerebellar tonsils are normal in position. DIFFUSION IMAGING: No focal areas of restricted diffusion are seen. No evidence of acute infarction. EXTRACRANIAL: The visualized portions of the orbits and paranasal sinuses are unremarkable. CONCLUSION: Normal examination for a patient of this age. Blayne Watts MD on December 26, 2017 at 19:20 Board Certified Radiologist. This report was verified electronically.
--- NOTE | 2017-12-26 19:26 | RADRPT ---
EXAM DATE/TIME: 12/26/2017 18:26 [facility] COMPARISON: No previous studies available for comparison. INDICATIONS : CVA. Altered mental status. MEDICAL HISTORY : Hypertension. Myocardial infarction. Coronary artery disease. SURGICAL HISTORY : Coronary artery stent. ENCOUNTER: Initial ACUITY: 1 day PAIN SCORE: 0/10 LOCATION: Head. Please note a normal MRA of the brain does not entirely exclude the possibility of a small aneurysm, nor the possibility of distal intracranial vessel disease. TECHNIQUE: 3D time of flight MRA was performed. Source images, multiplanar STS MIP, and 3D volume MIP reconstru ctions were reviewed. FINDINGS: There is excellent visualization of the major intracranial arteries out to the second-order branch ve ssels. There is no evidence for aneurysm, vessel truncation or stenosis, and no evidence for vascula r malformation. CONCLUSION: Normal examination for a patient of this age. Blayne Watts MD on December 26, 2017 at 19:22 Board Certified Radiologist. This report was verified electronically.
[2017-12-26] MEDS ORDERED: MORPHINE SULFATE 2 MG/ML SYRINGE IV PUSH ONE (20:45)
[2017-12-26] MEDS: CYANOCOBALAMIN 1,000 MCG TAB PO SCH (21:13)
[2017-12-27 04:26] VITALS: BP 101/52; PULSE 61; RESP 20; TEMP 98.7; O2SAT 96
[2017-12-27] MEDS: SODIUM CHLOR 0.9% 1000 ML INJ 1,000 ML IV SCH (06:49)
[2017-12-27] MEDS: ACETAMINOPHEN/HYDROcodone 325 MG/5 MG TAB PO PRN (07:40)
--- NOTE | 2017-12-27 07:59 | HHI.PR ---
Subjective Remarks Follow-up on patient with altered mental status. Patient seen and examined. Patient is now alert and oriented 3. Patient complains of left-sided frontal headache not relieved with [place]. She endorses dizziness occasionally upon standing. She denies any numbness, tingling, weakness or vision changes. She denies any fever or chills. Denies any chest pain or shortness of breath. Denies any nausea, vomiting or abdominal pain. Objective Vitals Vital Signs Date Time Temp Pulse Resp B/P (MAP) Pulse Ox O2 Delivery O2 Flow Rate FiO2 12/27/17 04:26 98.7 61 20 101/52 (68) 96 12/26/17 21:01 18 12/26/17 20:46 97.9 63 20 141/63 (89) 98 12/26/17 16:26 52 12/26/17 15:55 98.0 50 18 143/62 (89) 100 12/26/17 12:10 97.9 56 18 118/62 (80) 96 I/O 12/26/17 12/26/17 12/26/17 12/27/17 12/27/17 12/27/17 07:00 15:00 23:00 07:00 15:00 23:00 Intake Total 200 ml Balance 200 ml Intake Oral 200 ml # Voids 1 Result Diagram: 12/26/17 0433 12/26/17 0433 Imaging Last Impressions Lumbar Spine CT 12/26/17 0000 Signed Impressions: Service Date/Time: December 16:54 - CONCLUSION: 1. Mild levoscoliosis of the lumbar spine with no acute fracture or listhesis. 2. Facet hypertrophy bilaterally at L4-5 and L5-S1. This is most severe at the lumbosacral junction with facet fragmentation and vacuum joint phenomenon. 3. However, spinal canal and neural foramina appear to be adequate throughout without obvious nerve root compromise. Demond Norwood MD Head Magnetic Resonance Angiography 12/26/17 0000 Signed Impressions: Service Date/Time: December 18:26 - CONCLUSION: Normal examination for a patient of this age. Blayne Watts MD Carotid Artery Ultrasound 12/26/17 0000 Signed Impressions: Service Date/Time: December 07:25 - CONCLUSION: 1. No hemodynamically significant carotid artery stenosis identified. 2. Antegrade flow in both vertebral arteries. Jason Sam MD Brain MRI 12/26/17 0000 Signed Impressions: Service Date/Time: December 18:26 - CONCLUSION: Normal examination for a patient of this age. Blayne Watts MD Head CT 12/25/172036 Signed Impressions: Service Date/Time: Monday, December 25, 2017 21:36 - CONCLUSION: No acute disease. Delmar Sam MD FACR Chest X-Ray 12/25/17 0000 Signed Impressions: Service Date/Time: Monday, December 25, 2017 20:58 - CONCLUSION: No acute disease. Delmar Sam MD FACR Objective Remarks GENERAL: WDWN female, INAD. Awake and alert. SKIN: No rashes, ecchymoses or lesions. Cool and dry. HEAD: Atraumatic. Normocephalic. No temporal or scalp tenderness. EYES: Extraocular motions intact. No scleral icterus. No injection or drainage. ENT: Nose without bleeding or purulent drainage. Airway patent. MMM. NECK: Trachea midline. CARDIOVASCULAR: Regular rate and rhythm without murmurs, gallops, or rubs. RESPIRATORY: Clear to auscultation. Breath sounds equal bilaterally. No wheezes , rales, or rhonchi. GASTROINTESTINAL: Abdomen soft, non-tender, nondistended. MUSCULOSKELETAL: Extremities without clubbing, cyanosis, or edema. No calf tenderness. NEUROLOGICAL: Alert and oriented. CN II-XII grossly intact. Moves all 4 extremities spontaneously. Motor and sensory function grossly intact bilateral upper and lower extremity's. Nonfocal. Normal speech. Medications and IVs Current Medications Medications (Trade) Dose Ordered Sig/Juan Route Start Time Stop Time Status Last Admin (NS Flush) 2 ml BID IV FLUSH 12/26/17 09:00 12/27/17 08:54 (NS Flush) 2 ml UNSCH PRN IV FLUSH 12/25/17 23:30 (Vasotec Inj) 1.25 mg Q4H PRN IV PUSH 12/25/17 23:30 (NovoLOG SUPPLEMENTAL SCALE) 1 ACHS SQ 12/26/17 08:00 (D50w (Vial) Inj) 50 ml UNSCH PRN IV PUSH 12/25/17 23:30 (Glucagon Inj) 1 mg UNSCH PRN OTHER 12/25/17 23:30 (Lipitor) 10 mg HS PO 12/25/17 23:45 12/26/17 21:12 (Neurontin) 800 mg QID PO 12/26/17 09:00 12/27/17 13:06 (Ismo) 10 mg BID PO 12/25/17 23:45 12/27/17 08:53 (Prinivil) 5 mg DAILY PO 12/26/17 09:00 12/27/17 08:54 (Lopressor) 50 mg BID PO 12/25/17 23:45 12/26/17 21:12 (Remeron) 15 mg HS PO 12/25/17 23:45 12/26/17 21:12 (Desyrel) 100 mg HS PO 12/25/17 23:45 12/26/17 21:12 (Aspirin Chew) 81 mg DAILY PO 12/26/17 09:00 12/27/17 08:53 (Effient) 10 mg DAILY PO 12/26/17 09:00 12/27/17 08:53 (Vitamin B1) 100 mg DAILY PO 12/27/17 09:00 12/27/17 08:54 (Vitamin B12) 1,000 mcg BID PO 12/26/17 21:00 12/27/17 08:53 ([place] 5-325 Mg) 1 tab Q8H PRN PO 12/26/17 17:30 12/27/17 07:40 (Tylenol) 650 mg Q6HR PRN PO 12/26/17 17:30 12/27/17 10:40 A/P Assessment and Plan Assessment/plan: Altered mental status, resolved, patient has returned to baseline -Unclear etiology -Urine drug screen negative, Chemistry unremarkable, CT head negative for acute process -CVA workup including MRI/MRA brain and carotid ultrasound unremarkable -Orthostatic BP measurements negative -Abnormal EEG. Some diffuse slowing seen consistent with a mild diffuse encephalopathy, but on top of that, these sharply contoured waveforms are seen which are synchronous and symmetric and go through the entire hemispheres. -Neurology following, appreciate recommendations. Discussed EEG findings directly with Dr. Tucker who cleared patient for discharge with recommendation for gabapentin only -NO DRIVING UNTIL SEEN BY DR. TUCKER OUTPATIENT Headache -suspect secondary to NPO -cleared for diet order -Trial of Fioricet Coronary artery disease Status post [facility] and stent placement Stress test done on 11/30/17 was negative -Patient denies any chest pain -Continue Effient/aspirin Hypertension/hyperlipidemia/depression Bradycardia -Continue home medications -decrease dose of Metoprolol to 25mg BID -continue to monitor BP and adjust treatment accordingly FEN Electrolytes: Monitor and replete when necessary Discharge patient to home with [facility] PT/OT Condition on discharge: stable Heart healthy Diet as tolerated Activity per PT/OT recommendations NO DRIVING UNTIL RE-EVALUATED BY NEUROLOGY Rx written: Metoprolol 25mg BID Follow-up with primary care physician and neurology Porsha Vásquez Dec 27, 2017 07:59
[2017-12-27] MEDS: INSULIN ASPART SUPPLEMENTAL SCALE SQ SCH ×2 (08:00→12:00)
[2017-12-27 08:28] VITALS: BP 120/68; PULSE 55; RESP 20; TEMP 97.8; O2SAT 97
--- NOTE | 2017-12-27 08:50 | MB ---
cc: Leticia Richey MD DATE: 12/26/2017 REASON FOR CONSULTATION: Encephalopathy and possible abnormal EEG. HISTORY OF PRESENT ILLNESS: This is a 62-year-old woman who was admitted to the hospital yesterday because apparently she was found confused. She states that she was going to get her door. She heard her neighbor knocking and she fell and hit her head. She was not confused. She states that she maybe started feeling better about 03:00, but has a headache. She has a history of hypertension, hyperlipidemia. She was admitted here earlier last month with some chest pain and had extensive workup. She had a cardiac catheterization with a stent in the past, as well as history of depression. She had a stress test done as well at that time. It did not show any perfusion defects or wall motion abnormalities. She is complaining of a headache now and just chronic low back pain. PHYSICAL EXAMINATION: VITAL SIGNS: Temperature is 98, pulse 52, respiratory rate 18, blood pressure 143/62, saturating 100% on room air. NECK: Supple. I do not appreciate bruits. HEART: Regular. NEUROLOGIC: She is awake and alert. She knows that she is at [place]. She is not sure if it is the fourth or the fifth. She knows it is . She knows she missed a day of work. She works in customer service on the telephone. Pupils reactive. Visual [place] are full. Face symmetrical. Tongue midline. Normal speech. Motor, I do not appreciate any weakness, drift or leg lag. Cerebellar normal. Toes are both downgoing. Reflexes are 1+. Gait is withheld. LABORATORY DATA: Reviewed. A B12 is 252. TSH 0.783. Glucose is 91, GFR 63. Hemoglobin A1c is pending. Coag panel unremarkable. CBC, hemoglobin is 11.4. Tox screen is negative. Urine is unremarkable. IMAGING: Carotid ultrasound, no stenosis. Lumbar spine CT shows levoscoliosis. Lumbar hypertrophy, bilateral L4-L5 to S1, more severe at lumbosacral junction. EEG report is not reported yet, not read. CT did not show any acute findings. PLAN: She currently is on thiamine, B12. [place] was given for her headache. Baby aspirin, I will continue that. She is on Effient as well. Gabapentin 800 mg 4 times a day, isosorbide, metoprolol, mirtazapine, trazodone. Continue her baby aspirin. Continue her pain medication and see if that helps. If that does not help her headache nor her sciatic pain, should put her on a Medrol Dosepak. Consider an MRI, but I think she is back to baseline at this point in time. I am going to go ahead and order an MRI just because she said she had some slurring of words day prior. We will get the EEG report. She is already on a high low-dose gabapentin, which is also an antiepileptic. I would not put her on any antiseizure medicine at this point in time unless there is significant abnormality seen on her EEG. Can certainly consider some Keppra 500 mg b.i.d. and have her followup with Neurology as an outpatient. Maintain seizure precautions, although there is no evidence that she had a seizure. Going back to look at her labs, I do not see CK elevation to indicate any seizure-like activity. Usually CK is elevated with a generalized tonic-clonic event. MRI is unremarkable. Certainly, she can be discharged from my perspective and have her followup as an outpatient. MD DYLAN Hernandez/MONICA , 05:44 PM , 06:08 PM
[2017-12-27] MEDS: METOPROLOL TARTRATE 50 MG TAB PO SCH ×2 (08:53→08:57)
[2017-12-27] MEDS: ASPIRIN 81 MG CHEW TAB PO SCH (08:53)
[2017-12-27] MEDS: PRASUGREL 10 MG TAB PO SCH (08:53)
[2017-12-27] MEDS: ISOSORBIDE MONONITRATE 20 MG TAB PO SCH (08:53)
[2017-12-27] MEDS: CYANOCOBALAMIN 1,000 MCG TAB PO SCH (08:53)
[2017-12-27] MEDS: SODIUM CHLORIDE 0.9% FLUSH 10 ML FLUSH IV FLUSH SCH (08:54)
[2017-12-27] MEDS: GABAPENTIN 400 MG CAP PO SCH ×2 (08:54→13:06)
[2017-12-27] MEDS: LISINOPRIL 5 MG TAB PO SCH (08:54)
[2017-12-27] MEDS ORDERED: THIAMINE HCL 100 MG TAB PO SCH (09:00)
--- NOTE | 2017-12-27 09:37 | MG ---
cc: Greg Pereira MD ID #[id number] NOTE: Hyperventilation not performed. Very confused. Anticoagulation. Cardiac Cath. Fibromyalgia. MEDICATIONS: Neurontin, Remeron, Desyrel. FINDINGS: Diffuse 6 Hz slowing is noted. Some alpha rhythms are seen to 8-9 Hz diffusely. There are some higher amplitude waveforms noted that appear slightly sharp diffusely. The patient is noted to be awake at the beginning of the recording. Some diffuse slowing is seen at times. These waves could be considered triphasic type waves, although they are a little atypical for that. They seem to phase reverse near the midline head region and are fairly continuous throughout the recording. Hyperventilation is not performed. Photic stimulation is performed without significant posterior driving. IMPRESSION: Abnormal EEG. Some diffuse slowing seen consistent with a mild diffuse encephalopathy, but on top of that, these sharply contoured waveforms are seen which are synchronous and symmetric and go through the entire hemispheres. Whether these could be metabolic is unclear. Clinical correlation is needed. Certainly, the patient would be at increased risk for seizures, although no prolonged seizures were noted here. Clinical correlation is needed. MD KIESHA Gonzalez/KALIN , 09:22 AM , 09:37 AM
[2017-12-27 11:51] VITALS: BP 122/60; PULSE 60; RESP 20; TEMP 98.2; O2SAT 96
[2017-12-27] MEDS ORDERED: ACETAMIN 325 MG/BUTALBITAL 50 MG/CAFFEINE 40 MG TAB PO ONE (13:15)
--- NOTE | 2017-12-27 14:37 | HHI.FF ---
Face to Face Verification Diagnosis: (1) Weakness (2) Degenerative disc disease, lumbar (3) Altered mental status (4) Hypertension Physical Therapy Order: Evaluate and Treat, Improve ambulation, Strength and gait training Occupational Therapy Order: Evaluate and Treat, Improve ADL, Gross motor coordination, Fine motor coordination I have seen patient Radha Velazquez on 12/27/17. My clinical findings support the need for the requested home health care services because: Deconditioned w/ increased weakness Limited ability to care for self Impaired cognition/judgement High risk of falls I certify that my clinical findings support that this patient is homebound because: Impaired cognitive ability/safety Unsteady gait/balance Unsafe to leave home unassisted Unable to use public transportation Porsha Vásquez Dec 27, 2017 14:37
[2017-12-27 15:44] VITALS: BP_SYST 120; BP_SYST 129; BP_SYST 134; BP_DIAS 55; BP_DIAS 64; BP_DIAS 68; PULSE 55; RESP 18; O2SAT 96
[2017-12-27] MEDS ORDERED: METO25TA3 PO (16:09)
== END 2017-12-27 18:33 | disposition home or self-care (01) ==
LOC: NEPE 20:29 → NEDA 23:00 → NEDH 12-26 03:26 → NEPHCDU 12-26 11:42
PROVIDERS: ADMIT Internal Medicine; ATTEND Internal Medicine
DX: R41.82 Altered mental status, unspecified (principal); R94.01 Abnormal electroencephalogram [EEG]; G93.40 Encephalopathy, unspecified; R26.81 Unsteadiness on feet; R00.1 Bradycardia, unspecified; R51 Headache; I25.10 Atherosclerotic heart disease of native coronary artery without angina pectoris; I25.2 Old myocardial infarction; I10 Essential (primary) hypertension; E78.00 Pure hypercholesterolemia, unspecified; M79.7 Fibromyalgia; M54.5 Low back pain; G89.29 Other chronic pain; F32.9 Major depressive disorder, single episode, unspecified; F41.9 Anxiety disorder, unspecified; Z79.899 Other long term (current) drug therapy; Z79.82 Long term (current) use of aspirin; Z95.5 Presence of coronary angioplasty implant and graft
CPT/HCPCS: 70450; 70544; 70551; 71045; 72131; 80048; 80053; 80061; 80307; 81001; 82550; 82607; 82948; 83036; 83735; 83921; 84443; 84484; 85025; 85610; 85730; 92507; 92523; 93005; 93306; 93880; 95819; 96361; 96374; 97116; 97162; 97166; 97530; 99285; G0378; G8987; G8988; J2270; J3420; J7030

== ENCOUNTER 2018-01-14 14:29 | Emergency (ER) | payer SELFPAY ==
[~2018-01-14 14:29] MED LIST changes: +METO25TA3 PO; -METO50TA PO
[2018-01-14 14:35] VITALS: BP 143/75; PULSE 83; RESP 18; TEMP 97.1; O2SAT 97
[2018-01-14] MEDS ORDERED: SODIUM CHLOR 0.9% 1000 ML INJ 1,000 ML IV SCH (15:11)
[2018-01-14] MEDS ORDERED: SODIUM CHLORIDE 0.9% FLUSH 10 ML FLUSH IV FLUSH PRN (15:15)
[2018-01-14] MEDS ORDERED: ONDANSETRON HCL 4 MG/2 ML VIAL IVP ONE (15:15)
[2018-01-14] MEDS ORDERED: MORPHINE SULFATE 4 MG/ML INJ IV PUSH ONE (15:15)
[2018-01-14 16:07] LABS: AUTOMATED NEUTROPHIL # 3.1 TH/MM3 (1.8-7.7); BASOPHIL # 0.1 TH/MM3 (0-0.2); EOSINOPHIL # 0.3 TH/MM3 (0-0.4); EOSINOPHIL % 4.1 % (0.0-4.0); HEMATOCRIT 35.1 % (35.0-46.0); HEMOGLOBIN 11.9 GM/DL (11.6-15.3); LYMPH % 45.6 % (9.0-44.0); LYMPHOCYTE # 3.5 TH/MM3 (1.0-4.8); MEAN CELL VOLUME 88.1 FL (80.0-100.0); MEAN CORPUSCULAR HEMOGLOBIN 29.8 PG (27.0-34.0); MEAN CORPUSCULAR HGB CONC 33.8 % (32.0-36.0); MEAN PLATELET VOLUME 7.4 FL (7.0-11.0); MONO % 7.6 % (0.0-8.0); MONOCYTE # 0.6 TH/MM3 (0-0.9); NEUT % 40.7 % (16.0-70.0); PLATELET COUNT 262 TH/MM3 (150-450); RED BLOOD COUNT 3.98 MIL/MM3 (4.00-5.30); WHITE BLOOD COUNT 7.6 TH/MM3 (4.0-11.0)
--- NOTE | 2018-01-14 16:16 | PD ---
HPI . Abdominal pain Chief Complaint: Abdominal Pain Time Seen by Provider: 15:01 Travel History International Travel<30 days: No Contact w/Intl Traveler<30days: No Traveled to known affect area: No History of Present Illness HPI This patient presents with chief complaint of left lower quadrant abdominal pain. Onset was today about an hour ago. It is associated with some nausea but no vomiting. She states that she has a history of diverticulitis in the remote past and is concerned that she has a flareup of same. She has not noted any modifying factors. She rates her pain at 10/10. In addition, the patient reports loose stools for about 3 weeks. She reports incontinence of stools when she is asleep. PFSH Past Medical History Hx Anticoagulant Therapy: Yes (81 ASA) Arthritis: No Asthma: No Autoimmune Disease: No Anxiety: No Depression: No Heart Rhythm Problems: No Cancer: No Cardiac Catheterization: Yes Cardiovascular Problems: No High Cholesterol: No Chemotherapy: No Chest Pain: No Congestive Heart Failure: No COPD: No Cerebrovascular Accident: No Diabetes: No (doing blood sugars) Diminished Hearing: No Diverticulitis: Yes Endocrine: No Fibromyalgia: Yes GERD: No Genitourinary: No Hiatal Hernia: No Hypertension: Yes Immune Disorder: No Kidney Stones: No Musculoskeletal: Yes Neurologic: Yes (back pain is chronic, now she fell and it hurts more) Psychiatric: No Reproductive: No Respiratory: No Migraines: No Radiation Therapy: No Renal Failure: No Seizures: No (seizure potential, patient made aware) Sickle Cell Disease: No Sleep Apnea: No Thyroid Disease: No Ulcer: No ?: Not Past Surgical History Abdominal Surgery: No AICD: No Appendectomy: Yes Arteriovenous Shunt: No Cardiac Surgery: No Section: Yes Coronary Stent: Yes (07/22/2017) Ear Surgery: No Endocrine Surgery: No Eye Surgery: No Genitourinary Surgery: No Gynecologic Surgery: No Hysterectomy: Yes Insulin Pump: No Joint Replacement: No Oral Surgery: No Pacemaker: No Thoracic Surgery: No Family History Family Myocardial Infarction: Yes Social History Alcohol Use: No Tobacco Use: No Substance Use: No Allergies-Medications (Allergen,Severity, Reaction): Coded Allergies: No Known Allergies (Verified , 11/29/17) Reported Meds & Prescriptions Reported Meds & Active Scripts Active Metoprolol Tartrate 25 Mg Tab 25 Mg PO BID Isosorbide Mononitrate 10 Mg Tab 10 Mg PO BID Take 2 doses 7 hours apart. Aspirin Low Strength (Aspirin) 81 Mg Chew 81 Mg PO DAILY Lisinopril 5 Mg Tab 5 Mg PO DAILY Lipitor (Atorvastatin Calcium) 10 Mg Tab 10 Mg PO HS Effient (Prasugrel) 10 Mg Tab 10 Mg PO DAILY Reported Trazodone (Trazodone HCl) 100 Mg Tablet 100 Mg PO HS Remeron (Mirtazapine) 15 Mg Tab 15 Mg PO HS Gabapentin 800 Mg Tab 800 Mg PO QID Review of Systems Except as stated in HPI: all other systems reviewed are Neg General / Constitutional: No: Fever, Chills Gastrointestinal: Positive: Nausea, Diarrhea, Abdominal Pain, No: Vomiting Genitourinary: No: Urgency, Frequency, Dysuria Physical Exam Narrative GENERAL: Awake and alert and in no acute distress. SKIN: warm/dry. HEAD: Normocephalic. Atraumatic. EYES: Pupils equal and round. No scleral icterus. No injection or drainage. ENT: No nasal bleeding or discharge. Mucous membranes pink and moist. NECK: Trachea midline. Full range of motion without pain.. CARDIOVASCULAR: Regular rate and rhythm. RESPIRATORY: No accessory muscle use. Clear to auscultation. Breath sounds equal bilaterally. GASTROINTESTINAL: Abdomen soft. Left lower quadrant tenderness. Bowel sounds present. Nondistended. MUSCULOSKELETAL: No obvious deformities. NEUROLOGICAL: Awake and alert. No obvious cranial nerve deficits. Motor grossly within normal limits. Normal speech. PSYCHIATRIC: Appropriate mood and affect; insight and judgment normal. Data Data Last Documented VS Vital Signs Date Time Temp Pulse Resp B/P (MAP) Pulse Ox O2 Delivery O2 Flow Rate FiO2 01/14/18 14:35 97.1 83 18 143/75 (97) 97 Orders Orders Complete Blood Count With Diff (01/14/18 15:11) Comprehensive Metabolic Panel (01/14/18 15:11) Lipase (01/14/18 15:11) Urinalysis - C+S If Indicated (01/14/18 15:11) Ct Abd/Pel W Iv Contrast(Rout) (01/14/18 15:11) Iv Access Insert/Monitor (01/14/18 15:11) Morphine Inj (Morphine Inj) (01/14/18 15:15) Ondansetron Inj (Zofran Inj) (4/24/18 15:15) Sodium Chlor 0.9% 1000 Ml Inj (Ns 1000 M (01/14/18 15:11) Sodium Chloride 0.9% Flush (Ns Flush) (01/14/18 15:15) C Diff Toxin Pcr (01/14/18 16:16) Enteric Path (Stool) (01/14/18 16:16) Labs Laboratory Tests Test 01/14/18 15:35 White Blood Count 7.6 TH/MM3 Red Blood Count 3.98 MIL/MM3 Hemoglobin 11.9 GM/DL Hematocrit 35.1 % Mean Corpuscular Volume 88.1 FL Mean Corpuscular Hemoglobin 29.8 PG Mean Corpuscular Hemoglobin Concent 33.8 % Red Cell Distribution Width 14.0 % Platelet Count 262 TH/MM3 Mean Platelet Volume 7.4 FL Neutrophils (%) (Auto) 40.7 % Lymphocytes (%) (Auto) 45.6 % Monocytes (%) (Auto) 7.6 % Eosinophils (%) (Auto) 4.1 % Basophils (%) (Auto) 2.0 % Neutrophils # (Auto) 3.1 TH/MM3 Lymphocytes # (Auto) 3.5 TH/MM3 Monocytes # (Auto) 0.6 TH/MM3 Eosinophils # (Auto) 0.3 TH/MM3 Basophils # (Auto) 0.1 TH/MM3 CBC Comment DIFF FINAL Differential Comment Blood Urea Nitrogen 19 MG/DL Creatinine 1.07 MG/DL Random Glucose 113 MG/DL Total Protein 7.3 GM/DL Albumin 4.0 GM/DL Calcium Level 8.8 MG/DL Alkaline Phosphatase 103 U/L Aspartate Amino Transf (AST/SGOT) 10 U/L Alanine Aminotransferase (ALT/SGPT) 21 U/L Total Bilirubin 0.1 MG/DL Sodium Level 140 MEQ/L Potassium Level 4.3 MEQ/L Chloride Level 106 MEQ/L Carbon Dioxide Level 24.4 MEQ/L Anion Gap 10 MEQ/L Estimat Glomerular Filtration Rate 52 ML/MIN Lipase 149 U/L MDM Medical Decision Making Medical Screen Exam Complete: Yes Emergency Medical Condition: Yes Differential Diagnosis Differential diagnosis of abdominal pain includes but is not limited to gastritis, pancreatitis, hepatitis, gastroenteritis, constipation, urinary retention, peptic ulcer disease, diverticulitis or appendicitis Narrative Course This patient presents with left lower quadrant abdominal pain. She has associated nausea and loose stools. Will be evaluated for possible diverticulitis. I will add stool studies because of her complaint of loose stools for the last several weeks as well as incontinence of stool while sleeping. In the meantime, she will be treated with IV fluids and IV morphine and Zofran. CBC & BMP Diagram 01/14/18 15:35 Total Protein 7.3, Albumin 4.0, Calcium Level 8.8, Alkaline Phosphatase 103, Aspartate Amino Transf (AST/SGOT) 10 L, Alanine Aminotransferase (ALT/SGPT) 21, Total Bilirubin 0.[address] and stool studies are pending. She has not yet stooled. If she does not stool while she is here, the stool studies can be canceled. Diagnosis Primary Impression: Abdominal pain Qualified Codes: R10.30 - Lower abdominal pain, unspecified Additional Impression: Diarrhea Qualified Codes: R19.7 - Diarrhea, unspecified Condition: Stable Megha Suarez MD Jan 14, 2018 16:16
[2018-01-14 16:41] LABS: AST (GOT) 10 U/L (15-37); BICARBONATE 24.4 MEQ/L (21.0-32.0); BLOOD UREA NITROGEN 19 MG/DL (7-18); CALCIUM 8.8 MG/DL (8.5-10.1); CHLORIDE 106 MEQ/L (98-107); CREATININE 1.07 MG/DL (0.50-1.00); GLOMERULAR FILTRATION RATE 52 ML/MIN (>89); GLUCOSE,RANDOM 113 MG/DL (74-106); SODIUM (NA) 140 MEQ/L (136-145)
[2018-01-14 16:42] LABS: ALT (GPT) 21 U/L (10-53)
[2018-01-14 16:44] LABS: ALKALINE PHOSPHATASE 103 U/L (45-117); TOTAL BILIRUBIN ADULT 0.1 MG/DL (0.2-1.0); TOTAL PROTEIN 7.3 GM/DL (6.4-8.2)
--- NOTE | 2018-01-14 17:50 | PD ---
Physical Exam Time Seen by Provider: 17:48 Narrative Received report from Dr. Suarez at change of shift. See her note for initial history and physical. Data Data Last Documented VS Vital Signs Date Time Temp Pulse Resp B/P (MAP) Pulse Ox O2 Delivery O2 Flow Rate FiO2 01/14/18 14:35 97.1 83 18 143/75 (97) 97 Orders Orders Complete Blood Count With Diff (01/14/18 15:11) Comprehensive Metabolic Panel (01/14/18 15:11) Lipase (01/14/18 15:11) Urinalysis - C+S If Indicated (01/14/18 15:11) Ct Abd/Pel W Iv Contrast(Rout) (01/14/18 15:11) Iv Access Insert/Monitor (01/14/18 15:11) Morphine Inj (Morphine Inj) (01/14/18 15:15) Ondansetron Inj (Zofran Inj) (01/14/18 15:15) Sodium Chlor 0.9% 1000 Ml Inj (Ns 1000 M (01/14/18 15:11) Sodium Chloride 0.9% Flush (Ns Flush) (01/14/18 15:15) Iohexol 350 Inj (Omnipaque 350 Inj) (01/14/18 18:04) Ketorolac Inj (Toradol Inj) (01/14/18 18:45) Urine Culture (01/14/18 18:30) Ed Discharge Order (01/14/18 20:04) Labs Laboratory Tests Test 01/14/18 15:35 01/14/18 18:30 White Blood Count 7.6 TH/MM3 Red Blood Count 3.98 MIL/MM3 Hemoglobin 11.9 GM/DL Hematocrit 35.1 % Mean Corpuscular Volume 88.1 FL Mean Corpuscular Hemoglobin 29.8 PG Mean Corpuscular Hemoglobin Concent 33.8 % Red Cell Distribution Width 14.0 % Platelet Count 262 TH/MM3 Mean Platelet Volume 7.4 FL Neutrophils (%) (Auto) 40.7 % Lymphocytes (%) (Auto) 45.6 % Monocytes (%) (Auto) 7.6 % Eosinophils (%) (Auto) 4.1 % Basophils (%) (Auto) 2.0 % Neutrophils # (Auto) 3.1 TH/MM3 Lymphocytes # (Auto) 3.5 TH/MM3 Monocytes # (Auto) 0.6 TH/MM3 Eosinophils # (Auto) 0.3 TH/MM3 Basophils # (Auto) 0.1 TH/MM3 CBC Comment DIFF FINAL Differential Comment Blood Urea Nitrogen 19 MG/DL Creatinine 1.07 MG/DL Random Glucose 113 MG/DL Total Protein 7.3 GM/DL Albumin 4.0 GM/DL Calcium Level 8.8 MG/DL Alkaline Phosphatase 103 U/L Aspartate Amino Transf (AST/SGOT) 10 U/L Alanine Aminotransferase (ALT/SGPT) 21 U/L Total Bilirubin 0.1 MG/DL Sodium Level 140 MEQ/L Potassium Level 4.3 MEQ/L Chloride Level 106 MEQ/L Carbon Dioxide Level 24.4 MEQ/L Anion Gap 10 MEQ/L Estimat Glomerular Filtration Rate 52 ML/MIN Lipase 149 U/L Urine Color COLORLESS Urine Turbidity HAZY Urine pH 7.0 Urine Specific [place] 1.006 Urine Protein NEG mg/dL Urine Glucose (UA) NEG mg/dL Urine Ketones NEG mg/dL Urine Occult Blood NEG Urine Nitrite NEG Urine Bilirubin NEG Urine Urobilinogen LESS THAN 2.0 MG/DL Urine Leukocyte Esterase TRACE Urine RBC 1 /hpf Urine WBC 4 /hpf Urine Squamous Epithelial Cells 31 /hpf Urine Bacteria MOD /hpf Microscopic Urinalysis Comment CULTURE INDICATED MDM Supervised Visit with AMELIA: No Narrative Course Received report from Dr. Suarez at change of shift. See her note for initial history and physical. 174: CBC unremarkable. BUN 19, Creatinine 1.07, GFR 52. Otherwise CMP unremarkable. 9: CT abdomen/pelvis conclude: Abdomen/Pelvis CT 01/14/18 1511 Signed Impressions: Service Date/Time: Sunday, January 14, 2018 17:56 - CONCLUSION: 1. No acute abnormality demonstrated. 2. Florid and diffuse diverticulosis of the colon but no evidence of acute diverticulitis. Tigre Beauchamp MD CT findings discussed with the patient. Patient still complaining of left lower quadrant abdominal pain. Toradol ordered. Urinalysis pending. 1899: Report given to Dr. mendoza at the end of my shift. See his note for final patient disposition. Diagnosis Primary Impression: Abdominal pain Qualified Codes: R10.30 - Lower abdominal pain, unspecified Additional Impression: Diarrhea Qualified Codes: R19.7 - Diarrhea, unspecified Condition: Stable Yessenia Smith [facility] Jan 14, 2018 17:50
[2018-01-14] MEDS ORDERED: IOHEXOL 350 MG/ML 10 ML VIAL (for RAD DIAG) IVCONTRAST ONE (18:04)
--- NOTE | 2018-01-14 18:33 | RADRPT ---
EXAM DATE/TIME: 01/14/2018 17:56 [facility] COMPARISON: No previous studies available for comparison. INDICATIONS : Left lower abdominal pain IV CONTRAST: 97 cc Omnipaque 350 (iohexol) IV ORAL CONTRAST: No oral contrast ingested. RADIATION DOSE: 13.44 CTDIvol (mGy) MEDICAL HISTORY : Cardiovascular disease. Fibromyalgia, diabetes SURGICAL HISTORY : section. Appendectomy.Cholecystectomy. ENCOUNTER: Initial ACUITY: 1 day PAIN SCALE: 10/10 LOCATION: Left lower quadrant TECHNIQUE: Volumetric scanning of the abdomen and pelvis was performed. Using automated exposure control and ad justment of the mA and/or kV according to patient size, radiation dose was kept as low as reasonably achievable to obtain optimal diagnostic quality images. DICOM format image data is available electro nically for review and comparison. FINDINGS: LOWER LUNGS: The visualized lower lungs are clear. LIVER: Homogeneous density without lesion. There is no dilation of the biliary tree. No calcified gallston es. SPLEEN: Normal size without lesion. PANCREAS: Within normal limits. KIDNEYS: Normal in size and shape. There is no mass, stone or hydronephrosis. ADRENAL GLANDS: Within normal limits. VASCULAR: There is no aortic aneurysm. BOWEL/MESENTERY: There is diffuse diverticulosis. No perceptible acute inflammatory changes are demonstrated. There is no bowel obstruction, free air or abscess. ABDOMINAL WALL: Within normal limits. RETROPERITONEUM: There is no lymphadenopathy. BLADDER: No wall thickening or mass. REPRODUCTIVE: Previous hysterectomy. INGUINAL: There is no lymphadenopathy or hernia. MUSCULOSKELETAL: No acute bony abnormality demonstrated. CONCLUSION: 1. No acute abnormality demonstrated. 2. Florid and diffuse diverticulosis of the colon but no evidence of acute diverticulitis. Tigre Beauchamp MD on January 14, 2018 at 18:28 Board Certified Radiologist. This report was verified electronically.
[2018-01-14] MEDS ORDERED: KETOROLAC TROMETHAMINE 30 MG/ML (IVP) VIAL IV PUSH ONE (18:45)
[2018-01-14 19:20] LABS: BACTERIA, URINE MOD /hpf; BILIRUBIN, URINE NEG (NEG); BLOOD, URINE NEG (NEG); GLUCOSE,URINE NEG (NEG); KETONE, URINE NEG (NEG); NITRITE,URINE NEG (NEG); SQUAMOUS EPITHELIAL CELL URINE 31 /hpf (0-5); URINE COLOR COLORLESS (YELLW/STRAW); URINE LEUKOCYTE ESTERASE TRACE (NEG)
--- NOTE | 2018-01-14 20:04 | PD ---
Data Data Last Documented VS Vital Signs Date Time Temp Pulse Resp B/P (MAP) Pulse Ox O2 Delivery O2 Flow Rate FiO2 01/14/18 14:35 97.1 83 18 143/75 (97) 97 Orders Orders Complete Blood Count With Diff (01/14/18 15:11) Comprehensive Metabolic Panel (01/14/18 15:11) Lipase (01/14/18 15:11) Urinalysis - C+S If Indicated (01/14/18 15:11) Ct Abd/Pel W Iv Contrast(Rout) (01/14/18 15:11) Iv Access Insert/Monitor (01/14/18 15:11) Morphine Inj (Morphine Inj) (01/14/18 15:15) Ondansetron Inj (Zofran Inj) (01/14/18 15:15) Sodium Chlor 0.9% 1000 Ml Inj (Ns 1000 M (01/14/18 15:11) Sodium Chloride 0.9% Flush (Ns Flush) (01/14/18 15:15) C Diff Toxin Pcr (01/14/18 16:16) Enteric Path (Stool) (01/14/18 16:16) Iohexol 350 Inj (Omnipaque 350 Inj) (01/14/18 18:04) Ketorolac Inj (Toradol Inj) (01/14/18 18:45) Urine Culture (01/14/18 18:30) Labs Laboratory Tests Test 01/14/18 15:35 01/14/18 18:30 White Blood Count 7.6 TH/MM3 Red Blood Count 3.98 MIL/MM3 Hemoglobin 11.9 GM/DL Hematocrit 35.1 % Mean Corpuscular Volume 88.1 FL Mean Corpuscular Hemoglobin 29.8 PG Mean Corpuscular Hemoglobin Concent 33.8 % Red Cell Distribution Width 14.0 % Platelet Count 262 TH/MM3 Mean Platelet Volume 7.4 FL Neutrophils (%) (Auto) 40.7 % Lymphocytes (%) (Auto) 45.6 % Monocytes (%) (Auto) 7.6 % Eosinophils (%) (Auto) 4.1 % Basophils (%) (Auto) 2.0 % Neutrophils # (Auto) 3.1 TH/MM3 Lymphocytes # (Auto) 3.5 TH/MM3 Monocytes # (Auto) 0.6 TH/MM3 Eosinophils # (Auto) 0.3 TH/MM3 Basophils # (Auto) 0.1 TH/MM3 CBC Comment DIFF FINAL Differential Comment Blood Urea Nitrogen 19 MG/DL Creatinine 1.07 MG/DL Random Glucose 113 MG/DL Total Protein 7.3 GM/DL Albumin 4.0 GM/DL Calcium Level 8.8 MG/DL Alkaline Phosphatase 103 U/L Aspartate Amino Transf (AST/SGOT) 10 U/L Alanine Aminotransferase (ALT/SGPT) 21 U/L Total Bilirubin 0.1 MG/DL Sodium Level 140 MEQ/L Potassium Level 4.3 MEQ/L Chloride Level 106 MEQ/L Carbon Dioxide Level 24.4 MEQ/L Anion Gap 10 MEQ/L Estimat Glomerular Filtration Rate 52 ML/MIN Lipase 149 U/L Urine Color COLORLESS Urine Turbidity HAZY Urine pH 7.0 Urine Specific Pep 1.006 Urine Protein NEG mg/dL Urine Glucose (UA) NEG mg/dL Urine Ketones NEG mg/dL Urine Occult Blood NEG Urine Nitrite NEG Urine Bilirubin NEG Urine Urobilinogen LESS THAN 2.0 MG/DL Urine Leukocyte Esterase TRACE Urine RBC 1 /hpf Urine WBC 4 /hpf Urine Squamous Epithelial Cells 31 /hpf Urine Bacteria MOD /hpf Microscopic Urinalysis Comment CULTURE INDICATED MDM Supervised Visit with AMELIA: No Narrative Course This case is checked out to me at 7 PM by the nurse practitioner Yessenia. I reviewed the entirety of the workup And evaluated the patient. She has left lower quadrant pains. Lab studies and urine are clean. CT of the abdomen and pelvis shows nothing emergent or acute. She has diffuse diverticulosis without diverticulitis Stable for outpatient follow-up Diagnosis Primary Impression: Abdominal pain Qualified Codes: R10.30 - Lower abdominal pain, unspecified Additional Impression: Diarrhea Qualified Codes: R19.7 - Diarrhea, unspecified Additional Instruction: The patient was advised to follow up with their physician and return if they worsen. Med/Other Pt SpecificInfo: Other Disposition: 01 DISCHARGE HOME Condition: Stable Kali Hernandez MD Jan 14, 2018 20:04
== END 2018-01-14 20:20 | disposition home or self-care (01) ==
LOC: NEPD 14:29
DX: R10.32 Left lower quadrant pain (principal); R19.7 Diarrhea, unspecified; R11.0 Nausea; K57.30 Diverticulosis of large intestine without perforation or abscess without bleeding; I10 Essential (primary) hypertension; M79.7 Fibromyalgia
CPT/HCPCS: 74177; 80053; 81001; 83690; 85025; 87077; 87086; 87186; 96361; 96374; 96375; 99284; J1885; J2270; J2405; J7030; Q9967

== ENCOUNTER 2018-01-20 07:39 | Emergency (ER) | payer BC ==
[~2018-01-20] VITALS: Ht 149.9 cm; Wt 72.5 kg
[2018-01-20 07:47] VITALS: BP 180/80; PULSE 76; RESP 19; TEMP 98.5; O2SAT 98
[2018-01-20] MEDS ORDERED: GUAI100S5 PO (08:36)
[2018-01-20] MEDS ORDERED: AZIT250T3 PO (08:36)
--- NOTE | 2018-01-20 08:37 | PD ---
HPI Chief Complaint: Cold / Flu Symptoms Time Seen by Provider: 08:27 Travel History International Travel<30 days: No Contact w/Intl Traveler<30days: No Traveled to known affect area: No History of Present Illness HPI 62-year-old female complains of cough and body aches and pains as well as occasional incontinence with coughing. The sore throat is reported making the coughing more painful. Symptoms are 2 days old. She reports sick contacts. She spent a day at the beach which did not help. The [place] Perles were not helpful. Associated symptoms include nausea. The low back hurts after coughing spells. PFSH Past Medical History Hx Anticoagulant Therapy: Yes (81 ASA) Arthritis: No Asthma: No Autoimmune Disease: No Anxiety: No Depression: No Heart Rhythm Problems: No Cancer: No Cardiac Catheterization: Yes Cardiovascular Problems: Yes High Cholesterol: No Chemotherapy: No Chest Pain: No Congestive Heart Failure: No COPD: No Cerebrovascular Accident: No Diabetes: No (doing blood sugars) Diminished Hearing: No Diverticulitis: Yes Endocrine: No Fibromyalgia: Yes GERD: No Genitourinary: No Hiatal Hernia: No Hypertension: Yes Immune Disorder: No Kidney Stones: No Musculoskeletal: Yes Neurologic: Yes (back pain is chronic, now she fell and it hurts more) Psychiatric: No Reproductive: No Respiratory: No Migraines: No Radiation Therapy: No Renal Failure: No Seizures: No (seizure potential, patient made aware) Sickle Cell Disease: No Sleep Apnea: No Thyroid Disease: No Ulcer: No Past Surgical History Abdominal Surgery: No AICD: No Appendectomy: Yes Arteriovenous Shunt: No Cardiac Surgery: No Section: Yes Coronary Stent: Yes (07/22/2017) Ear Surgery: No Endocrine Surgery: No Eye Surgery: No Genitourinary Surgery: No Gynecologic Surgery: No Hysterectomy: Yes Insulin Pump: No Joint Replacement: No Oral Surgery: No Pacemaker: No Thoracic Surgery: No Social History Alcohol Use: No Tobacco Use: No Substance Use: No Allergies-Medications (Allergen,Severity, Reaction): Coded Allergies: No Known Allergies (Verified , 01/20/18) Reported Meds & Prescriptions Reported Meds & Active Scripts Active Metoprolol Tartrate 25 Mg Tab 25 Mg PO BID Aspirin Low Strength (Aspirin) 81 Mg Chew 81 Mg PO DAILY Lisinopril 5 Mg Tab 5 Mg PO DAILY Lipitor (Atorvastatin Calcium) 10 Mg Tab 10 Mg PO HS Effient (Prasugrel) 10 Mg Tab 10 Mg PO DAILY Reported Keflex (Cephalexin) 500 Mg Cap 500 Mg PO Q12H Trazodone (Trazodone HCl) 100 Mg Tablet 100 Mg PO HS Remeron (Mirtazapine) 15 Mg Tab 15 Mg PO HS Gabapentin 800 Mg Tab 800 Mg PO QID Review of Systems Except as stated in HPI: all other systems reviewed are Neg General / Constitutional: No: Fever Physical Exam Narrative GENERAL: 62-year-old female pleasant well-nourished well-developed, frequent cough Vital Signs Date Time Temp Pulse Resp B/P (MAP) Pulse Ox O2 Delivery O2 Flow Rate FiO2 01/20/18 07:47 98.5 76 19 180/80 (113) 98 SKIN: Warm and dry. HEAD: Atraumatic. Normocephalic. EYES: Pupils equal and round. No scleral icterus. No injection or drainage. ENT: No nasal bleeding or discharge. Mucous membranes pink and moist. NECK: Trachea midline. No JVD. CARDIOVASCULAR: Regular rate and rhythm. RESPIRATORY: Wheezing present bilaterally. No significant tachypnea GASTROINTESTINAL: Abdomen soft, non-tender, nondistended. Hepatic and splenic margins not palpable. MUSCULOSKELETAL: Extremities without clubbing, cyanosis, or edema. No obvious deformities. NEUROLOGICAL: Awake and alert. No obvious cranial nerve deficits. Motor grossly within normal limits. Five out of 5 muscle strength in the arms and legs. Normal speech. PSYCHIATRIC: Appropriate mood and affect; insight and judgment normal. Data Data Last Documented VS Vital Signs Date Time Temp Pulse Resp B/P (MAP) Pulse Ox O2 Delivery O2 Flow Rate FiO2 01/20/18 08:48 85 19 140/71 (94) 99 Room Air 01/20/18 08:45 21 01/20/18 07:47 98.5 Orders Orders Complete Blood Count With Diff (01/20/18 08:32) Basic Metabolic Panel (Bmp) (01/20/18 08:32) Iv Access Insert/Monitor (01/20/18 08:32) Electrocardiogram (01/20/18 08:32) Ecg Monitoring (01/20/18 08:32) Oximetry (01/20/18 08:32) Chest, Single Ap (01/20/18 08:32) Sodium Chloride 0.9% Flush (Ns Flush) (01/20/18 08:45) Methylprednisolone So Succ Inj (Solumedr (01/20/18 08:45) Albuterol-Ipratropium Neb (Duoneb Neb) (01/20/18 08:45) Guaifen-Cod 200-20 Mg/10ml Liq (Robituss (01/20/18 08:45) Sodium Chlor 0.9% 1000 Ml Inj (Ns 1000 M (01/20/18 08:45) Acetaminophen (Tylenol) (01/20/18 08:45) Urinalysis - C+S If Indicated (01/20/18 08:32) Ondansetron Inj (Zofran Inj) (01/20/18 09:00) Ed Discharge Order (01/20/18 09:57) Labs Laboratory Tests Test 01/20/18 09:20 White Blood Count 11.4 TH/MM3 Red Blood Count 4.26 MIL/MM3 Hemoglobin 12.6 GM/DL Hematocrit 37.4 % Mean Corpuscular Volume 87.9 FL Mean Corpuscular Hemoglobin 29.6 PG Mean Corpuscular Hemoglobin Concent 33.6 % Red Cell Distribution Width 13.8 % Platelet Count 262 TH/MM3 Mean Platelet Volume 6.9 FL Neutrophils (%) (Auto) 64.1 % Lymphocytes (%) (Auto) 26.8 % Monocytes (%) (Auto) 5.7 % Eosinophils (%) (Auto) 2.5 % Basophils (%) (Auto) 0.9 % Neutrophils # (Auto) 7.3 TH/MM3 Lymphocytes # (Auto) 3.1 TH/MM3 Monocytes # (Auto) 0.6 TH/MM3 Eosinophils # (Auto) 0.3 TH/MM3 Basophils # (Auto) 0.1 TH/MM3 CBC Comment DIFF FINAL Differential Comment Blood Urea Nitrogen 20 MG/DL Creatinine 1.08 MG/DL Random Glucose 107 MG/DL Calcium Level 8.9 MG/DL Sodium Level 140 MEQ/L Potassium Level 4.4 MEQ/L Chloride Level 109 MEQ/L Carbon Dioxide Level 20.9 MEQ/L Anion Gap 10 MEQ/L Estimat Glomerular Filtration Rate 51 ML/MIN MDM Medical Decision Making Medical Screen Exam Complete: Yes Emergency Medical Condition: Yes Medical Record Reviewed: Yes Differential Diagnosis Bronchitis, COPD, asthma, pneumonia Narrative Course Overall presentation is somewhat nonspecific. Bronchitis, atypical subclinical pneumonia, nonspecific viral syndrome are considered reasonable. Scripts as below. Last Impressions Chest X-Ray 01/20/18 0832 Signed Impressions: Service Date/Time: Saturday, January 20, 2018 08:51 - CONCLUSION: No acute disease. Tigre Argueta MD CBC & BMP Diagram 01/20/18 09:20 Calcium Level 8.9 Tn 0.03 EKG: sinus, rate 82, normal axis/intervals Diagnosis Primary Impression: Bronchitis Referrals: Primary Care Physician Med/Other Pt SpecificInfo: Prescription(s) given Disposition: 01 DISCHARGE HOME Condition: Stable Jason Flores MD Jan 20, 2018 08:36
[2018-01-20] MEDS: RESP: ALBUTEROL 2.5 MG/IPRATROPIUM 0.5 MG NEB (SCH) INH (08:43)
[2018-01-20 08:45] VITALS: O2SAT 98
[2018-01-20] MEDS ORDERED: guaiFENesin/CODEINE SYRUP 200 MG/20 MG/10 ML CUP PO ONE (08:45)
[2018-01-20] MEDS ORDERED: methylPREDNISolone SOD SUCC 125 MG/2 ML VIAL IV PUSH ONE (08:45)
[2018-01-20] MEDS ORDERED: SODIUM CHLOR 0.9% 1000 ML INJ 1,000 ML IV ONE (08:45)
[2018-01-20] MEDS ORDERED: SODIUM CHLORIDE 0.9% FLUSH 10 ML FLUSH IVF PRN (08:45)
[2018-01-20] MEDS ORDERED: ACETAMINOPHEN 500 MG CPLT PO ONE (08:45)
[2018-01-20 08:48] VITALS: BP 140/71; PULSE 85; RESP 19; O2SAT 99
[2018-01-20] MEDS ORDERED: ONDANSETRON HCL 4 MG/2 ML VIAL IV PUSH ONE (09:00)
--- NOTE | 2018-01-20 09:04 | RADRPT ---
EXAM DATE/TIME: 01/20/2018 08:51 [facility] COMPARISON: CHEST SINGLE AP, December 25, 2017, 20:58. INDICATIONS : Patient states shortness of breath and back pain. MEDICAL HISTORY : Myocardial infarction. Hypertension SURGICAL HISTORY : Coronary artery stent. ENCOUNTER: Initial ACUITY: 1 day PAIN SCORE: 0/10 LOCATION: Bilateral chest FINDINGS: A single view of the chest demonstrates the lungs to be symmetrically aerated without evidence of mas s, infiltrate or effusion. The cardiomediastinal contours are unremarkable. Osseous structures are intact. CONCLUSION: No acute disease. Tigre Argueta MD on January 20, 2018 at 9:02 Board Certified Radiologist. This report was verified electronically.
[2018-01-20] MEDS ORDERED: CEPH-460 PO (09:11)
[2018-01-20 09:35] LABS: AUTOMATED NEUTROPHIL # 7.3 TH/MM3 (1.8-7.7); BASOPHIL # 0.1 TH/MM3 (0-0.2); BASOPHIL % 0.9 % (0.0-2.0); EOSINOPHIL # 0.3 TH/MM3 (0-0.4); EOSINOPHIL % 2.5 % (0.0-4.0); HEMATOCRIT 37.4 % (35.0-46.0); HEMOGLOBIN 12.6 GM/DL (11.6-15.3); LYMPH % 26.8 % (9.0-44.0); LYMPHOCYTE # 3.1 TH/MM3 (1.0-4.8); MEAN CELL VOLUME 87.9 FL (80.0-100.0); MEAN CORPUSCULAR HEMOGLOBIN 29.6 PG (27.0-34.0); MEAN CORPUSCULAR HGB CONC 33.6 % (32.0-36.0); MEAN PLATELET VOLUME 6.9 FL (7.0-11.0); MONO % 5.7 % (0.0-8.0); MONOCYTE # 0.6 TH/MM3 (0-0.9); NEUT % 64.1 % (16.0-70.0); PLATELET COUNT 262 TH/MM3 (150-450); RED BLOOD COUNT 4.26 MIL/MM3 (4.00-5.30); RED CELL DISTRIBUTION WIDTH 13.8 % (11.6-17.2); WHITE BLOOD COUNT 11.4 TH/MM3 (4.0-11.0)
[2018-01-20 09:46] LABS: BICARBONATE 20.9 MEQ/L (21.0-32.0); CALCIUM 8.9 MG/DL (8.5-10.1); CREATININE 1.08 MG/DL (0.50-1.00)
--- NOTE | 2018-01-20 20:40 | EKG ---
Date Performed: 01/20/2018 Time Performed: 09:01:07 PTAGE: 62 years EKG: Sinus rhythm NORMAL ECG PREVIOUS TRACING : 12/25/2017 20.49 Since the previous tracing, no significant change noted DOCTOR: Jeff Weaver Interpretating Date/Time 01/20/2018 20:40:26
== END 2018-01-20 11:17 | disposition home or self-care (01) ==
LOC: NEPE 07:39
DX: J40 Bronchitis, not specified as acute or chronic (principal); I10 Essential (primary) hypertension
CPT/HCPCS: 71045; 80048; 85025; 93005; 94640; 94664; 96361; 96374; 96375; 99285; J2405; J2930; J7030

== ENCOUNTER 2018-01-28 12:28 | Emergency (ER) | payer BC ==
[~2018-01-28] VITALS: Ht 149.9 cm; Wt 68.0 kg
[~2018-01-28 12:28] MED LIST changes: +CEPH-460 PO; -ISOS10TA3 PO
[2018-01-28 12:38] VITALS: BP 146/63; PULSE 62; RESP 18; TEMP 98.5; O2SAT 98
[2018-01-28 13:05] VITALS: BP 134/78; PULSE 78; RESP 18; O2SAT 98
--- NOTE | 2018-01-28 14:52 | PD ---
HPI Chief Complaint: Neuro Symptoms/ Deficits Time Seen by Provider: 14:38 Travel History International Travel<30 days: No Contact w/Intl Traveler<30days: No Traveled to known affect area: No History of Present Illness HPI Patient comes in complaining of burning sensation to her lower face and to her left forearm. Patient describes it as a fire sensation, hot piercing tingling sensation, rated 9 out of 10, persistent, and ongoing for the past 12 hours. Patient stated that she attempted to call her neurologist and instead her office told her to come to the ER. Patient has Dr. RICHEY as the neurologist. Patient was recently seen and placed on Z-Jozef and Tussionex for bronchitis. Patient denies any associated factors such as headache, rash, fever, runny nose , sore throat, nausea, vomiting, diarrhea at this time however she does continue to have a dry cough. No known drug allergy Past medical history significant for seizures, chronic back pain, apparent [place] with cardiac catheterization and stent placement. Diverticulitis, appendectomy , hysterectomy, C-sections, and history of fibromyalgia PFSH Past Medical History Hx Anticoagulant Therapy: Yes (81 ASA) Arthritis: No Asthma: No Autoimmune Disease: No Anxiety: No Depression: No Heart Rhythm Problems: No Cancer: No Cardiac Catheterization: Yes Cardiovascular Problems: Yes High Cholesterol: No Chemotherapy: No Chest Pain: No Congestive Heart Failure: No COPD: No Cerebrovascular Accident: No Diabetes: No (doing blood sugars) Diminished Hearing: No Diverticulitis: Yes Endocrine: No Fibromyalgia: Yes GERD: No Genitourinary: No Hiatal Hernia: No Hypertension: Yes Immune Disorder: No Kidney Stones: No Musculoskeletal: Yes Neurologic: Yes (CHRONIC BACK PAIN) Psychiatric: No Reproductive: No Respiratory: No Migraines: No Myocardial Infarction: Yes Radiation Therapy: No Renal Failure: No Sickle Cell Disease: No Sleep Apnea: No Thyroid Disease: No Ulcer: No ?: Not : 2 Para: 2 Miscarriage: 0 : 0 Past Surgical History Abdominal Surgery: No AICD: No Appendectomy: Yes Arteriovenous Shunt: No Cardiac Surgery: No Section: Yes Coronary Stent: Yes (07/22/2017) Ear Surgery: No Endocrine Surgery: No Eye Surgery: No Genitourinary Surgery: No Gynecologic Surgery: No Hysterectomy: Yes Insulin Pump: No Joint Replacement: No Oral Surgery: No Pacemaker: No Thoracic Surgery: No Other Surgery: Yes (BREAST REDUCTION ) Social History Alcohol Use: No Tobacco Use: No Substance Use: No Allergies-Medications (Allergen,Severity, Reaction): Coded Allergies: No Known Allergies (Verified , 01/28/18) Reported Meds & Prescriptions Reported Meds & Active Scripts Active Metoprolol Tartrate 25 Mg Tab 25 Mg PO BID Aspirin Low Strength (Aspirin) 81 Mg Chew 81 Mg PO DAILY Lisinopril 5 Mg Tab 5 Mg PO DAILY Lipitor (Atorvastatin Calcium) 10 Mg Tab 10 Mg PO HS Effient (Prasugrel) 10 Mg Tab 10 Mg PO DAILY Reported Keflex (Cephalexin) 500 Mg Cap 500 Mg PO Q12H Trazodone (Trazodone HCl) 100 Mg Tablet 100 Mg PO HS Remeron (Mirtazapine) 15 Mg Tab 15 Mg PO HS Gabapentin 800 Mg Tab 800 Mg PO QID Review of Systems General / Constitutional: No: Fever Eyes: No: Visual changes HENT: No: Headaches Cardiovascular: No: Chest Pain or Discomfort Respiratory: No: Shortness of Breath Gastrointestinal: No: Abdominal Pain Genitourinary: No: Dysuria Musculoskeletal: No: Pain Skin: No Rash Neurologic: Positive: Paresthesia, Sensory Disturbance Psychiatric: No: Depression Endocrine: No: Polydipsia Hematologic/Lymphatic: No: Easy Bruising Physical Exam Narrative GENERAL: SKIN: Warm and dry. HEAD: Atraumatic. Normocephalic. EYES: Pupils equal and round. No scleral icterus. No injection or drainage. ENT: No nasal bleeding or discharge. Mucous membranes pink and moist. NECK: Trachea midline. No JVD. CARDIOVASCULAR: Regular rate and rhythm. RESPIRATORY: No accessory muscle use. Clear to auscultation. Breath sounds equal bilaterally. GASTROINTESTINAL: Abdomen soft, non-tender, nondistended. MUSCULOSKELETAL: Extremities without clubbing, cyanosis, or edema. No obvious deformities. NEUROLOGICAL: Awake and alert. No obvious cranial nerve deficits. Motor grossly within normal limits. Five out of 5 muscle strength in the arms and legs. Normal speech. PSYCHIATRIC: Appropriate mood and affect; insight and judgment normal. Data Data Last Documented VS Vital Signs Date Time Temp Pulse Resp B/P (MAP) Pulse Ox O2 Delivery O2 Flow Rate FiO2 01/28/18 16:00 80 18 132/74 (93) 98 Room Air 01/28/18 12:38 98.5 Orders Orders Electrocardiogram (01/28/18 ) Complete Blood Count With Diff (01/28/18 14:38) Comprehensive Metabolic Panel (01/28/18 14:38) Ckmb (Isoenzyme) Profile (01/28/18 14:38) Troponin I (01/28/18 14:38) B-Type Natriuretic Peptide (01/28/18 14:38) Lipase (01/28/18 14:38) Thyroid Stimulating Hormone (01/28/18 14:38) Chest, Single Ap (01/28/18 14:38) Ct Brain W/O Iv Contrast(Rout) (01/28/18 14:38) Drug Screen, Random Urine (01/28/18 14:38) Alcohol (Ethanol) (01/28/18 14:38) Salicylates (Aspirin) (01/28/18 14:38) Tylenol (Acetaminophen) (01/28/18 14:38) Tramadol (Ultram) (01/28/18 18:00) Ciprofloxacin (Cipro) (01/28/18 18:00) Labs Laboratory Tests Test 01/28/18 13:25 White Blood Count 8.6 TH/MM3 Red Blood Count 3.81 MIL/MM3 Hemoglobin 11.5 GM/DL Hematocrit 33.7 % Mean Corpuscular Volume 88.4 FL Mean Corpuscular Hemoglobin 30.1 PG Mean Corpuscular Hemoglobin Concent 34.1 % Red Cell Distribution Width 13.6 % Platelet Count 285 TH/MM3 Mean Platelet Volume 7.3 FL Neutrophils (%) (Auto) 42.0 % Lymphocytes (%) (Auto) 45.1 % Monocytes (%) (Auto) 7.5 % Eosinophils (%) (Auto) 4.2 % Basophils (%) (Auto) 1.2 % Neutrophils # (Auto) 3.6 TH/MM3 Lymphocytes # (Auto) 3.9 TH/MM3 Monocytes # (Auto) 0.6 TH/MM3 Eosinophils # (Auto) 0.4 TH/MM3 Basophils # (Auto) 0.1 TH/MM3 CBC Comment DIFF FINAL Differential Comment Blood Urea Nitrogen 15 MG/DL Creatinine 1.12 MG/DL Random Glucose 88 MG/DL Total Protein 7.1 GM/DL Albumin 3.6 GM/DL Calcium Level 8.4 MG/DL Alkaline Phosphatase 94 U/L Aspartate Amino Transf (AST/SGOT) 19 U/L Alanine Aminotransferase (ALT/SGPT) 22 U/L Total Bilirubin 0.2 MG/DL Sodium Level 140 MEQ/L Potassium Level 4.3 MEQ/L Chloride Level 106 MEQ/L Carbon Dioxide Level 23.3 MEQ/L Anion Gap 11 MEQ/L Estimat Glomerular Filtration Rate 49 ML/MIN Total Creatine Kinase 86 U/L Troponin I LESS THAN 0.02 NG/ML B-Type Natriuretic Peptide 28 PG/ML Lipase 214 U/L Thyroid Stimulating Hormone 3rd Gen 1.040 uIU/ML Salicylates Level LESS THAN 1.7 MG/DL Urine Opiates Screen NEG Acetaminophen Level LESS THAN 2.0 MCG/ML Urine Barbiturates Screen POS Urine Amphetamines Screen NEG Urine Benzodiazepines Screen NEG Urine Cocaine Screen NEG Urine Cannabinoids Screen NEG Ethyl Alcohol Level LESS THAN 3 MG/DL MDM Medical Decision Making Medical Screen Exam Complete: Yes Emergency Medical Condition: Yes Medical Record Reviewed: Yes Differential Diagnosis Intracranial hemorrhage versus paresthesia versus anemia versus electrolyte imbalance Narrative Course CBC shows no leukocytosis, very mild anemia of 11/33, no left shift, and platelet count of 285 Tox screen is negative for salicylates Tylenol amphetamines benzodiazepines cocaine marijuana and alcohol. The only positive finding is barbiturates screen was positive Electrolytes are all within normal limits, normal kidney liver pancreas function as well as TSH screening test. Negative beta natruretic peptide Negative first set of cardiac enzymes Chest x-ray read by radiologist as no acute disease CT head read by radiologist as no acute intracranial abnormality, fluid in the right sphenoid and maxillary sinus consistent with sinusitis. Patient was made aware of all these findings, the patient seem very disappointed that she did not receive any pain medication for her symptoms that she was describing. I stated to her that paresthesias, or burning sensation does not necessarily qualify soma for narcotic pain medication however he does qualify her for a thorough evaluation which I have done including CAT scan and blood work. The patient is advised to have a neurological continue work Diagnosis Primary Impression: Sinusitis Additional Impression: Paresthesia Referrals: Leticia Richey MD FOR FURTHER EVALUATION AND CARE. Patient Instructions: General Instructions, Paresthesia (ED), Sinusitis (GEN) Scripts Tramadol (Ultram) 50 Mg Tab 50 MG PO Q8H Y for PAIN, #12 TAB 0 Refills Prov: Vaibhav Ray MD 01/28/18 Guaifenesin-Codeine Liq (Guaifenesin AC Liq) 100-10 Mg/5 Ml Syrp 10 ML PO Q6H Y for COUGH, #180 BOTTLE 0 Refills Prov: Vaibhav Ray MD 01/28/18 Ciprofloxacin (Cipro) 500 Mg Tab 500 MG PO BID for Infection for 10 Days, #20 TAB 0 Refills Prov: Vaibhav Ray MD 01/28/18 Disposition: 01 DISCHARGE HOME Condition: Stable Vaibhav Ray MD January 28, 2018 14:52
--- NOTE | 2018-01-28 15:02 | RADRPT ---
EXAM DATE/TIME: 01/28/2018 14:44 [facility] COMPARISON: No previous studies available for comparison. INDICATIONS : Chest pain and skin burning. MEDICAL HISTORY : Cardiovascular disease. Fibromyalgia, diabetes SURGICAL HISTORY : section. Appendectomy. Cholecystectomy. ENCOUNTER: Initial ACUITY: 1 day PAIN SCORE: 10/10 LOCATION: Bilateral chest FINDINGS: A single view of the chest demonstrates the lungs to be symmetrically aerated without evidence of mas s, infiltrate or effusion. The cardiomediastinal contours are unremarkable. Osseous structures are intact. CONCLUSION: No acute disease. Blayne Watts MD on January 28, 2018 at 14:53 Board Certified Radiologist. This report was verified electronically.
--- NOTE | 2018-01-28 15:29 | RADRPT ---
EXAM DATE/TIME: 01/28/2018 15:07 [facility] COMPARISON: CT BRAIN W/O CONTRAST, December 25, 2017, 21:36. INDICATIONS : Headache. Left face and arm tingling. RADIATION DOSE: 35.14 CTDIvol (mGy) MEDICAL HISTORY : Cardiovascular disease. Coronary artery disease. SURGICAL HISTORY : Hysterectomy. ENCOUNTER: Initial ACUITY: 1 day PAIN SCALE: 0/10 LOCATION: cranial TECHNIQUE: Multiple contiguous axial images were obtained of the head. Using automated exposure control and adj ustment of the mA and/or kV according to patient size, radiation dose was kept as low as reasonably a chievable to obtain optimal diagnostic quality images. DICOM format image data is available electro nically for review and comparison. FINDINGS: CEREBRUM: Mild diffuse cerebral atrophy. The ventricles are normal for age. No evidence of midline shift, mass lesion, hemorrhage or acute infarction. No extra-axial fluid collections are seen. POSTERIOR FOSSA: The cerebellum and brainstem are intact. The 4th ventricle is midline. The cerebellopontine angle i s unremarkable. EXTRACRANIAL: The visualized portion of the orbits is intact. Small amount of fluid in the right sphenoid sinus and visualized right maxillary sinus. SKULL: The calvaria is intact. No evidence of skull fracture. CONCLUSION: 1. No acute intracranial abnormality. 2. Fluid in the right sphenoid and maxillary sinuses consistent with sinusitis. Quang Lopes MD on January 28, 2018 at 15:25 Board Certified Radiologist. This report was verified electronically.
[2018-01-28 15:41] LABS: AUTOMATED NEUTROPHIL # 3.6 TH/MM3 (1.8-7.7); BASOPHIL # 0.1 TH/MM3 (0-0.2); BASOPHIL % 1.2 % (0.0-2.0); EOSINOPHIL # 0.4 TH/MM3 (0-0.4); EOSINOPHIL % 4.2 % (0.0-4.0); HEMATOCRIT 33.7 % (35.0-46.0); HEMOGLOBIN 11.5 GM/DL (11.6-15.3); LYMPH % 45.1 % (9.0-44.0); LYMPHOCYTE # 3.9 TH/MM3 (1.0-4.8); MEAN CELL VOLUME 88.4 FL (80.0-100.0); MEAN CORPUSCULAR HEMOGLOBIN 30.1 PG (27.0-34.0); MEAN CORPUSCULAR HGB CONC 34.1 % (32.0-36.0); MEAN PLATELET VOLUME 7.3 FL (7.0-11.0); MONO % 7.5 % (0.0-8.0); MONOCYTE # 0.6 TH/MM3 (0-0.9); PLATELET COUNT 285 TH/MM3 (150-450); RED BLOOD COUNT 3.81 MIL/MM3 (4.00-5.30); RED CELL DISTRIBUTION WIDTH 13.6 % (11.6-17.2); WHITE BLOOD COUNT 8.6 TH/MM3 (4.0-11.0)
[2018-01-28 16:00] VITALS: BP 132/74; PULSE 80; RESP 18; O2SAT 98
[2018-01-28 16:08] LABS: ALBUMIN 3.6 GM/DL (3.4-5.0); BICARBONATE 23.3 MEQ/L (21.0-32.0); BLOOD UREA NITROGEN 15 MG/DL (7-18); CALCIUM 8.4 MG/DL (8.5-10.1); CHLORIDE 106 MEQ/L (98-107); GLUCOSE,RANDOM 88 MG/DL (74-106); SODIUM (NA) 140 MEQ/L (136-145)
[2018-01-28 16:17] LABS: ACETAMINOPHEN LESS THAN 2.0 MCG/ML (10.0-30.0); ALKALINE PHOSPHATASE 94 U/L (45-117); ALT (GPT) 22 U/L (10-53); AST (GOT) 19 U/L (15-37); CREATININE 1.12 MG/DL (0.50-1.00); GLOMERULAR FILTRATION RATE 49 ML/MIN (>89); TOTAL BILIRUBIN ADULT 0.2 MG/DL (0.2-1.0); TOTAL PROTEIN 7.1 GM/DL (6.4-8.2); TROPONIN I LESS THAN 0.02 NG/ML (0.02-0.05)
--- NOTE | 2018-01-28 17:10 | EKG ---
Date Performed: 01/28/2018 Time Performed: 12:53:14 PTAGE: 62 years EKG: SINUS BRADYCARDIA BORDERLINE ECG PREVIOUS TRACING : 01/20/2018 09.01 DOCTOR: Oseas Ramesh Interpretating Date/Time 01/28/2018 17:09:27
[2018-01-28] MEDS ORDERED: CIPROFLOXACIN 500 MG TAB PO ONE (18:00)
[2018-01-28] MEDS ORDERED: traMADol HCL 50 MG TAB PO ONE (18:00)
[2018-01-28] MEDS ORDERED: CIPR-9 PO (18:10)
[2018-01-28] MEDS ORDERED: GUAISYP4 PO (18:10)
[2018-01-28] MEDS ORDERED: TRAM50 PO (18:10)
[2018-01-28 18:23] VITALS: BP 138/72
== END 2018-01-28 18:24 | disposition home or self-care (01) ==
LOC: NEPC 12:28
DX: J32.9 Chronic sinusitis, unspecified (principal); R20.2 Paresthesia of skin; I10 Essential (primary) hypertension; M79.7 Fibromyalgia; R00.1 Bradycardia, unspecified
CPT/HCPCS: 70450; 71045; 80053; 80307; 82550; 83690; 83880; 84443; 84484; 85025; 93005; 99285

== ENCOUNTER 2018-02-04 19:38 | Emergency (ER) | payer BC ==
[~2018-02-04] VITALS: Ht 149.9 cm; Wt 68.0 kg
[~2018-02-04 19:38] MED LIST changes: +CIPR-9 PO; +GUAISYP4 PO; +TRAM50 PO
[2018-02-04 19:42] VITALS: BP 127/97; PULSE 73; RESP 18; TEMP 97.8; O2SAT 100
[2018-02-04] MEDS ORDERED: ORPHENADRINE INJ 60 MG/2 ML AMP IM ONE (20:00)
--- NOTE | 2018-02-04 20:08 | PD ---
HPI Chief Complaint: Flank/Kidney Pain Time Seen by Provider: 19:50 Travel History International Travel<30 days: No Contact w/Intl Traveler<30days: No Traveled to known affect area: No History of Present Illness HPI 62-year-old female complains of low back pain, left flank pain. Patient states that the symptoms started 3 days ago. Patient states that she started having throbbing low back pain and then started having left sided low back pain and left flank pain. Patient states the pain radiated down the left leg. Patient denies any headache. Patient denies any chest pain or shortness of breath. Patient denies abdominal pain. Patient denies any nausea vomiting diarrhea. Patient denies any dysuria frequency. Patient denies any fever chills. Patient denies any recent injury. Patient denies any focal weakness or numbness of the extremity. PFSH Past Medical History Hx Anticoagulant Therapy: Yes (81 ASA) Arthritis: No Asthma: No Autoimmune Disease: No Anxiety: No Depression: No Heart Rhythm Problems: No Cancer: No Cardiac Catheterization: Yes Cardiovascular Problems: Yes High Cholesterol: No Chemotherapy: No Chest Pain: No Congestive Heart Failure: No COPD: No Cerebrovascular Accident: No Diminished Hearing: No Diverticulitis: Yes Endocrine: No Fibromyalgia: Yes Gastrointestinal Disorders: No GERD: No Genitourinary: No Headaches: No Hiatal Hernia: No Heparin Induced Thrombocytopen: No Hypertension: No Immune Disorder: No Implanted Vascular Access Dvce: No Kidney Stones: No Musculoskeletal: Yes Neurologic: Yes (CHRONIC BACK PAIN) Psychiatric: No Reproductive: No Respiratory: Yes (BRONCHITIS) Migraines: No Myocardial Infarction: Yes Radiation Therapy: No Renal Failure: No Sickle Cell Disease: No Sleep Apnea: No Thyroid Disease: No Ulcer: No Tetanus Vaccination: < 5 Years : 2 Para: 2 Miscarriage: 0 : 0 Past Surgical History Abdominal Surgery: No AICD: No Appendectomy: Yes Arteriovenous Shunt: No Cardiac Surgery: No Section: Yes Coronary Stent: Yes (07/22/2017) Ear Surgery: No Endocrine Surgery: No Eye Surgery: No Genitourinary Surgery: No Gynecologic Surgery: No Hysterectomy: Yes Insulin Pump: No Joint Replacement: No Neurologic Surgery: No Oral Surgery: No Pacemaker: No Thoracic Surgery: No Other Surgery: Yes (BREAST REDUCTION ) Family History Family Myocardial Infarction: Yes Social History Alcohol Use: No Tobacco Use: No Substance Use: No Allergies-Medications (Allergen,Severity, Reaction): Coded Allergies: No Known Allergies (Verified , 01/28/18) Reported Meds & Prescriptions Reported Meds & Active Scripts Active Cipro (Ciprofloxacin HCl) 500 Mg Tab 500 Mg PO BID 10 Days Metoprolol Tartrate 25 Mg Tab 25 Mg PO BID Aspirin Low Strength (Aspirin) 81 Mg Chew 81 Mg PO DAILY Lisinopril 5 Mg Tab 5 Mg PO DAILY Lipitor (Atorvastatin Calcium) 10 Mg Tab 10 Mg PO HS Effient (Prasugrel) 10 Mg Tab 10 Mg PO DAILY Reported Trazodone (Trazodone HCl) 100 Mg Tablet 100 Mg PO HS Remeron (Mirtazapine) 15 Mg Tab 15 Mg PO HS Gabapentin 800 Mg Tab 800 Mg PO QID Review of Systems General / Constitutional: No: Fever Eyes: No: Visual changes HENT: No: Headaches Cardiovascular: No: Chest Pain or Discomfort Respiratory: No: Shortness of Breath Gastrointestinal: No: Abdominal Pain Genitourinary: No: Dysuria Musculoskeletal: No: Pain Skin: No Rash Neurologic: No: Weakness Psychiatric: No: Depression Endocrine: No: Polydipsia Hematologic/Lymphatic: No: Easy Bruising Physical Exam Narrative GENERAL: Well-nourished, well-developed patient. SKIN: Focused skin assessment warm/dry. HEAD: Normocephalic. EYES: No scleral icterus. No injection or drainage. NECK: Supple, trachea midline. No JVD or lymphadenopathy. CARDIOVASCULAR: Regular rate and rhythm without murmurs, gallops, or rubs. RESPIRATORY: Breath sounds equal bilaterally. No accessory muscle use. GASTROINTESTINAL: Abdomen soft, non-tender, nondistended. MUSCULOSKELETAL: No cyanosis, or edema. BACK: Moderate tenderness on palpation of the left lumbar area, without obvious deformity. No CVA tenderness. Negative straight leg raising. Neurologic exam normal. Data Data Last Documented VS Vital Signs Date Time Temp Pulse Resp B/P (MAP) Pulse Ox O2 Delivery O2 Flow Rate FiO2 02/04/18 19:42 97.8 73 18 127/97 (107) 100 Orders Orders Urinalysis - C+S If Indicated (02/04/18 19:58) Ct Abd/Pel W/O Iv Contrast (02/04/18 19:58) Orphenadrine Inj (Norflex Inj) (02/04/18 20:00) Ed Discharge Order (02/04/18 21:26) Labs Laboratory Tests Test 02/04/18 20:15 Urine Color LIGHT-YELLOW Urine Turbidity CLEAR Urine pH 5.5 Urine Specific [place] 1.005 Urine Protein NEG mg/dL Urine Glucose (UA) NEG mg/dL Urine Ketones NEG mg/dL Urine Occult Blood NEG Urine Nitrite NEG Urine Bilirubin NEG Urine Urobilinogen LESS THAN 2.0 MG/DL Urine Leukocyte Esterase NEG Urine WBC 1 /hpf Urine Squamous Epithelial Cells 3 /hpf Microscopic Urinalysis Comment CULT NOT INDICATED MDM Medical Decision Making Medical Screen Exam Complete: Yes Emergency Medical Condition: Yes Interpretation(s) 21:02 PM. UA is negative. Differential Diagnosis Differential diagnosis including musculoskeletal, pyelonephritis, nephrolithiasis. Narrative Course 62-year-old female with left lumbar pain and low back pain. Nontraumatic. Norflex 60 mg IM. Diagnosis Primary Impression: Lumbar strain Qualified Codes: S39.012A - Strain of muscle, fascia and tendon of lower back , initial encounter Patient Instructions: General Instructions Additional Instructions: Robaxin as needed for pain. Moist heat. Follow-up with personal physician. Med/Other Pt SpecificInfo: Prescription(s) given Scripts Methocarbamol (Robaxin) 750 Mg Tab 750 MG PO QID for Muscle Spasm, #40 TAB 0 Refills Prov: Willie Porras MD 02/04/18 Disposition: 01 DISCHARGE HOME Condition: Stable Willie Porras MD February 04, 2018 20:08
[2018-02-04 20:39] LABS: BILIRUBIN, URINE NEG (NEG); BLOOD, URINE NEG (NEG); GLUCOSE,URINE NEG (NEG); KETONE, URINE NEG (NEG); NITRITE,URINE NEG (NEG); PH, URINE 5.5 (5.0-8.5); SQUAMOUS EPITHELIAL CELL URINE 3 /hpf (0-5); URINE COLOR LIGHT-YELLOW (YELLW/STRAW); URINE LEUKOCYTE ESTERASE NEG (NEG)
[2018-02-04] MEDS ORDERED: ROBA750T PO (21:27)
--- NOTE | 2018-02-04 21:34 | RADRPT ---
EXAM DATE/TIME: 02/04/2018 20:22 [facility] COMPARISON: CT ABDOMEN & PELVIS W CONTRAST, January 14, 2018, 17:56. INDICATIONS : Left flank pain. ORAL CONTRAST: No oral contrast ingested. RADIATION DOSE: 8.50 CTDIvol (mGy) MEDICAL HISTORY : Diverticulitis. Myocardial infarction. SURGICAL HISTORY : Coronary artery stent. Appendectomy.Hysterectomy.C section. ENCOUNTER: Initial ACUITY: 1 day PAIN SCALE: 8/10 LOCATION: Left flank TECHNIQUE: Volumetric scanning of the abdomen and pelvis was performed. Using automated exposure control and ad justment of the mA and/or kV according to patient size, radiation dose was kept as low as reasonably achievable to obtain optimal diagnostic quality images. DICOM format image data is available electro nically for review and comparison. FINDINGS: LOWER LUNGS: The visualized lower lungs are clear. LIVER: Visualized portions are grossly unremarkable. SPLEEN: Normal size without lesion. PANCREAS: Within normal limits. KIDNEYS: Normal in size and shape. There is no mass, stone, or hydronephrosis. ADRENAL GLANDS: Within normal limits. VASCULAR: There is no aortic aneurysm. BOWEL/MESENTERY: Distal colonic diverticulosis. No abnormal dilatation, wall thickening or focal inflammatory changes. ABDOMINAL WALL: Within normal limits. RETROPERITONEUM: There is no lymphadenopathy. BLADDER: No wall thickening or mass. REPRODUCTIVE: Uterus surgically absent. No evidence of pelvic mass or free fluid. INGUINAL: There is no lymphadenopathy or hernia. MUSCULOSKELETAL: Within normal limits for patient age. CONCLUSION: No evidence of nephrolithiasis or hydronephrosis. No acute findings. Tigre Lucas MD on February 04, 2018 at 21:28 Board Certified Radiologist. This report was verified electronically.
== END 2018-02-04 21:41 | disposition home or self-care (01) ==
LOC: NEPD 19:38
DX: S39.012A Strain of muscle, fascia and tendon of lower back, initial encounter (principal); X58.XXXA Exposure to other specified factors, initial encounter
CPT/HCPCS: 74176; 81001; 96372; 99283; J2360

== ENCOUNTER 2018-03-12 11:37 | Emergency (ER) | payer BC ==
[~2018-03-12] VITALS: Ht 149.9 cm; Wt 78.0 kg
[~2018-03-12 11:37] MED LIST changes: -CEPH-460 PO; -GUAISYP4 PO; +ROBA750T PO; -TRAM50 PO
[2018-03-12 11:41] VITALS: BP 139/76; PULSE 69; RESP 19; TEMP 98; O2SAT 99
[2018-03-12] MEDS ORDERED: IBUP1TAB7 PO (12:20)
[2018-03-12] MEDS ORDERED: MEDR4PAK PO (12:52)
--- NOTE | 2018-03-12 12:52 | PD ---
HPI Chief Complaint: Pain: Acute or Chronic Time Seen by Provider: 12:14 Travel History International Travel<30 days: No Contact w/Intl Traveler<30days: No Traveled to known affect area: No History of Present Illness HPI 62-year-old female presents to emergency department complaining of bilateral foot, lower leg, arm pain and burning since the end of December after a fall. She says her feet are the worst of all. Pain is to the plantar aspect. She has seen neurologist, Dr. Richey, and has EMG scheduled and a follow-up appointment scheduled for the end of March. She is awaiting her insurance to authorize an MRI of her neck and back. Denies encopresis, incontinence, saddle anesthesias. Denies fever, vomiting, chest pain, shortness of breath. Denies IV drug use or cancer. No known aggravating or relieving factors. Symptoms are mild in severity. She has tried taking tramadol, ibuprofen, and gabapentin for symptom management with no relief. Her primary care provider is Dr. White. No known allergies. History of fibromyalgia and NM. Denies anticoagulant therapy. Has no other medical complaints. No other modifying factors or associated signs and symptoms. PFSH Past Medical History Hx Anticoagulant Therapy: Yes (81 ASA) Arthritis: No Asthma: No Autoimmune Disease: No Anxiety: No Depression: No Heart Rhythm Problems: No Cancer: No Cardiac Catheterization: Yes Cardiovascular Problems: Yes High Cholesterol: No Chemotherapy: No Chest Pain: No Congestive Heart Failure: No COPD: No Cerebrovascular Accident: No Diminished Hearing: No Diverticulitis: Yes Endocrine: No Fibromyalgia: Yes Gastrointestinal Disorders: No GERD: No Genitourinary: No Headaches: No Hiatal Hernia: No Heparin Induced Thrombocytopen: No Hypertension: No Immune Disorder: No Implanted Vascular Access Dvce: No Kidney Stones: No Musculoskeletal: Yes Neurologic: Yes (CHRONIC BACK PAIN) Psychiatric: No Reproductive: No Respiratory: Yes (BRONCHITIS) Migraines: No Myocardial Infarction: Yes Radiation Therapy: No Renal Failure: No Sickle Cell Disease: No Sleep Apnea: No Thyroid Disease: No Ulcer: No ?: Not : 2 Para: 2 Miscarriage: 0 : 0 Past Surgical History Abdominal Surgery: No AICD: No Appendectomy: Yes Arteriovenous Shunt: No Cardiac Surgery: No Section: Yes Coronary Stent: Yes (07/22/2017) Ear Surgery: No Endocrine Surgery: No Eye Surgery: No Genitourinary Surgery: No Gynecologic Surgery: No Hysterectomy: Yes Insulin Pump: No Joint Replacement: No Neurologic Surgery: No Oral Surgery: No Pacemaker: No Thoracic Surgery: No Other Surgery: Yes (BREAST REDUCTION ) Social History Alcohol Use: No Tobacco Use: No Substance Use: No Allergies-Medications (Allergen,Severity, Reaction): Coded Allergies: No Known Allergies (Verified , 03/12/18) Reported Meds & Prescriptions Reported Meds & Active Scripts Active Medrol Dosepak (Methylprednisolone) 4 Mg Dspk 4 Mg PO DIRECTED Per Pharmacist direction Metoprolol Tartrate 25 Mg Tab 25 Mg PO BID Aspirin Low Strength (Aspirin) 81 Mg Chew 81 Mg PO DAILY Lisinopril 5 Mg Tab 5 Mg PO DAILY Lipitor (Atorvastatin Calcium) 10 Mg Tab 10 Mg PO HS Effient (Prasugrel) 10 Mg Tab 10 Mg PO DAILY Reported Ibuprofen 800 Mg Tab 800 Mg PO Q6HR PRN Trazodone (Trazodone HCl) 100 Mg Tablet 100 Mg PO HS Remeron (Mirtazapine) 15 Mg Tab 15 Mg PO HS Gabapentin 800 Mg Tab 800 Mg PO QID Review of Systems Except as stated in HPI: all other systems reviewed are Neg Physical Exam Narrative GENERAL: Well-nourished, well-developed female patient, in no acute distress SKIN: Warm and dry. HEAD: Atraumatic. Normocephalic. No facial droop noted. Tongue midline. Shoulder shrug equal. Finger to nose test normal. EYES: Pupils equal and round at 3 mm with brisk reaction. No scleral icterus. No injection or drainage. PERRLA. EOMI. ENT: Mucosa pink and moist. Airway patent. NECK: Moving freely. Active rotation greater than 45 to the left and right. Tenderness on palpation of cervical spine. Trachea midline. No lymphadenopathy. CARDIOVASCULAR: Regular rate. RESPIRATORY: No accessory muscle use. GASTROINTESTINAL: Flat. MUSCULOSKELETAL: Ambulatory in room with normal gait. Pain to the plantar aspect of both feet. No obvious deformities. No clubbing. No cyanosis. No edema. NEUROLOGICAL: Awake and alert. Oriented 4. No obvious cranial nerve deficits. Motor grossly within normal limits. Normal speech. No ataxia. No mid -line drift. No upper or lower extremity drift. General Assignment Reporter strength equal bilaterally. Sensory intact and equal bilaterally. Moves all extremities. Active plantar and dorsiflexion and strength equal bilaterally. 5/5 strength to all extremities. PSYCHIATRIC: Appropriate mood and affect; insight and judgment normal. Data Data Last Documented VS Vital Signs Date Time Temp Pulse Resp B/P (MAP) Pulse Ox O2 Delivery O2 Flow Rate FiO2 03/12/18 11:41 98.0 69 19 139/76 (97) 99 Orders Orders Ed Discharge Order (03/12/18 12:52) MDM Medical Decision Making Medical Screen Exam Complete: Yes Emergency Medical Condition: Yes Medical Record Reviewed: Yes Differential Diagnosis Plantar fasciitis, paresthesias, peripheral neuropathy, cervical radiculopathy, sciatica, lumbar radiculopathy Narrative Course 62-year-old female with bilateral foot pain to the plantar aspect and paresthesias, most likely consistent with peripheral neuropathy, since the end of December. I reviewed her medical record and she has been here 09/05/2017; December 25 and January 28, 2018 and has had brain MRI, carotid ultrasound, head MRA, head CT, head MRI, lumbar CT and all are unremarkable. Her neuro exam is unremarkable. She sees neurologist, Dr. Richey, and is awaiting an outpatient MRI of her neck and back. Patient reports midline tenderness palpation of her cervical spine. She is moving it freely and has active rotation greater than 45 the left and right. She has had no recent injury and I feel that imaging is not required at this time. [place] C-Spine Rule suggests the C-Spine can be cleared clinically of fracture, and imaging is not required. The patient is able to actively rotate the neck 45 left and right. The patient is sitting up in bed at 90. The patient is ambulatory. She denies encopresis, incontinence, saddle anesthesias. Denies IV drug use or cancer. Her main complaint is that both of her feet are painful and burning. I instructed patient to continue follow-up with neurologist and to follow-up for outpatient MRI. Instructed patient to follow-up with podiatry as needed. I discussed trying a Medrol Dosepak for her pain, and she agreed. Medrol Dosepak prescribed for home. Instructed patient to follow up with primary care provider. Patient verbalizes understanding and agreement with treatment plan. Patient is medically cleared and stable for discharge. Discussed reasons to return to the emergency department. Patient agrees with treatment plan. The patients vital signs are stable and the patient is stable for outpatient follow-up and treatment. Patient discharged home, stable and in no acute distress. Diagnosis Primary Impression: Bilateral foot pain Additional Impression: Paresthesias Referrals: Neurologist Garment Finisher Primary Care Physician Patient Instructions: General Instructions, Peripheral Neuropathy (ED), Plantar Fasciitis (ED), Plantar Fasciitis Exercises (GEN) Additional Instructions: Tylenol or ibuprofen as directed and as needed for pain Refer to Instructions for plantar fasciitis stretching exercises Avoid the use of flat shoes and barefoot walking Use heel shoe inserts or arch supports and/or heel cups as needed Decrease physical activity that causes aggravation of pain Follow-up with podiatry Follow-up with primary care Return to the emergency department immediately with worsening of symptoms Med/Other Pt SpecificInfo: Prescription(s) given Scripts Methylprednisolone Dosepak (Medrol Dosepak) 4 Mg Dspk 4 MG PO DIRECTED, #1 DSPK 0 Refills Per Pharmacist direction Prov: Yessenia Smith 03/12/18 Disposition: 01 DISCHARGE HOME Condition: Stable Yessenia Smith Mar 12, 2018 12:52
[2018-03-19] MEDS ORDERED: TRAZ1TAB14 PO (22:23)
[2018-03-19] MEDS ORDERED: REME30TA PO (22:23)
== END 2018-03-12 13:10 | disposition home or self-care (01) ==
LOC: NEPK 11:37
DX: M79.671 Pain in right foot (principal); M79.672 Pain in left foot; R20.2 Paresthesia of skin; M79.603 Pain in arm, unspecified; M79.606 Pain in leg, unspecified; M79.7 Fibromyalgia; G89.29 Other chronic pain; M54.9 Dorsalgia, unspecified; I25.2 Old myocardial infarction; Z95.5 Presence of coronary angioplasty implant and graft; Z79.82 Long term (current) use of aspirin
CPT/HCPCS: 99283

== ENCOUNTER 2018-03-26 18:44 | Observation (INO) ==
[2018-03-26] MEDS ORDERED: Morphine Inj 4 MG/ML Vial IV.PUSH ONE ×2 (19:13→23:21)
--- NOTE | 2018-03-26 19:45 | ED ---
HPI General Chief Complaint: Chest Pain Stated Complaint: Evac/Chest Pain Time Seen by Provider: 03/26/18 19:13 Source: patient Mode of arrival: ambulatory Limitations: no limitations History of Present Illness HPI narrative: The patient is a 62-year-old female. She complains of chest pain and back pain. She follows with Dr. Darryl Flores. She is due for a coronary catheterization next Saturday, about 6 days away. Her complaints include, "Can I get something for the pain" and "If only I could take something at home." Past medical history includes coronary artery disease with a cath performed about 9 months ago here with an RCA stent. MD complaint: chest pain Complete Quality Measures for STEMI Alert Patients STEMI Alert: No Onset (ago): week(s) (2) Duration: intermittent Onset: during rest Pain location: substernal and other (Back) Severity: moderate Quality: heaviness Context: other (Patient has a history of coronary artery disease with stent placed approximately 9 months prior) Treatments prior to arrival chest pain: aspirin Related Data Home Medications Medication Instructions Recorded Confirmed aspirin [Aspir-81] 81 mg PO DAILY 03/26/18 03/26/18 atorvastatin [Lipitor] 10 mg PO DAILY 03/26/18 03/26/18 gabapentin 800 mg PO BID 03/26/18 03/26/18 isosorbide mononitrate 10 mg PO BID 03/26/18 03/26/18 metoprolol tartrate 12.5 mg PO BID 03/26/18 03/26/18 mirtazapine [Remeron] 30 mg PO DAILY 03/26/18 03/26/18 ondansetron HCl [Zofran] 4 mg PO Q6-8H PRN 03/26/18 03/26/18 prasugrel 10 mg PO DAILY 03/26/18 03/26/18 ranitidine HCl 300 mg PO DAILY 03/26/18 03/26/18 trazodone 100 mg PO DAILY 03/26/18 03/26/18 Allergies Allergy/AdvReac Type Severity Reaction Status Date / Time No Known Allergies Allergy Verified 03/26/18 19:07 Review of Systems Except as stated in HPI: all other systems reviewed are negative Constitutional Reports as per HPI and Denies body ache(s) PMFSH Medical History Medical History Chest pain (Acute) Myocardial infarction (Acute) Surgical History Surgical History Hx of appendectomy (Acute) Hx of section (Acute) Social History Social History Recent Travel in [facility] within the Last 8 Weeks: No Recent Out of Country Travel within the Last 8 Weeks: No Exam Narrative Exam Narrative: GENERAL: 62 yo F, WNWD, mild distress 2/2 pain SKIN: Focused skin assessment warm/dry. HEAD: Atraumatic. Normocephalic. EYES: Pupils equal and round. No scleral icterus. No injection or drainage. ENT: No nasal bleeding or discharge. Mucous membranes pink and moist. NECK: Trachea midline. No JVD. CARDIOVASCULAR: Regular rate and rhythm. No murmur appreciated. RESPIRATORY: No accessory muscle use. Clear to auscultation. Breath sounds equal bilaterally. GASTROINTESTINAL: Abdomen soft, non-tender, nondistended. Hepatic and splenic margins not palpable. MUSCULOSKELETAL: No obvious deformities. No clubbing. No cyanosis. No edema. NEUROLOGICAL: Awake and alert. No obvious cranial nerve deficits. Motor grossly within normal limits. Normal speech. PSYCHIATRIC: Appropriate mood and affect; insight and judgment normal. Course Reevaluation(s) Reevaluation #1: Patient resting comfortably. She reports a persistent pain between the scapula. She also reports the pain is worse with rolling over. She reports her compliance with all medications. Patient states pain has persisted. Case discussed with Dr. Flores at the same time. Overall presentation is considered somewhat low likelihood for coronary disease. Call placed to residents 910pm. Time: 21:09 Consultations Consultation #1: Dr Darby Flores, discussed by phone Time: 21:07 Initial Documented Vital Signs Temperature 98.1 F 03/26/18 18:58 Pulse Rate 94 H 03/26/18 18:58 Respiratory Rate 16 03/26/18 18:58 Blood Pressure 136/63 03/26/18 18:58 Pulse Oximetry 95 03/26/18 18:58 Last Documented Vital Signs Temperature 98.1 F 03/26/18 18:58 Pulse Rate 84 03/26/18 22:26 Respiratory Rate 16 03/26/18 22:19 Blood Pressure 102/65 03/26/18 21:30 Pulse Oximetry 99 03/26/18 21:30 Medical Decision Making MDM Narrative Medical decision making narrative: Pt to be admitted under resident service. Further cardiac work up per cardiology discretion. d/w Small Package And Bundle Sorter Clerk Lab Data Lab results reviewed: Yes I reviewed the patient's lab results. Lab results narrative: Tn < 0.02 Lipase normal Mild elevated in Cr is non specific in this scenario. Result diagrams: 03/26/18 19:36 03/26/18 19:36 Lab Results 03/26/18 03/26/18 03/26/18 Range/Units 19:36 19:36 19:36 WBC 10.1 (4.0-11.0) th/mm3 RBC 4.08 (4.00-5.30) mil/mm3 Hgb 12.5 (11.6-15.3) gm/dL Hct 35.8 (35.0-46.0) % MCV 87.6 (80.0-100.0) fL MCH 30.7 (27.0-34.0) pg MCHC 35.0 (32.0-36.0) % RDW 13.7 (11.6-17.2) % Plt Count 281 (150-450) th/mm3 MPV 7.9 (7.0-11.0) fL Neut % (Auto) 53.9 (16.0-70.0) % Lymph % (Auto) 36.2 (9.0-44.0) % [place] % (Auto) 5.2 (0.0-8.0) % Eos % (Auto) 3.1 (0.0-4.0) % Baso % (Auto) 1.6 (0.0-2.0) % Neut # (Auto) 5.4 (1.8-7.7) th/mm3 Lymph # (Auto) 3.7 (1.0-4.8) th/mm3 [place] # (Auto) 0.5 (0.0-0.9) th/mm3 Eos # (Auto) 0.3 (0.0-0.4) th/mm3 Baso # (Auto) 0.2 (0.0-0.2) th/mm3 WBC Differential . Differential Comment Auto diff final PT 9.4 L (9.8-11.6) sec INR 0.9 Ratio APTT 25.3 (24.3-30.1) sec Sodium (136-145) meq/L Potassium (3.5-5.1) meq/L Chloride (98-107) meq/L Carbon Dioxide (21.0-32.0) meq/L Anion Gap (5-15) meq/L BUN (7-18) mg/dL Creatinine (0.50-1.00) mg/dL Estimated GFR (>89) mL/min Random Glucose (74-106) mg/dL Calcium (8.5-10.1) mg/dL Magnesium (1.5-2.5) mg/dL Total Bilirubin (0.2-1.0) mg/dL AST (15-37) U/L ALT (10-53) U/L Alkaline Phosphatase (45-117) U/L Total Creatine Kinase (26-192) U/L Troponin I (0.02-0.05) ng/mL Total Protein (6.4-8.2) g/dL Albumin (3.4-5.0) g/dL Lipase 179 (73-393) U/L 03/26/18 Range/Units 19:36 WBC (4.0-11.0) th/mm3 RBC (4.00-5.30) mil/mm3 Hgb (11.6-15.3) gm/dL Hct (35.0-46.0) % MCV (80.0-100.0) fL MCH (27.0-34.0) pg MCHC (32.0-36.0) % RDW (11.6-17.2) % Plt Count (150-450) th/mm3 MPV (7.0-11.0) fL Neut % (Auto) (16.0-70.0) % Lymph % (Auto) (9.0-44.0) % [place] % (Auto) (0.0-8.0) % Eos % (Auto) (0.0-4.0) % Baso % (Auto) (0.0-2.0) % Neut # (Auto) (1.8-7.7) th/mm3 Lymph # (Auto) (1.0-4.8) th/mm3 [place] # (Auto) (0.0-0.9) th/mm3 Eos # (Auto) (0.0-0.4) th/mm3 Baso # (Auto) (0.0-0.2) th/mm3 WBC Differential Differential Comment PT (9.8-11.6) sec INR Ratio APTT (24.3-30.1) sec Sodium 142 (136-145) meq/L Potassium 4.1 (3.5-5.1) meq/L Chloride 106 (98-107) meq/L Carbon Dioxide 24.0 (21.0-32.0) meq/L Anion Gap 12 (5-15) meq/L BUN 21 H (7-18) mg/dL Creatinine 1.52 H (0.50-1.00) mg/dL Estimated GFR 35 L (>89) mL/min Random Glucose 135 H (74-106) mg/dL Calcium 9.1 (8.5-10.1) mg/dL Magnesium 2.2 (1.5-2.5) mg/dL Total Bilirubin 0.3 (0.2-1.0) mg/dL AST 22 (15-37) U/L ALT 22 (10-53) U/L Alkaline Phosphatase 116 (45-117) U/L Total Creatine Kinase 92 (26-192) U/L Troponin I Less than 0.02 L (0.02-0.05) ng/mL Total Protein 7.5 (6.4-8.2) g/dL Albumin 3.9 (3.4-5.0) g/dL Lipase (73-393) U/L Imaging Data Radiologist's impression: ITS Impressions Chest X-Ray 03/26/18 19:14 CONCLUSION: Minimal basilar atelectasis. No effusion or pneumothorax. ECG Data EKG Prior to Arrival: No Attestation: I personally reviewed and interpreted this ECG as follows: Prior ECG tracings: not available for review Interpretation: EKG shows a sinus rhythm with a rate of 98 axis is normal the ventricles are normal Discharge Plan Discharge Disposition Patient Disposition: 30 Still Patient Physicians Team ED Provider: Jason Flores Primary Care Provider: Ag Cifuentes Rxs /Orders / Referrals /Forms Prescriptions: No Action atorvastatin [Lipitor] 10 mg Tablet 10 mg PO DAILY RF: 0 aspirin [Aspir-81] 81 mg Tablet,Delayed Release (Dr/Ec) 81 mg PO DAILY RF: 0 gabapentin 800 mg Tablet 800 mg PO BID RF: 0 mirtazapine [Remeron] 30 mg Tablet 30 mg PO DAILY RF: 0 metoprolol tartrate 25 mg Tablet 12.5 mg PO BID RF: 0 prasugrel 10 mg Tablet 10 mg PO DAILY RF: 0 ondansetron HCl [Zofran] 4 mg Tablet 4 mg PO Q6-8H PRN (Reason: Nausea And Vomiting) RF: 0 trazodone 100 mg Tablet 100 mg PO DAILY RF: 0 ranitidine HCl 300 mg Capsule 300 mg PO DAILY RF: 0 isosorbide mononitrate 10 mg Tablet 10 mg PO BID RF: 0 Discharge Instructions Patient Printed Instructions: Chest Pain (ED) Status ED Status: Admitted Patient
--- NOTE | 2018-03-26 19:48 | XR ---
EXAM DATE: 03/26/2018 7:40 PM EDT AGE/SEX: 62 years / Female INDICATIONS: Short of breath, chest pains. CLINICAL DATA: This is the patient's initial encounter. Patient reports that signs and symptoms have been present for 1 day and indicates a pain score of 3/10. MEDICAL/SURGICAL HISTORY: None. None. COMPARISON: [facility] [place], CHEST SINGLE AP, 03/19/2018. . FINDINGS: A single AP view of the chest demonstrates the lungs to be symmetrically aerated without evidence of mass, infiltrate or effusion. Minimal basilar atelectasis. The cardiomediastinal contours are unrema rkable. Osseous structures are intact. CONCLUSION: Minimal basilar atelectasis. No effusion or pneumothorax. Electronically signed by: Blayne Watts MD 03/26/2018 7:47 PM EDT
[2018-03-26 20:19] LABS: Baso # (Auto) 0.2 th/mm3 (0.0-0.2); Baso % (Auto) 1.6 % (0.0-2.0); Eos # (Auto) 0.3 th/mm3 (0.0-0.4); Eos % (Auto) 3.1 % (0.0-4.0); Hematocrit 35.8 % (35.0-46.0); Hemoglobin 12.5 gm/dL (11.6-15.3); Lymph # (Auto) 3.7 th/mm3 (1.0-4.8); Lymph % (Auto) 36.2 % (9.0-44.0); Mean Corpuscular Hemoglobin 30.7 pg (27.0-34.0); Mean Corpuscular Volume 87.6 fL (80.0-100.0); Mean Platelet Volume 7.9 fL (7.0-11.0); Mono # (Auto) 0.5 th/mm3 (0.0-0.9); Mono % (Auto) 5.2 % (0.0-8.0); Neut # (Auto) 5.4 th/mm3 (1.8-7.7); Neut % (Auto) 53.9 % (16.0-70.0); Platelet Count 281 th/mm3 (150-450); Red Blood Count 4.08 mil/mm3 (4.00-5.30); Red Cell Distribution Width 13.7 % (11.6-17.2); White Blood Count 10.1 th/mm3 (4.0-11.0)
[2018-03-26 20:30] LABS: Activated Partial Thrombo Time 25.3 sec (24.3-30.1); INR 0.9 Ratio; Prothrombin Time 9.4 sec (9.8-11.6)
[2018-03-26 20:40] LABS: Albumin 3.9 g/dL (3.4-5.0); Alkaline Phosphatase 116 U/L (45-117); Anion Gap 12 meq/L (5-15); Aspartate Aminotransferase 22 U/L (15-37); Blood Urea Nitrogen 21 mg/dL (7-18); Calcium 9.1 mg/dL (8.5-10.1); Chloride 106 meq/L (98-107); Glomerular Filtration Rate 35 mL/min (>89); Glucose,Random 135 mg/dL (74-106); Magnesium 2.2 mg/dL (1.5-2.5); Sodium 142 meq/L (136-145); Total Protein 7.5 g/dL (6.4-8.2)
[2018-03-26 20:45] LABS: Potassium 4.1 meq/L (3.5-5.1)
[2018-03-26 20:46] LABS: Creatine Kinase 92 U/L (26-192)
[2018-03-26 20:58] LABS: Alanine Aminotransferase 22 U/L (10-53)
[2018-03-26] MEDS ORDERED: Ketorolac Inj 30 MG/ML (IVP) Vial IV.PUSH ONE (22:37)
[2018-03-26] MEDS ORDERED: Senna/Docusate Sodium 8.6/50 MG Tablet PO PRN (23:14)
[2018-03-26] MEDS ORDERED: Bisacodyl 10 MG Supp RECTAL PRN (23:14)
[2018-03-26] MEDS ORDERED: Iohexol 350 MG/ML 50 ML Vial (for Cath Lab) IV.SIG ONE (23:15)
[2018-03-26] MEDS ORDERED: Acetaminophen 325 MG Tablet PO PRN (23:19)
[2018-03-26] MEDS ORDERED: Naloxone Inj 0.4 MG/ML Vial IV.PUSH PRN (23:19)
--- NOTE | 2018-03-26 23:19 | P.HPGS ---
History of Present Illness Primary Care Physician: Ag Cifuentes MD, R3 Chief Complaint: chest pain and not feeling well History of Present Illness: Patient is a 62-year-old female with past medical history significant for GA, s/ p stent placement, neuropathy and depressive disorder resents to the ED with complaints of chest pain, shortness of breath with exertion and generalized " not feeling well". Patient reports that she has had on and off chest pain and generalized malaise however she reports the symptoms did not subside. She is experiencing pressure-like chest pain radiating to her back. Symptoms were similar to when she had a prior GA and so she decided to come to the ED for further evaluation. Of note patient reports that she had previously been downgraded on gabapentin medication from 800 mg 4 times a day to 300 mg 3 times a day and initially believed the decrease in dosage was the reason she did not feel well. However when symptoms did not subside prompting her to come to the ED. Endorses dizziness, chest pain, shortness of breath, and nausea. Denies any recent sick contacts, vomiting, diarrhea, orthopnea, falls or syncope. Endorses weight gain and lower extremity swelling is gravity dependent. Of note patient was scheduled to have cath Procedure done Saturday of this week due to intermittent chest pain for the past couple of months. - Diagnosis (1) Chest pain (2) Hypertension (3) Depression (4) Fibromyalgia (5) Nutrition, metabolism, and development symptoms - Inpatient Certification If this patient has been admitted as an Inpatient: I certify that the inpatient services were ordered in accordance with Medicare regulations governing the order. This includes certification that hospital inpatient services are reasonable and necessary and in the case of services not specified as inpatient-only under 42 CFR 419.22(n), that they are appropriately provided as inpatient services in accordance to with the 2-midnight benchmark under 43 CFR 412.3(e) Review of Systems All other systems reviewed negative except as stated in HPI PMFSH - History History Provided By: Patient, Dock Coordinator / EMT - Medical History Medical History: Medical History (Last Updated 03/26/18 @ 19:01 by Teresa Gonzales RN) Chest pain Myocardial infarction - Surgical History Surgical History: Surgical History (Last Updated 03/26/18 @ 19:02 by Teresa Gonzales RN) Hx of appendectomy Hx of section - Travel History Recent Travel in the [place] Within the Last 8 Weeks: No Recent Travel Out of the Country Within the Last 8 Weeks: No Medications and Allergies Active Medications: Active Medications Sodium Chloride (Ns Flush) 2 ml IV.FLUSH UNSCH PRN PRN Reason: FLUSH AFTER USING IV ACCESS Last Admin: 03/26/18 19:43 Dose: 2 ml Allergies Allergy/AdvReac Type Severity Reaction Status Date / Time No Known Allergies Allergy Verified 03/26/18 19:07 Home Medications Medication Instructions Recorded Confirmed Type aspirin [Aspir-81] 81 mg PO DAILY 03/26/18 03/26/18 History atorvastatin [Lipitor] 10 mg PO DAILY 03/26/18 03/26/18 History gabapentin 800 mg PO BID 03/26/18 03/26/18 History isosorbide mononitrate 10 mg PO BID 03/26/18 03/26/18 History metoprolol tartrate 12.5 mg PO BID 03/26/18 03/26/18 History mirtazapine [Remeron] 30 mg PO DAILY 03/26/18 03/26/18 History ondansetron HCl [Zofran] 4 mg PO Q6-8H PRN 03/26/18 03/26/18 History prasugrel 10 mg PO DAILY 03/26/18 03/26/18 History ranitidine HCl 300 mg PO DAILY 03/26/18 03/26/18 History trazodone 100 mg PO DAILY 03/26/18 03/26/18 History Exam Vital signs: Vital Signs 03/26/18 18:58 03/26/18 21:30 03/26/18 22:19 Temperature 98.1 F Pulse Rate 94 H 90 Respiratory Rate 16 18 16 Blood Pressure 136/63 102/65 Pulse Oximetry 95 99 03/26/18 22:26 Temperature Pulse Rate 84 Respiratory Rate Blood Pressure Pulse Oximetry Intake & Output 03/26/18 03/26/18 03/27/18 06:59 18:59 06:59 Weight 75.296 kg - Constitutional no acute distress - Routine HEENT Exam Head: Present: normocephalic. Absent: scalp tenderness Eye: Present: EOMI, PERRL ENT: Present: mucous membranes moist - Routine Neck Exam Present: supple, full ROM. Absent: JVD, lymphadenopathy - Routine Chest/Breast/Axilla Exam Chest wall: Present: tenderness - Routine Respiratory Exam Present: CTA bilaterally. Absent: accessory muscle use - Routine Cardiovascular Exam Present: RRR, S1, S2. Absent: murmur, gallop, rubs - Routine Abdominal Exam Present: soft, normoactive bowel sounds. Absent: tenderness, rebound, guarding - Routine Extremities Exam Present: cyanosis, clubbing, edema, full ROM, pulses intact, normal capillary refill. Absent: calf tenderness - Routine Skin Exam Present: intact - Routine Neurological Exam Present: alert, oriented X3, CN II-XII intact, normal speech. Absent: sensory deficit, motor deficit, altered mental status, clonus, nystagmus, hearing grossly intact, tremors Caprini VTE Risk Assessment Caprini VTE Risk Assessment: Moderate/High Risk (score >= 2) Caprini Risk Assessment Model: Point Value = 1 Point Value = 2 Point Value = 3 Point Value = 5 Age 41-60 Minor surgery BMI > 25 kg/m2 Swollen legs Varicose veins or History of unexplained or recurrent spontaneous Oral contraceptives or hormone replacement Sepsis (< 1 month) Serious lung disease, including pneumonia (< 1 month) Abnormal pulmonary function Acute myocardial infarction Congestive heart failure (< 1 month) History of inflammatory bowel disease Medical patient at bed rest Age 61-74 Arthroscopic surgery Major open surgery (> 45 min) Laparoscopic surgery (> 45 min) Malignancy Confined to bed (> 72 hours) Immobilizing plaster cast Central venous access Age >= 75 History of VTE Family history of VTE Factor V Leiden Prothrombin [id number] Lupus anticoagulant Anticardiolipin antibodies Elevated serum homocysteine Heparin-induced thrombocytopenia Other congenital or acquired thrombophilia Stroke (< 1 month) Elective arthroplasty Hip, pelvis, or leg fracture Acute spinal cord injury (< 1 month) Prophylaxis Regimen: Total Risk Factor Score Risk Level Prophylaxis Regimen 0-1 Low Early ambulation 2 Moderate Order ONE of the following: *Sequential Compression Device (SCD) *Heparin 5000 units SQ BID 3-4 Higher Order ONE of the following medications: *Heparin 5000 units SQ TID *Enoxaparin/Lovenox 40 mg SQ daily (WT < 150 kg, CrCl > 30 mL/min) *Enoxaparin/Lovenox 30 mg SQ daily (WT < 150 kg, CrCl > 10-29 mL/min) *Enoxaparin/Lovenox 30 mg SQ BID (WT < 150 kg, CrCl > 30 mL/min) AND/OR *Sequential Compression Device (SCD) 5 or more Highest Order ONE of the following medications: *Heparin 5000 units SQ TID (Preferred with Epidurals) *Enoxaparin/Lovenox 40 mg SQ daily (WT < 150 kg, CrCl > 30 mL/min) *Enoxaparin/Lovenox 30 mg SQ daily (WT < 150 kg, CrCl > 10-29 mL/min) *Enoxaparin/Lovenox 30 mg SQ BID (WT < 150 kg, CrCl > 30 mL/min) AND *Sequential Compression Device (SCD) Assessment and Plan - Assessment (1) Chest pain Code(s): R07.9 - Chest pain, unspecified Status: Acute Plan: Patient with intermittent history of chest pain for the past couple of months. Today patient reported persistent pressure-like chest pain accompanied by malaise and shortness of breath. Patient reports prior history of GA with similar symptoms. He reports she has a cardiac cath scheduled for 03/28. EKG normal sinus rhythm Troponin x1 negative Patient received asa 324mg and nitroglycerin oint Titrate oxygen as needed for O2 saturation greater than 92% Trend serial troponin and EKG Patient placed on office cleaner for observation Per ED physician patient's case was discussed with on-call field ring assembler and possible rescheduling of cath will be attempted for 03/27 instead of 03/28 (2) Hypertension Code(s): I10 - Essential (primary) hypertension Status: Chronic Plan: BP WNL c/w home medication (3) Depression Code(s): F32.9 - Major depressive disorder, single episode, unspecified Status : Acute Plan: stable c/w home medication (4) Fibromyalgia Code(s): M79.7 - Fibromyalgia Status: Acute Plan: c/w gabapentin increase dose of 400 TID (5) Nutrition, metabolism, and development symptoms Code(s): R63.8 - Other symptoms and signs concerning food and fluid intake Status: Acute Plan: Fluids:100mls/hr Electrolytes: replete as needed Nutrition: NPO pending possible cardiac cath DVT PPx: SCDs
[2018-03-27] MEDS: Morphine Inj 4 MG/ML Vial IV.PUSH PRN ×4 (06:48→22:08)
[2018-03-27] MEDS: Sod Chloride 0.9% Inj 1,000 ML IV.CONT SCH ×2 (07:51→18:42)
--- NOTE | 2018-03-27 08:55 | P.HPFP ---
History of Present Illness Primary Care Physician: Ag Cifuentes MD, R3 Chief Complaint: chest pain and not feeling well History of Present Illness: Patient seen on morning rounds and states that she continues to have centralized chest pressure. She was woken up overnight due to chest heaviness and substernal chest pain "straight through to her back". She did get some short term relief with pain medication but pain returns quickly. In summary, this is a 62 yo F with h/o CAD and NSTEMI s/p stent placement (2016). She has had 2 weeks of intermittent chest discomfort and heaviness and has actually been scheduled for a cardiac catheterization with Dr. Flores next week. However, yesterday she had worsening chest pressure/heaviness associated with shortness of breath and significant fatigue. She was then brought into the ED for further evaluation and treatment. She endorses substernal chest heaviness and shortness of breath, she endorses bilateral lower extremity swelling, she endorses 15lb weight gain for 2 months. She denies nausea/vomiting, denies diaphoresis, denies radiation of pain to her jaw or arm. - Diagnosis (1) Chest pain (2) Coronary artery disease (3) Hypertension (4) Depression (5) Fibromyalgia (6) Nutrition, metabolism, and development symptoms - Inpatient Certification If this patient has been admitted as an Inpatient: I certify that the inpatient services were ordered in accordance with Medicare regulations governing the order. This includes certification that hospital inpatient services are reasonable and necessary and in the case of services not specified as inpatient-only under 42 CFR 419.22(n), that they are appropriately provided as inpatient services in accordance to with the 2-midnight benchmark under 43 CFR 412.3(e) Review of Systems All other systems reviewed negative except as stated in HPI Constitutional: Reports fatigue, Reports weight gain Cardiovascular: Reports chest pain, Reports chest pain at rest, Reports chest pain with activity, Reports foot swelling, Reports leg swelling, Reports shortness of breath with activity PMFSH - History History Provided By: Patient, Automobile Repair Service Estimator / EMT - Medical History Medical History: Medical History (Last Updated 03/26/18 @ 19:01 by Teresa Gonzales RN) Chest pain Myocardial infarction - Surgical History Surgical History: Surgical History (Last Updated 03/26/18 @ 19:02 by Teresa Gonzales RN) Hx of appendectomy Hx of section - Tobacco History Second Hand Smoke Exposure: No Smoking Status: Never smoker - Alcohol History How Often Do You Have a Drink Containing Alcohol: Never - Substance Use History Substance History: No History of Abuse - Travel History Recent Travel in the [place] Within the Last 8 Weeks: No Recent Travel Out of the Country Within the Last 8 Weeks: No - Immunization History Tetanus Immunization: Unsure Medications and Allergies Active Medications: Active Medications Acetaminophen (Tylenol) 650 mg PO Q6HR PRN PRN Reason: PAIN SCALE 1 TO 2 Hydrocodone Bitart/Acetaminophen (Bronson 10/325) 1 tab PO Q4H PRN PRN Reason: PAIN SCALE 6 TO 10 Last Admin: 03/27/18 05:42 Dose: 1 tab Hydrocodone Bitart/Acetaminophen (Bronson 5/325) 1 tab PO Q4H PRN PRN Reason: PAIN SCALE 3 TO 5 Al Hydroxide/Mg Hydroxide (Milk Of Magnesia Liq) 30 ml PO Q12H PRN PRN Reason: Mild Constipation Atorvastatin Calcium (Lipitor) 10 mg PO HS [facility] Atorvastatin Calcium (Lipitor) 10 mg PO DAILY [facility] Bisacodyl (Dulcolax Supp) 10 mg RECTAL DAILY PRN PRN Reason: SEVERE CONSITIPATION Famotidine (Pepcid) 20 mg PO BID [facility] Gabapentin (Neurontin) 400 mg PO TID [facility] Sodium Chloride (Ns Inj) 1,000 mls @ 100 mls/hr IV.CONT .Q10H BESSY Last Admin: 03/27/18 07:51 Dose: 100 mls/hr Lactulose (Lactulose Liq) 30 ml PO DAILY PRN PRN Reason: SEVERE CONSITIPATION Losartan Potassium (Cozaar) 50 mg PO DAILY [facility] Metoprolol Tartrate (Lopressor) 25 mg PO BID [facility] Mirtazapine (Remeron) 30 mg PO HS [facility] Miscellaneous (Pill Splitter) 1 each OTHER UNSCH X1 [facility] Morphine Sulfate (Morphine Inj) 2 mg IV.PUSH Q3H PRN PRN Reason: BREAKTHROUGH PAIN Last Admin: 03/27/18 06:48 Dose: 2 mg Naloxone HCl (Narcan Inj) 0.4 mg IV.PUSH UNSCH PRN PRN Reason: SEE LABEL COMMENTS Ondansetron HCl (Zofran Odt) 4 mg PO Q6H PRN PRN Reason: NAUSEA OR VOMITING Prasugrel (Effient) 10 mg PO DAILY [facility] Senna/Docusate Sodium (Angélica-Colace) 1 tab PO BID PRN PRN Reason: CONSTIPATION Sennosides (Senokot) 17.2 mg PO Q12H PRN PRN Reason: Moderate Constipation Sodium Chloride (Ns Flush) 2 ml IV.FLUSH UNSCH PRN PRN Reason: FLUSH AFTER USING IV ACCESS Last Admin: 03/26/18 19:43 Dose: 2 ml Allergies Allergy/AdvReac Type Severity Reaction Status Date / Time No Known Allergies Allergy Verified 03/26/18 19:07 Home Medications Medication Instructions Recorded Confirmed Type aspirin [Aspir-81] 81 mg PO DAILY 03/26/18 03/26/18 History atorvastatin [Lipitor] 10 mg PO DAILY 03/26/18 03/26/18 History gabapentin 800 mg PO BID 03/26/18 03/26/18 History isosorbide mononitrate 10 mg PO BID 03/26/18 03/26/18 History metoprolol tartrate 12.5 mg PO BID 03/26/18 03/26/18 History mirtazapine [Remeron] 30 mg PO DAILY 03/26/18 03/26/18 History ondansetron HCl [Zofran] 4 mg PO Q6-8H PRN 03/26/18 03/26/18 History prasugrel 10 mg PO DAILY 03/26/18 03/26/18 History ranitidine HCl 300 mg PO DAILY 03/26/18 03/26/18 History trazodone 100 mg PO DAILY 03/26/18 03/26/18 History Exam Vital signs: Vital Signs 03/26/18 18:58 03/26/18 21:30 03/26/18 22:19 Temperature 98.1 F Pulse Rate 94 H 90 Respiratory Rate 16 18 16 Blood Pressure 136/63 102/65 Pulse Oximetry 95 99 03/26/18 22:26 03/27/18 00:12 03/27/18 05:31 Temperature 98.4 F Pulse Rate 84 84 65 Respiratory Rate 18 17 Blood Pressure 118/67 103/55 L Pulse Oximetry 99 98 03/27/18 08:00 Temperature 97.5 F L Pulse Rate 56 L Respiratory Rate 16 Blood Pressure 96/51 L Pulse Oximetry 96 Intake & Output 03/26/18 03/27/18 03/27/18 18:59 06:59 18:59 Intake Total 0 / 0 Balance 0 / 0 Weight 75.296 kg 78.5 kg Intake: Oral 0 / 0 Other: # Voids 0 Date of Last Bowel Movement 03/26/18 Weight On Admission 78.5 kg - Constitutional no acute distress - Routine HEENT Exam Head: Present: normocephalic, atraumatic Eye: Present: EOMI ENT: Present: mucous membranes moist - Routine Neck Exam Present: supple, full ROM. Absent: JVD - Routine Chest/Breast/Axilla Exam Chest wall: Absent: tenderness - Routine Respiratory Exam Present: CTA bilaterally. Absent: accessory muscle use, rales, respiratory distress, rhonchi, wheezes, crackles - Routine Cardiovascular Exam Present: RRR, S1, S2. Absent: murmur, rubs, irregular rhythm - Routine Abdominal Exam Present: soft, normoactive bowel sounds. Absent: tenderness, distended, rebound , guarding - Routine Extremities Exam Present: normal capillary refill. Absent: cyanosis, clubbing, edema - Routine Skin Exam Present: intact. Absent: rash - Routine Neurological Exam Present: alert, oriented X3 Results - Labs Result diagrams: 03/26/18 19:36 03/26/18 19:36 Abnormal lab results 03/26/18 03/26/18 03/27/18 Range/Units 19:36 19:36 00:02 PT 9.4 L (9.8-11.6) sec BUN 21 H (7-18) mg/dL Creatinine 1.52 H (0.50-1.00) mg/dL Estimated GFR 35 L (>89) mL/min Random Glucose 135 H (74-106) mg/dL Troponin I Less than 0.02 L Less than 0.02 L (0.02-0.05) ng/mL Short CBC 03/26/18 Range/Units 19:36 WBC 10.1 (4.0-11.0) th/mm3 Hgb 12.5 (11.6-15.3) gm/dL Hct 35.8 (35.0-46.0) % Plt Count 281 (150-450) th/mm3 BMP 03/26/18 19:36 Sodium 142 Potassium 4.1 Chloride 106 Carbon Dioxide 24.0 BUN 21 H Creatinine 1.52 H Calcium 9.1 Cardiac Enzymes 03/26/18 03/27/18 Range/Units 19:36 00:02 Total Creatine Kinase 92 (26-192) U/L Troponin I Less than 0.02 L Less than 0.02 L (0.02-0.05) ng/mL Liver Function 03/26/18 Range/Units 19:36 Total Bilirubin 0.3 (0.2-1.0) mg/dL AST 22 (15-37) U/L ALT 22 (10-53) U/L Alkaline Phosphatase 116 (45-117) U/L Albumin 3.9 (3.4-5.0) g/dL - Imaging Impressions Chest X-Ray 03/26/18 19:14 CONCLUSION: Minimal basilar atelectasis. No effusion or pneumothorax. Caprini VTE Risk Assessment Caprini VTE Risk Assessment: Moderate/High Risk (score >= 2) Caprini Risk Assessment Model: Point Value = 1 Point Value = 2 Point Value = 3 Point Value = 5 Age 41-60 Minor surgery BMI > 25 kg/m2 Swollen legs Varicose veins or History of unexplained or recurrent spontaneous Oral contraceptives or hormone replacement Sepsis (< 1 month) Serious lung disease, including pneumonia (< 1 month) Abnormal pulmonary function Acute myocardial infarction Congestive heart failure (< 1 month) History of inflammatory bowel disease Medical patient at bed rest Age 61-74 Arthroscopic surgery Major open surgery (> 45 min) Laparoscopic surgery (> 45 min) Malignancy Confined to bed (> 72 hours) Immobilizing plaster cast Central venous access Age >= 75 History of VTE Family history of VTE Factor V Leiden Prothrombin [id number] Lupus anticoagulant Anticardiolipin antibodies Elevated serum homocysteine Heparin-induced thrombocytopenia Other congenital or acquired thrombophilia Stroke (< 1 month) Elective arthroplasty Hip, pelvis, or leg fracture Acute spinal cord injury (< 1 month) Prophylaxis Regimen: Total Risk Factor Score Risk Level Prophylaxis Regimen 0-1 Low Early ambulation 2 Moderate Order ONE of the following: *Sequential Compression Device (SCD) *Heparin 5000 units SQ BID 3-4 Higher Order ONE of the following medications: *Heparin 5000 units SQ TID *Enoxaparin/Lovenox 40 mg SQ daily (WT < 150 kg, CrCl > 30 mL/min) *Enoxaparin/Lovenox 30 mg SQ daily (WT < 150 kg, CrCl > 10-29 mL/min) *Enoxaparin/Lovenox 30 mg SQ BID (WT < 150 kg, CrCl > 30 mL/min) AND/OR *Sequential Compression Device (SCD) 5 or more Highest Order ONE of the following medications: *Heparin 5000 units SQ TID (Preferred with Epidurals) *Enoxaparin/Lovenox 40 mg SQ daily (WT < 150 kg, CrCl > 30 mL/min) *Enoxaparin/Lovenox 30 mg SQ daily (WT < 150 kg, CrCl > 10-29 mL/min) *Enoxaparin/Lovenox 30 mg SQ BID (WT < 150 kg, CrCl > 30 mL/min) AND *Sequential Compression Device (SCD) Assessment and Plan - Assessment (1) Chest pain Code(s): R07.9 - Chest pain, unspecified Status: Chronic Plan: Known history of coronary artery disease status post stent placement in June 2017 -EKG shows normal sinus rhythm -Troponins negative 2 -No acute ST or T-wave changes on EKG Supplemental oxygen as needed Monitor on telemetry Continue nitroglycerin ointment Continue morphine as needed Received aspirin 325 mg 1 on arrival to the ED Complete cardiac enzyme with troponin 1 more Cardiology consulted to evaluate patient as she is scheduled for catheterization as outpatient next week. This is her second visit to the emergency department within 1 week for chest pressure and chest discomfort. (2) Coronary artery disease Code(s): I25.10 - Atherosclerotic heart disease of si[place] coronary artery without angina pectoris Status: Acute Plan: Continue home medications with atorvastatin, metoprolol, and Effient (3) Hypertension Code(s): I10 - Essential (primary) hypertension Status: Chronic Plan: Blood pressure within normal limits, continue home medications (4) Depression Code(s): F32.9 - Major depressive disorder, single episode, unspecified Status : Acute Plan: Continue home antidepressant (5) Fibromyalgia Code(s): M79.7 - Fibromyalgia Status: Acute Plan: Continue gabapentin (6) Nutrition, metabolism, and development symptoms Code(s): R63.8 - Other symptoms and signs concerning food and fluid intake Status: Acute Plan: Fluids:100mls/hr Electrolytes: replete as needed Nutrition: NPO pending possible cardiac cath DVT PPx: SCDs H&P: Quality - VTE Deep Vein Thrombosis/Pulmonary Embolism Present on Admission: No (2) Coronary artery disease Qualifiers: Coronary Disease-Associated Artery/Lesion type: [place] artery [place] vs. transplanted heart: [place] heart Associated angina: with stable angina Qualified Code(s): I25.118 - Atherosclerotic heart disease of [place] coronary artery with other forms of angina pectoris (3) Hypertension Qualifiers: Hypertension type: essential hypertension Qualified Code(s): I10 - Essential (primary) hypertension (4) Depression Qualifiers: Depression Type: major depressive disorder Major depression recurrence: unspecified whether recurrent Active/Remission status: currently active Psychotic features: without psychotic features
[2018-03-27] MEDS: Famotidine 20 MG Tablet PO SCH ×2 (09:34→20:12)
[2018-03-27] MEDS: Gabapentin 400 MG Capsule PO SCH ×3 (09:34→18:45)
[2018-03-27] MEDS: Metoprolol Tartrate 25 MG Tablet PO SCH ×2 (10:13→20:11)
[2018-03-27 15:08] LABS: Calcium 8.2 mg/dL (8.5-10.1); Carbon Dioxide 21.4 meq/L (21.0-32.0); Potassium 3.7 meq/L (3.5-5.1)
[2018-03-27 15:48] LABS: Creatine Kinase 59 U/L (26-192)
--- NOTE | 2018-03-27 17:41 | ECG ---
Date Performed: 03/26/2018 Time Performed: 19:10:02 PTAGE: 62 years EKG: Sinus rhythm NORMAL ECG PREVIOUS TRACING :03/19/2018 @22.53 Since the previous tracing, no significant change noted DOCTOR: Carol Melgar Interpretating Date/Time 03/27/2018 17:40:19
--- NOTE | 2018-03-27 17:41 | ECG ---
Date Performed: 03/26/2018 Time Performed: 23:57:38 PTAGE: 62 years EKG: Sinus rhythm NORMAL ECG PREVIOUS TRACING : 03/26/2018 19.10 Since the previous tracing, no significant change noted DOCTOR: Carol Melgar Interpretating Date/Time 03/27/2018 17:40:28
[2018-03-27] MEDS ORDERED: Mirtazapine 15 MG Tablet PO SCH (21:00)
--- NOTE | 2018-03-27 22:48 | MB ---
cc: Darryl Flores Vincent G DO DATE: 03/27/2018 REASON FOR CONSULTATION: Chest pain. HISTORY OF PRESENT ILLNESS: Radha Velazquez is a pleasant 62-year-old female, whom I see in the office, who presented to [facility] Emergency Room due to chest pain. She has had this chest pain on and off for a number of months and was previously admitted here under the [facility] and underwent stress testing in 11/2017 as well as before that in 06/2017. The one 06/2017 showed a large area of inferior ischemia and she underwent PCI of her RCA. The one in 11/2017 showed no significant ischemia. She then presented once again earlier this year to the [facility] and, after being ruled out for a myocardial infarction, she was discharged home to follow up with me. When seen at that time, she continued to have these episodes of chest pain which are somewhat atypical for ischemia. They sometimes feels like heaviness, but other times they are stabbing. They come and go, not really associated with activity. She does have shortness of breath and fatigue, but this is somewhat chronic. When seeing her in the office, I set her up for an elective cardiac catheterization on 04/01/2018 for definitive diagnosis as she has had multiple admissions for chest pain without a definitive yes or no on further coronary artery disease. She obviously was unable to make in until that time and continued to have chest pain, so she came to the emergency room. In seeing her, she is currently hemodynamically stable with minimal chest pain. PAST MEDICAL HISTORY: 1. Chest pain. 2. Myocardial infarction. 3. Hyperlipidemia. 4. Diverticulosis. 5. Fibromyalgia. 6. Chronic back pain. PAST SURGICAL HISTORY: 1. Cardiac catheterization (07/22/2017): Left main, LAD and left circumflex all have mild luminal irregularities. RCA has a 99% occlusion in its mid portion status post drug-eluting stent (3 x 18) 2. Appendectomy. 3. . 4. Breast reduction. 5. Pilonidal cyst removal. ALLERGIES: NO KNOWN DRUG ALLERGIES. MEDICATIONS: 1. Remeron 30 mg daily. 2. Gabapentin 800 mg b.i.d. 3. Lipitor 10 mg daily. 4. Metoprolol tartrate 12.5 mg b.i.d. 5. Effient 10 mg daily. 6. Ranitidine 300 mg daily. 7. Isosorbide mononitrate 10 mg b.i.d. 8. Trazodone 100 mg daily. 9. Aspirin 81 mg daily. 10. Zofran 4 mg every 4-6 hours as needed for nausea. FAMILY HISTORY: Denies premature coronary artery disease or sudden cardiac within the family. SOCIAL HISTORY: The patient denies tobacco, alcohol or drug abuse. REVIEW OF SYSTEMS: Fourteen systems were reviewed including osteopathic. Pertinent positives and negatives as above, otherwise negative. PHYSICAL EXAMINATION: VITAL SIGNS: Temperature 97.9, heart rate 61, blood pressure 138/65, respirations 18, pulse oximetry 99% on room air. GENERAL: The patient appears well in no acute distress. Alert, awake, oriented x3. HEENT: Extraocular muscles intact. Mucous membranes moist. NECK: Supple. No JVD at 45 degrees. No carotid bruits heard bilaterally. Carotid upstroke is brisk in nature. HEART: Regular rate and rhythm. Positive first and second heart sounds and no known murmurs, rubs or gallops LUNGS: Clear to auscultation bilateral with no wheezes, rales or rhonchi. ABDOMEN: Soft, nontender, nondistended, no organomegaly noted. EXTREMITIES: No cyanosis, clubbing or edema. Femoral and distal pulses are intact bilaterally. NEUROLOGIC: No focal deficits. SKIN: Warm, dry and intact. OSTEOPATHIC: No kyphoscoliosis, lordosis or paraspinal tender points. LABORATORY DATA: Hemoglobin 12.5, hematocrit 35.8, platelets 281. Potassium 4.1, BUN 21, creatinine 1.52. Troponin negative x2. CARDIOLOGY STUDIES: Electrocardiogram (03/26/2018 at 2357): Sinus rhythm. No acute ST-T wave changes. IMPRESSION: 1. Chest pain with previous history of a negative pharmacologic nuclear stress test. 2. Coronary artery disease with a history of percutaneous coronary intervention of right coronary artery as above. 3. Fibromyalgia. 4. Chronic back pain. 5. Acute kidney injury. RECOMMENDATIONS: 1. Ms. Velazquez presented with chest pain once again and I think that she needs to undergo cardiac catheterization for definitive diagnosis. 2. Risks, benefits, and alternatives were explained to her and she consented as such. 3. I would forego stress testing, as she recently had one around 4 months ago which was negative for ischemia, but continues to have this chest pain. 5. As she has acute kidney injury, we will lightly hydrate her and recheck her creatinine before her cardiac catheterization. 4. Further recommendations will be made based on the hospital course. Thank you for allowing me to see Radha Velazquez. If there are any questions, please do not hesitate to call. DO HINA Barrios/ , 10:08 PM , 10:46 PM
[2018-03-28] MEDS: Sod Chloride 0.9% Inj 1,000 ML IV.CONT SCH (05:03)
--- NOTE | 2018-03-28 07:38 | ECG ---
Date Performed: 03/27/2018 Time Performed: 23:28:38 PTAGE: 62 years EKG: Sinus rhythm NORMAL ECG No significant change from prior electrocardiogram. PREVIOUS TRACING : 03/26/2018 23.57 DOCTOR: Zia Toro Interpretating Date/Time 03/28/2018 07:38:09
[2018-03-28] MEDS: Famotidine 20 MG Tablet PO SCH (08:22)
[2018-03-28] MEDS: Gabapentin 400 MG Capsule PO SCH (08:23)
[2018-03-28] MEDS: Metoprolol Tartrate 25 MG Tablet PO SCH (08:24)
--- NOTE | 2018-03-28 08:29 | P.PNFP ---
Addendum entered and electronically signed by Tawny Dumont MD, R2 03/28/18 11:51: Patient re-evaluated after catheterization. She had unremarkable cath procedure per verbal report from Dr. Flores and is cleared for discharge this afternoon. She is alert, oriented, and jovial. She notes her chest and back pain intermittently persists and pain is not reproducible on exam. Right wrist with cath entry site is clean and dry. Patient will have three-day supply of [place] given her acute back pain persists, suspect etiology is musculoskeletal vs. GI. She is counseled to use acetaminophen for primary control and to use [place] only when patient is not controlled with acetaminophen. She is counseled on max daily dose of acetaminophen of 3g. Will continue PPI and H2 [place]. For chronic fibromyalgia , patient states she needs higher dose and this appears to be reasonable; she will have gabapentin script changed to 600mg TID with further titration as outpatient. Patient is calling now to set up appointment with Dr. Prieto or other provider in [facility] for early next week to follow up this hospitalization. Original Note: Subjective Interval history: Patient was seen and examined this morning. She states she still has chest pain and back pain amenable to [place] and desires definitive answer as to why she has chest pain. She denies shortness of breath, nausea, vomiting, abdominal pain, and back pain. She denies issues with ambulation and is urinating and defacating without dysuria or other difficulties. Last meal was fish last night. <Tawny Dumont - 03/28/18 11:08> Results - Labs Result diagrams: 03/26/18 19:36 03/27/18 14:03 <Philippe Castorena - 03/28/18 14:18> Abnormal lab results 03/27/18 03/27/18 Range/Units 14:03 14:03 Chloride 112 H (98-107) meq/L BUN 22 H (7-18) mg/dL Estimated GFR 63 L (>89) mL/min Calcium 8.2 L D (8.5-10.1) mg/dL Troponin I Less than 0.02 L (0.02-0.05) ng/mL BMP 03/27/18 14:03 Sodium 144 Potassium 3.7 Chloride 112 H Carbon Dioxide 21.4 BUN 22 H Creatinine 0.91 Calcium 8.2 L D Cardiac Enzymes 03/27/18 Range/Units 14:03 Total Creatine Kinase 59 (26-192) U/L Troponin I Less than 0.02 L (0.02-0.05) ng/mL <Philippe Castorena - 03/28/18 14:18> Abnormal lab results 03/27/18 03/27/18 Range/Units 14:03 14:03 Chloride 112 H (98-107) meq/L BUN 22 H (7-18) mg/dL Estimated GFR 63 L (>89) mL/min Calcium 8.2 L D (8.5-10.1) mg/dL Troponin I Less than 0.02 L (0.02-0.05) ng/mL BMP 03/27/18 14:03 Sodium 144 Potassium 3.7 Chloride 112 H Carbon Dioxide 21.4 BUN 22 H Creatinine 0.91 Calcium 8.2 L D Cardiac Enzymes 03/27/18 Range/Units 14:03 Total Creatine Kinase 59 (26-192) U/L Troponin I Less than 0.02 L (0.02-0.05) ng/mL <Tawny Dumont - 03/28/18 08:29> - Imaging ITS Impressions Chest X-Ray 03/26/18 19:14 CONCLUSION: Minimal basilar atelectasis. No effusion or pneumothorax. <Tawny Dumont - 03/28/18 10:36> Physical Exam Vital signs: Vital Signs 03/27/18 15:36 03/27/18 16:00 03/27/18 19:22 Temperature 97.7 F Pulse Rate 69 Respiratory Rate 16 18 16 Blood Pressure 125/66 Pulse Oximetry 99 03/27/18 19:47 03/27/18 20:00 03/27/18 20:12 Temperature 97.9 F 98.2 F Pulse Rate 61 67 Respiratory Rate 18 18 16 Blood Pressure 138/65 126/60 Pulse Oximetry 99 98 03/27/18 20:59 03/28/18 00:00 03/28/18 04:00 Temperature 98.3 F Pulse Rate 67 52 L Respiratory Rate 18 Blood Pressure 123/58 L Pulse Oximetry 100 99 03/28/18 04:54 03/28/18 07:36 03/28/18 08:00 Temperature 98 F Pulse Rate 62 77 Respiratory Rate 19 Blood Pressure 147/79 H Pulse Oximetry 97 97 Intake & Output 03/27/18 03/28/18 03/28/18 18:59 06:59 18:59 Intake Total 1000 / 1000 1480 / 1480 Balance 1000 / 1000 1480 / 1480 Intake: IV 1000 / 1000 1000 / 1000 NS Inj 1,000 ML @ 100 mls/hr IV 1000 / 1000 1000 / 1000 .CONT .Q10H BESSY Rx#:[id number] Oral 480 / 480 Other: # Voids 4 5 Date of Last Bowel Movement 03/26/18 <Philippe Castorena - 03/28/18 14:18> Vital Signs 03/27/18 09:00 03/27/18 09:27 03/27/18 09:29 Temperature Pulse Rate 67 55 L Respiratory Rate 16 Blood Pressure 103/55 L Pulse Oximetry 99 99 03/27/18 09:34 03/27/18 12:00 03/27/18 12:53 Temperature 97.5 F L Pulse Rate 57 L Respiratory Rate 16 16 16 Blood Pressure 138/66 Pulse Oximetry 100 03/27/18 15:36 03/27/18 16:00 03/27/18 19:22 Temperature 97.7 F Pulse Rate 69 Respiratory Rate 16 18 16 Blood Pressure 125/66 Pulse Oximetry 99 03/27/18 19:47 03/27/18 20:00 03/27/18 20:12 Temperature 97.9 F 98.2 F Pulse Rate 61 67 Respiratory Rate 18 18 16 Blood Pressure 138/65 126/60 Pulse Oximetry 99 98 03/27/18 20:59 03/28/18 00:00 03/28/18 04:00 Temperature 98.3 F Pulse Rate 67 52 L Respiratory Rate 18 Blood Pressure 123/58 L Pulse Oximetry 100 99 03/28/18 04:54 03/28/18 07:36 Temperature 98 F Pulse Rate 62 77 Respiratory Rate 19 Blood Pressure 147/79 H Pulse Oximetry 97 Intake & Output 03/27/18 03/28/18 03/28/18 18:59 06:59 18:59 Intake Total 1000 / 1000 1480 / 1480 Balance 1000 / 1000 1480 / 1480 Intake: IV 1000 / 1000 1000 / 1000 NS Inj 1,000 ML @ 100 mls/hr IV 1000 / 1000 1000 / 1000 .CONT .Q10H BESSY Rx#:[id number] Oral 480 / 480 Other: # Voids 4 5 Date of Last Bowel Movement 03/26/18 <Tawny Dumont - 03/28/18 08:29> Narrative: GENERAL: Well-appearing female in no apparent distress SKIN: Warm and dry. No rashes or ecchymoses. HEAD: Atraumatic. Normocephalic. EYES: Pupils equal and round. No scleral icterus. No injection or drainage. ENT: No nasal bleeding or discharge. Mucous membranes pink and moist. NECK: Trachea midline. No JVD. CARDIOVASCULAR: Regular rate and rhythm. No murmurs, gallops, rubs. RESPIRATORY: No accessory muscle use. Clear to auscultation bilaterally without wheezes or rhonchi. GASTROINTESTINAL: Abdomen soft, non-tender, nondistended. Normal bowel sounds. MUSCULOSKELETAL: Extremities without clubbing, cyanosis, or edema. No obvious deformities. NEUROLOGICAL: Awake and alert. No obvious cranial nerve deficits. Motor grossly within normal limits. Normal speech. PSYCHIATRIC: Appropriate mood and affect; insight and judgment normal. <Tawny Dumont - 03/28/18 10:36> Assessment and Plan - Assessment (1) Chest pain Code(s): R07.9 - Chest pain, unspecified Status: Chronic Onset Date: ~ (2) Coronary artery disease Code(s): I25.10 - Atherosclerotic heart disease of [place] coronary artery without angina pectoris Status: Acute (3) Hypertension Code(s): I10 - Essential (primary) hypertension Status: Chronic (4) Depression Code(s): F32.9 - Major depressive disorder, single episode, unspecified Status : Acute (5) Fibromyalgia Code(s): M79.7 - Fibromyalgia Status: Acute (6) Acute kidney injury Code(s): N17.9 - Acute kidney failure, unspecified Status: Resolved Onset Date: ~03/26/18 (7) Nutrition, metabolism, and development symptoms Code(s): R63.8 - Other symptoms and signs concerning food and fluid intake Status: Acute <Philippe Castorena - 03/28/18 14:18> (1) Chest pain Code(s): R07.9 - Chest pain, unspecified Status: Chronic Onset Date: ~ Plan: Suspect unstable angina given patient's symptoms and history. She has a known history of coronary artery disease status post stent placement in June 2017. Cardiac catheterization planned for this morning, patient n.p.o. except meds. Hospital Course: -EKGs show normal sinus rhythm -Troponins negative 3 - Cardiology consulted; Patient established with Dr. Flores within the last week Interventions: Supplemental oxygen as needed Monitor on telemetry Continue nitroglycerin ointment Continue morphine as needed Received aspirin 325 mg 1 on arrival to the ED, continued daily aspirin and prasurgrel while inpt Of note this is her second visit to the emergency department within 1 week for chest pressure and chest discomfort. (2) Coronary artery disease Code(s): I25.10 - Atherosclerotic heart disease of [place] coronary artery without angina pectoris Status: Acute Plan: Continue home medications with atorvastatin, metoprolol, and Effient (3) Hypertension Code(s): I10 - Essential (primary) hypertension Status: Chronic Plan: Blood pressure within normal limits, continue home medications (4) Depression Code(s): F32.9 - Major depressive disorder, single episode, unspecified Status : Acute Plan: Continue home antidepressant (5) Fibromyalgia Code(s): M79.7 - Fibromyalgia Status: Acute Plan: Continue gabapentin, will discuss with patient that her dose can be increased to 600mg TID with titration as outpatient. (6) Acute kidney injury Code(s): N17.9 - Acute kidney failure, unspecified Status: Resolved Onset Date: ~03/26/18 Plan: Patient is noted to have had acute kidney injury at admission. This has resolved. Will discontinue IV fluids after catheterization procedure (7) Nutrition, metabolism, and development symptoms Code(s): R63.8 - Other symptoms and signs concerning food and fluid intake Status: Acute Plan: Fluids:100mls/hr given STEPHANIE, d/c 03/28 Electrolytes: replete as needed Nutrition: NPO pending possible cardiac cath DVT PPx: SCDs <Tawny Dumont - 03/28/18 11:24> - Assessment and Plan Discussed Condition With: Dr. Castorena, attending <Tawny Dumont 03/28/18 10:36> Discharge Planning: Expect patient to be discharged within 48 hours, pending results of cardiac catheterization <Tawny Dumont 03/28/18 10:36> - Attending Attestation Patient examined and case discussed with resident physician I have read the above note and agree with the assessment/plan as discussed with me I was involved in all medical decision making for this patient Philippe Castorena MD <Philippe Castorena - 03/28/18 14:18> <Tawny Dumont - Last Filed: 03/28/18 11:24> (1) Chest pain Qualifiers: Chest pain type: unspecified Qualified Code(s): R07.9 - Chest pain, unspecified (2) Coronary artery disease Qualifiers: Coronary Disease-Associated Artery/Lesion type: [place] artery [place] vs. transplanted heart: [place] heart Associated angina: with stable angina Qualified Code(s): I25.118 - Atherosclerotic heart disease of [place] coronary artery with other forms of angina pectoris (3) Hypertension Qualifiers: Hypertension type: essential hypertension Qualified Code(s): I10 - Essential (primary) hypertension (4) Depression Qualifiers: Depression Type: major depressive disorder Major depression recurrence: unspecified whether recurrent Active/Remission status: currently active Psychotic features: without psychotic features <Philippe Castorena - Last Filed: 03/28/18 14:18> (1) Chest pain Qualifiers: Chest pain type: unspecified Qualified Code(s): R07.9 - Chest pain, unspecified (2) Coronary artery disease Qualifiers: Coronary Disease-Associated Artery/Lesion type: [place] artery [place] vs. transplanted heart: [place] heart Associated angina: with stable angina Qualified Code(s): I25.118 - Atherosclerotic heart disease of [place] coronary artery with other forms of angina pectoris (3) Hypertension Qualifiers: Hypertension type: essential hypertension Qualified Code(s): I10 - Essential (primary) hypertension (4) Depression Qualifiers: Depression Type: major depressive disorder Major depression recurrence: unspecified whether recurrent Active/Remission status: currently active Psychotic features: without psychotic features <Tawny Dumont - Last Filed: 03/28/18 11:24> (1) Chest pain Qualifiers: Chest pain type: unspecified Qualified Code(s): R07.9 - Chest pain, unspecified (2) Coronary artery disease Qualifiers: Coronary Disease-Associated Artery/Lesion type: [place] artery [place] vs. transplanted heart: [place] heart Associated angina: with stable angina Qualified Code(s): I25.118 - Atherosclerotic heart disease of [place] coronary artery with other forms of angina pectoris (3) Hypertension Qualifiers: Hypertension type: essential hypertension Qualified Code(s): I10 - Essential (primary) hypertension (4) Depression Qualifiers: Depression Type: major depressive disorder Major depression recurrence: unspecified whether recurrent Active/Remission status: currently active Psychotic features: without psychotic features <Philippe Castorena - Last Filed: 03/28/18 14:18> (1) Chest pain Qualifiers: Chest pain type: unspecified Qualified Code(s): R07.9 - Chest pain, unspecified (2) Coronary artery disease Qualifiers: Coronary Disease-Associated Artery/Lesion type: [place] artery [place] vs. transplanted heart: [place] heart Associated angina: with stable angina Qualified Code(s): I25.118 - Atherosclerotic heart disease of [place] coronary artery with other forms of angina pectoris (3) Hypertension Qualifiers: Hypertension type: essential hypertension Qualified Code(s): I10 - Essential (primary) hypertension (4) Depression Qualifiers: Depression Type: major depressive disorder Major depression recurrence: unspecified whether recurrent Active/Remission status: currently active Psychotic features: without psychotic features
[2018-03-28] MEDS ORDERED: fentaNYL Citrate Inj 100 MCG/2 ML Ampul ONE (10:06)
[2018-03-28] MEDS ORDERED: Heparin/NS PF Inj 1,000 ML ONE (10:06)
[2018-03-28] MEDS ORDERED: Heparin 10,000 UNITS/10 ML Vial (for IV use) ONE (10:07)
--- NOTE | 2018-03-28 10:55 | CATHPROC ---
[facility] HIS Report Study Information Study Number Admission Scheduled Start Study Start [id number] Mar 26 2018 11:14PM 03/28/2018 Mar 28 2018 9:52AM [place] [facility] Cath Endovascular Study Admit Source Facility Department Emergency department [facility] Physician and Clinical Staff Initial Darryl Velazquez Retail Team Leader Vandana Urbano,RN Recorder Shruti Rangel ,RT(R) Scrub Shankar, Marianela,WOODS LABORER TECH2 Procedures Performed Procedure Location (Site) Vessel Name Coronary Angiograms LCA Left Coronary Coronary Angiograms RCA Right Coronary L Heart Cath Wire insertion Radial (right) Radial Art. Equipment Time Paint Roller Winder Description Size Mfg Part Number Used/Scraped TRANSDUCER, TRUWAVE [id number] 09:54 [employer]ERLING GILES * Used W/STOCKCOCK *[id number] *[id number] 09:54 [employer] BLANKET,WARM AIR CCL * Used *[id number] 09:54 [employer] PACK, CCL CUSTOM * Used *[id number] 09:54 [employer] SUPPORT, ARTERIAL ADULT 34241 *[id number] Used [id number] 10:20 [employer] JL 3.5 DXTERITY CATHETER FR 5 Used *[id number] BAND, RADIAL COMPRESSION TR [id number] 10:41 [employer] 24CM Used SHORT 24 *[id number] 09:54 [employer] WIRE, EXCHANGE 260CM 3MMJ 260CM Used *[id number] 09:54 NAMIC MANIFOLD, 4 PORT * Used *[id number] 09:54 [employer] OMNIPAQUE, 350 MG, 150ML 150ML [id number] Used SHEATH, FR6 TRANSRADIAL RM*[id number] 09:54 [employer] MEDICAL FR 6 Used SLENDER 10CM *[id number] Equipment Model, Serial, Lot Number and Expiration Data Description Model Number Serial Number Lot Number Expiration Date BAND, RADIAL COMPRESSION TR [id number] 11-20-2020 SHORT 24 History: Current Medications Medication Dosage/Unit Route Frequency Last Date/Time Taken ASA Statins (any) COZAAR Beta Maximino NTG Patch EFFIENT History: Allergies Allergy Reaction No Known Allergies History: Risk Factors Family History of Hypertension Dyslipidemia Previous IA Previous Heart Failure Premature CAD Yes Yes Yes Yes No Prior Valve Prior PCI Prior PCIDate Prior CABG Surgery No Yes 06/23/2017 No Cerebrovascular Peripheral Artery Chronic Lung On Dialysis Diabetes Disease Disease Disease No No No No No History: Symptoms/Diagnosis Selection Items Angina-unstable History: Stress Tests Stress or Imaging Studies Performed Yes Standard Exercise Stress Test No Stress Echo No Stress Test SPECT Yes Stress Test CMR No Cardiac CTA Coronary Calcium Score No No History: Other Current Smoker No Labs Hgb (g/dl) Hct (%) WBC (l/cumm) Platelets (thousands) 11.60-17.00 35.00-51.00 4.00-11.00 150.00-450.00 12.5 35.8 10.1 281 Glucose (mg/dl) BUN (mg/dl) Creatinine (mg/dl) BUN:Creatinine (1:x) 74.00-106.00 7.00-18.00 0.50-1.30 10.00-20.00 88 22 0.9 24.4 Na (meq/l) K (meq/l) 136.00-145.00 3.50-5.10 144 3.7 INR (PTT:PT) 0.90-1.10 0.9 CPK-MB (ng/ML) 0.50-3.60 Not Drawn Medication Medication Total Dose (Bolus/Oral) Medication Total Dosage/Unit 1% XYLOCAINE 5 mL FENTANYL 25 mcg RADIAL COCKTAIL 5 mL (Bolus) VERSED 0.5 mg Medications (Bolus/Oral) Medication Time Given Dosage/Unit Administered By Reason VERSED 03/28/2018 10:26:38 AM 0.5 mg Vandana Urbano 0.5 mg VERSED given in lab by Vandana Urbano RN via Peripheral IV. Ordered by Darryl Flores 1% XYLOCAINE 03/28/2018 10:27:08 AM 5 mL Darryl Flores 5 mL 1% XYLOCAINE given in lab by Darryl Flores in Right Radial via Subcutaneous. Ordered by Darryl Chow FENTANYL 03/28/2018 10:27:48 AM 25 mcg Vandana Urbano 25 mcg FENTANYL given in lab by Vandana Urbano RN via Peripheral IV. Ordered by Darryl Flores Ntg 200mcg Verapamil 2.5mg Heparin RADIAL COCKTAIL 03/28/2018 10:29:50 AM 5 mL (Bolus) Darryl Flores 3000U 5 mL (Bolus) RADIAL COCKTAIL given in lab by Vandana Urbano RN via Radial. Using [Solution Name]. Or dered by Darryl Flores Reason: Ntg 200mcg Heparin 3100U. Medication (Drip) Medication Time Given Dosage/Unit Concentration/Unit Diluent (ml) Solution IV Solutions 03/28/2018 10:06:13 AM 50 mL (IV) NaCl .9 Patient arrived on IV Solutions in Right Antecubital via Peripheral IV. Pump/Drip Flow using NaCl .9. Initial Case Assessment Cardiovascular HR NIBP Chest Pain 51 114/80 0 Edema Present Skin color Skin None Normal Warm Dry Circulatory - Right Pulses Dorsalis Pedis Femoral Radial 2 2 2 Scale (0,1,2,3,4,d) Circulatory - Left Pulses Dorsalis Pedis Femoral Radial 2 2 Scale (0,1,2,3,4,d) Neurological State Oriented to time-place- Alert Moves all extremities person Respiration - General Respiration Rate SpO2 (%) (B/min) 8 100 Final Case Assessment Cardiovascular HR NIBP Chest Pain 51 114/80 0 Edema Present Skin color Skin None Normal Warm Dry Circulatory - Right Pulses Dorsalis Pedis Femoral Radial 2 2 2 Scale (0,1,2,3,4,d) Circulatory - Left Pulses Dorsalis Pedis Femoral Radial 2 2 Scale (0,1,2,3,4,d) Neurological State Oriented to time-place- Alert Moves all extremities person Respiration - General Respiration Rate SpO2 (%) (B/min) 8 100 Chronological Log Time Study Chronological Log 9:58:57 Patient arrived via Bed. 9:58:58 Patient Name, D.O.B, / Armband Verified By R.N. Vitals capture started with the following parameters, Patient=Adult, Interval=5 min, Initial Pr wqqkhd=756 mmHg, 10:05:36 Deflation Rate=5 mmHg, Cuff placed on Right Arm 10:05:49 Consent signed by the physician and the patient and verified by the [facility] staff. 10:05:50 Pre-op and post- op instructions given; patient acknowledges understanding of instructions. 10:05:50 Verbal Stimulation=2 Physical Stimulation=2 Airway=2 Respiration=2 TOTAL=8. (0=absent, 1=li mited, 2=present) 10:06:04 Allens test performed on the right radial and ulnar artery. positive 10:06:05 HR=53 bpm, HYOR=937/80 mmhg, WaW3=733.0 % 10:06:05 Patient has been NPO for More than 6Hrs. 10:06:06 Skin Breakdown- none per patient 10:06:09 Patient Warmer Placed on the Table. 10:06:10 Charlee Prominences Protected 10:06:12 A # 20 IV was noted in the Antecubital (right). Grade = 0 10:06:13 Patient arrived on IV Solutions in Right Antecubital via Peripheral IV. Pump/Drip Flow usin g NaCl .9. 10:06:13 History and physical on the chart or being dictated. Assessment: Initial Case, HR=51 BPM, LIMO=426/80 mmhg, Chest Pain=0, Edema=None, Color=Normal, Skin = Warm, Dry Right Pulses: Oniel Ped=2, Femoral=2, Radial=2 10:06:14 Left Pulses: Oniel Ped=2, Femoral=2 Neurological: State=Alert, Ox3, [place] Respiration: Resp=8 B/min, MqQ9=266 % 10:08:24 Reference ECG taken 10:11:51 HR=54 bpm, BRJX=639/88 mmhg, SpO2=79.0 % 10:12:16 Right Radial and right groin prepped with 2% chlorhexidine, and draped after a 3 min. waiti ng time. 10:14:34 MD paged 10:14:35 MD responded 10:16:18 HR=56 bpm, RCKS=056/83 mmhg, SpO2=96.0 % 10:16:38 Pressure channel 1 zeroed. 10:19:06 MD arrived. 10:21:19 HR=55 bpm, NLUU=798/75 mmhg, SpO2=96.0 % Time Out. Correct patient, correct procedure, correct physician, labs, allergies, and equipment verified with fish hatchery laborer 10:26:11 team present. Fire risk assesment completed (see hard stop sheet for coding). Time Out Conc urred by MD and individual staff in procedure. 10:26:22 HR=49 bpm, KWLV=388/74 mmhg, SpO2=99.0 % 10:26:38 0.5 mg VERSED given in lab by Vandana Urbano RN via Peripheral IV. Ordered by Tamara Flores 10:27:05 Case Start 5 mL 1% XYLOCAINE given in lab by Darryl Flores in Right Radial via Subcutaneous. Ordered by Mark, 10:27:08 Darryl Ricks 10:27:48 25 mcg FENTANYL given in lab by Vandana Urbano, ABY via Peripheral IV. Ordered by Darryl Flores. 10:29:00 Access site was Right Radial Artery. 10:29:09 A wire was inserted via Radial (right). A SHEATH, FR6 TRANSRADIAL SLENDER 10CM FR 6 was advanced into the Radial (right) using the Perc utaneous 10:29:15 technique. 5 mL (Bolus) RADIAL COCKTAIL given in lab by Vandana Urbano, ABY via Radial. Using [Solution Nam e]. Ordered by 10:29:50 Darryl Flores Reason: Ntg 200mcg Heparin 3100U. A JR 4.0 INFINITI CATHETER FR 5 was advanced over a wire. OMNIPAQUE, 350 MG, 150ML 150ML was us ed for 10:30:36 injections. 10:31:23 HR=59 bpm, EZVF=416/68 mmhg, SpO2=98.0 % Recorded Pressure: LV, HR=58, Condition=Condition 1 10:32:22 (Left Ventricle) LV 123/3/14 Recorded Pressure: LV, Ao, HR=58, Condition=Condition 1 10:32:48 (Left Ventricle) LV 129/0/14, (Aorta) Ao 123/58/83 10:33:27 The RCA was injected and visualized at various angles. OMNIPAQUE, 350 MG, 150ML 150ML used . Recorded Pressure: Ao, HR=61, Condition=Condition 1 10:33:45 (Aorta) Ao 121/61/86 After removing the current catheter a JL 3.5 DXTERITY CATHETER FR 5 was advanced over a WIRE, E XCHANGE 260CM 10:34:48 3MMJ 260CM. 10:36:14 The LCA was injected and visualized at various angles. OMNIPAQUE, 350 MG, 150ML 150ML used . 10:36:20 HR=59 bpm, HSDI=406/77 mmhg, SpO2=97.0 % 10:37:48 Catheter was removed 10:39:11 Case End (Physician broke scrub) Assessment: Final Case, HR=51 BPM, RKZO=358/80 mmhg, Chest Pain=0, Edema=None, Color=Normal, S kin = Warm, Dry Right Pulses: Oniel Ped=2, Femoral=2, Radial=2 10:40:36 Left Pulses: Oniel Ped=2, Femoral=2 Neurological: State=Alert, Ox3, [place] Respiration: Resp=8 B/min, DbH0=504 % 10:40:40 Catheter(s) removed without difficulty Radial Compression Device Used. 10 mLs of air placed in BAND, RADIAL COMPRESSION TR SHORT 24 2 4CM. Affected 10:40:43 hand 96 % O2 saturation. 10:40:46 No case complications noted. 10:40:54 Cine recording checked. 10:40:55 Bedside Report will be given. 10:40:59 A Left Heart Cath was performed. 10:41:29 HR=46 bpm, AHYY=412/33 mmhg, SpO2=89.0 % 10:49:28 [facility] Study - Contrast Media Used In Study Contrast Total Opened (mL) Total Used (mL) Total Wasted (mL) Omnipaque 40 40 0 End Study - Maximum Contrast Load Max Contrast Load (mL) 436.9 End Study - Radiation Exposure Fluoro Time (minutes) 1.5 End Study - Sheaths Sheaths Pulled By Sheath Hold Time (min) Marianlea Chaparro End Study - Patient Disposition Complications Transferred To Interventional Outcome No Telemetry Bed No attempt made
--- NOTE | 2018-03-28 11:13 | MA ---
cc: Darryl Flores DO DATE: 03/28/2018 DATE OF PROCEDURE: 03/28/2018. PROCEDURE: Left heart catheterization, coronary angiogram, moderate sedation 15 minutes. PREPROCEDURE DIAGNOSIS: Chest pain concerning for coronary insufficiency, previous normal stress test with continued chest pain. POSTPROCEDURE DIAGNOSIS: Mild coronary artery disease with stent patent in the right coronary artery. MEDICATIONS: Versed 0.5 mg, fentanyl 25 mcg, heparin 3100 units, nitro 200 mcg. CONTRAST USED: 40 mL FLUOROSCOPY: 1.5 minutes. MODERATE SEDATION: 15 minutes. FRAILTY SCORE: 3. ESTIMATED BLOOD LOSS: 10 mL. PROCEDURAL SUMMARY: Radha Velazquez is a pleasant 62-year-old female who presented to [facility] due to chest pain. I recently saw her in the office and she had undergone stress testing in November but this was negative for ischemia. She continues to have chest pain, which has a somewhat atypical and typical component and we were actually setting her up for an outpatient cardiac catheterization to rule out significant coronary artery disease. Because she presented to the hospital with chest pain, I felt that it was reasonable at that time to undergo the cardiac catheterization to rule out significant coronary artery disease as a cause. Risks, benefits and alternatives were explained to her and she consented as such. She was brought to the lab and prepped in the usual sterile fashion. The right radial artery was accessed using modified Seldinger technique and placement of a 5/6-Bengali Slender sheath. This is easily aspirated and flushed. A JR4 was advanced over a J-wire to the ascending aorta and across the aortic valve for measurement of left ventricular pressure. This was pulled back across the aortic valve showing no significant gradient of aortic stenosis. The JR4 was used for selective angiography of the right coronary artery system. This was exchanged out for a JL3.5, which was used for selective angiography of the left coronary artery system. The JL3.5 was removed over a J-wire. A radial band was placed over the arteriotomy site for hemostasis. The patient left the pathology laboratory director cardiovascularly stable. FINDINGS: LEFT MAIN: Normal vessel with adequate reflux. It bifurcates into an LAD and circumflex. LAD: Normal-sized vessel with mild luminal irregularities throughout the proximal portion. The mid-portion has a 20-30% lesion and distally no significant disease. It supplies 1 major diagonal, which is overall large with no significant disease. LEFT CIRCUMFLEX: Normal-sized vessel with mild tortuosity, but no disease. It supplies 3 small obtuse marginals with no significant disease. RCA: Normal-sized vessel with stent patent in the mid-portion. Distally, it supplies the PDA as well as a posterolateral branch with no significant disease. LVEDP: 14. IMPRESSIONS: 1. Chest pain noncoronary in nature. 2. Mild coronary artery disease with previous stent patent. 3. Anxiety. RECOMMENDATIONS: 1. Ms. Velazquez appears to have at most mild coronary artery disease and she will be recommended continued medical therapy. 2. She can be discharged home later today after her radial band has been removed. I have instructed her not to lift more than 10 pounds for 3 days. 3. She will continue on her aspirin and Effient for her previous coronary stent. 4. I have asked that she consider trying to decrease her anxiety as this is a major component in her chest pain. Thank you for allowing me to see Radha Velazquez. If there are any questions, please do not hesitate to call. Darryl Flores DO VGP/KALIN , 10:54 AM , 11:12 AM
--- NOTE | 2018-03-28 12:37 | P.PNCA ---
Subjective Interval history: Post-cath, doing well Physical Exam Vital signs: Vital Signs 03/27/18 12:53 03/27/18 15:36 03/27/18 16:00 Temperature 97.7 F Pulse Rate 69 Respiratory Rate 16 16 18 Blood Pressure 125/66 Pulse Oximetry 99 03/27/18 19:22 03/27/18 19:47 03/27/18 20:00 Temperature 97.9 F 98.2 F Pulse Rate 61 67 Respiratory Rate 16 18 18 Blood Pressure 138/65 126/60 Pulse Oximetry 99 98 03/27/18 20:12 03/27/18 20:59 03/28/18 00:00 Temperature Pulse Rate 67 Respiratory Rate 16 Blood Pressure Pulse Oximetry 100 03/28/18 04:00 03/28/18 04:54 03/28/18 07:36 Temperature 98.3 F 98 F Pulse Rate 52 L 62 77 Respiratory Rate 18 19 Blood Pressure 123/58 L 147/79 H Pulse Oximetry 99 97 03/28/18 08:00 Temperature Pulse Rate Respiratory Rate Blood Pressure Pulse Oximetry 97 Intake & Output 03/27/18 03/28/18 03/28/18 18:59 06:59 18:59 Intake Total 1000 / 1000 1480 / 1480 Balance 1000 / 1000 1480 / 1480 Intake: IV 1000 / 1000 1000 / 1000 NS Inj 1,000 ML @ 100 mls/hr IV 1000 / 1000 1000 / 1000 .CONT .Q10H BESSY Rx#:[id number] Oral 480 / 480 Other: # Voids 4 5 Date of Last Bowel Movement 03/26/18 Narrative: GENERAL: Well-appearing female in no apparent distress SKIN: Warm and dry. No rashes or ecchymoses. HEAD: Atraumatic. Normocephalic. EYES: Pupils equal and round. No scleral icterus. No injection or drainage. ENT: No nasal bleeding or discharge. Mucous membranes pink and moist. NECK: Trachea midline. No JVD. CARDIOVASCULAR: Regular rate and rhythm. No murmurs, gallops, rubs. RESPIRATORY: No accessory muscle use. Clear to auscultation bilaterally without wheezes or rhonchi. GASTROINTESTINAL: Abdomen soft, non-tender, nondistended. Normal bowel sounds. MUSCULOSKELETAL: Extremities without clubbing, cyanosis, or edema. No obvious deformities. NEUROLOGICAL: Awake and alert. No obvious cranial nerve deficits. Motor grossly within normal limits. Normal speech. PSYCHIATRIC: Appropriate mood and affect; insight and judgment normal. Assessment and Plan - Assessment (1) Chest pain Code(s): R07.9 - Chest pain, unspecified Status: Chronic Onset Date: ~ (2) Depression Code(s): F32.9 - Major depressive disorder, single episode, unspecified Status : Acute (3) Fibromyalgia Code(s): M79.7 - Fibromyalgia Status: Acute (4) Nutrition, metabolism, and development symptoms Code(s): R63.8 - Other symptoms and signs concerning food and fluid intake Status: Acute (5) Hypertension Code(s): I10 - Essential (primary) hypertension Status: Chronic (6) Coronary artery disease Code(s): I25.10 - Atherosclerotic heart disease of [place] coronary artery without angina pectoris Status: Acute (7) Acute kidney injury Code(s): N17.9 - Acute kidney failure, unspecified Status: Resolved Onset Date: ~03/26/18 - Plan 1) Chest pain Mild CAD Con't medical management Possible anxiety vs fibromyalgia? 2) Cardiovascularly stable for discharge today No driving today No lifting more than 10 lbs for 3 days Patient understands (1) Chest pain Qualifiers: Chest pain type: unspecified Qualified Code(s): R07.9 - Chest pain, unspecified (2) Depression Qualifiers: Depression Type: major depressive disorder Major depression recurrence: unspecified whether recurrent Active/Remission status: currently active Psychotic features: without psychotic features (5) Hypertension Qualifiers: Hypertension type: essential hypertension Qualified Code(s): I10 - Essential (primary) hypertension (6) Coronary artery disease Qualifiers: Coronary Disease-Associated Artery/Lesion type: [place] artery [place] vs. transplanted heart: [place] heart Associated angina: with stable angina Qualified Code(s): I25.118 - Atherosclerotic heart disease of [place] coronary artery with other forms of angina pectoris
--- NOTE | 2018-03-28 15:16 | P.DS ---
Date of admission: 03/26/18 23:14 Primary care physician: Ag Cifuentes MD, R3 Attending physician on discharge: Philippe Castorena Anticipated date of discharge: 03/28/18 Brief History from admission: 62 yo F with h/o CAD and NSTEMI s/p stent placement (06/2017). She has had 2 weeks of intermittent chest discomfort and heaviness and has actually been scheduled for a cardiac catheterization with Dr. Flores next week. However, yesterday she had worsening chest pressure/heaviness associated with shortness of breath and significant fatigue. She was then brought into the ED for further evaluation and treatment. She endorses substernal chest heaviness and shortness of breath, she endorses bilateral lower extremity swelling, she endorses 15lb weight gain for 2 months. She denies nausea/vomiting, denies diaphoresis, denies radiation of pain to her jaw or arm. DS: Diagnosis - Discharge Diagnosis (1) Chest pain Status: Chronic (2) Coronary artery disease Status: Acute (3) Hypertension Status: Chronic (4) Depression Status: Acute (5) Fibromyalgia Status: Acute (6) Acute kidney injury Status: Resolved (7) Nutrition, metabolism, and development symptoms Status: Acute DS: Medications - Discharge Medications Prescriptions: acetaminophen 650 mg PO Q6HR PRN #30 tab PRN Reason: PAIN 1-10 aspirin [Aspir-81] 81 mg PO DAILY #30 tab atorvastatin [Lipitor] 10 mg PO DAILY #30 tab gabapentin 600 mg PO TID #90 tab hydrocodone-acetaminophen [[place]] 1 tab PO Q4H PRN #18 tab PRN Reason: Breakthrough Pain isosorbide mononitrate 10 mg PO BID #60 tab losartan 50 mg PO DAILY #30 tab metoprolol tartrate 25 mg PO BID #60 tab mirtazapine [Remeron] 30 mg PO DAILY #30 tab omeprazole 40 mg PO DAILY #30 cap prasugrel 10 mg PO DAILY #30 tab ranitidine HCl 300 mg PO DAILY #30 tab DS: Summary Hospital Course: Patient is a 63-year-old female with history of cardiac stent in June 2017. She presented with acute on chronic chest and back pain concerning for unstable angina and initially given her history. She did receive aspirin in the ED. This is of note her second visit to the ED within 1 week for chest pressure and discomfort. Cardiac enzymes and EKGs were unremarkable. She had pain relief with morphine and [place]. She continued aspirin and Prasugrel while inpatient. She had previously established with Dr. Flores with cardiac catheterization planned as outpatient however given acute symptoms cardiac catheterization was pushed up. She was noted to have markedly elevated pancreatic enzyme of unclear etiology. Did receive CT which was unremarkable and received IV fluids at bolus rate with 250 cc an hour 12 hours. This was decreased to maintenance rate given adequate urine output. She was noted to have acute kidney injury on admission thus cardiac catheterization was delayed until 03/28. STEPHANIE resolved 03/25. Cardiac catheterization unremarkable thus patient was cleared for discharge on 03/28. Chronic disease management as followed while inpatient: * CAD: Continued Effient, aspirin, atorvastatin. Cath as above * Hypertension: BP within normal limits during hospitalization, home meds continued * Depression: Continued home dose antidepressant * GERD: On PPI and H2 [place], continue * Fibromyalgia: Patient does report that her home dose was recently decreased and she felt like this contributed to follow myalgia pain. Dose was increased to 600 mg 3 times daily with plans for continued titration as outpatient. * STEPHANIE: Resolved 03/25 Patient re-evaluated after catheterization. She had unremarkable cath procedure per verbal report from Dr. Flores and is cleared for discharge this afternoon. She is alert, oriented, and jovial and evaluation. She reported her chest and back pain was intermittent and right wrist cath site was clean and dry. She was given 3 day supply of [place] given that her acute back and chest pain persisted, suspect etiology is musculoskeletal versus GI. She was counseled to use acetaminophen for primary control and to use [place] only when patient is not controlled with acetaminophen. She was counseled on max daily dose of acetaminophen of 3g. Continued home dose PPI and H2 [place]. Patient to set up appointment with Dr. Prieto or other provider in [facility] for early next week to follow up this hospitalization. - Time Spent with Patient Total time spent providing and/or coordinating discharge services: - Quality: VTE Deep Vein Thrombosis/Pulmonary Embolism Present on Admission: No Exam Vital signs: Vital Signs 03/27/18 15:36 03/27/18 16:00 03/27/18 19:22 Temperature 97.7 F Pulse Rate 69 Respiratory Rate 16 18 16 Blood Pressure 125/66 Pulse Oximetry 99 03/27/18 19:47 03/27/18 20:00 03/27/18 20:12 Temperature 97.9 F 98.2 F Pulse Rate 61 67 Respiratory Rate 18 18 16 Blood Pressure 138/65 126/60 Pulse Oximetry 99 98 03/27/18 20:59 03/28/18 00:00 03/28/18 04:00 Temperature 98.3 F Pulse Rate 67 52 L Respiratory Rate 18 Blood Pressure 123/58 L Pulse Oximetry 100 99 03/28/18 04:54 03/28/18 07:36 03/28/18 08:00 Temperature 98 F Pulse Rate 62 77 Respiratory Rate 19 Blood Pressure 147/79 H Pulse Oximetry 97 97 Intake & Output 03/27/18 03/28/18 03/28/18 18:59 06:59 18:59 Intake Total 1000 / 1000 1480 / 1480 Balance 1000 / 1000 1480 / 1480 Intake: IV 1000 / 1000 1000 / 1000 NS Inj 1,000 ML @ 100 mls/hr IV 1000 / 1000 1000 / 1000 .CONT .Q10H BESSY Rx#:[id number] Oral 480 / 480 Other: # Voids 4 5 Date of Last Bowel Movement 03/26/18 Narrative: Narrative: GENERAL: Well-appearing female in no apparent distress SKIN: Warm and dry. No rashes or ecchymoses. HEAD: Atraumatic. Normocephalic. EYES: Pupils equal and round. No scleral icterus. No injection or drainage. ENT: No nasal bleeding or discharge. Mucous membranes pink and moist. NECK: Trachea midline. No JVD. CARDIOVASCULAR: Regular rate and rhythm. No murmurs, gallops, rubs. RESPIRATORY: No accessory muscle use. Clear to auscultation bilaterally without wheezes or rhonchi. GASTROINTESTINAL: Abdomen soft, non-tender, nondistended. Normal bowel sounds. MUSCULOSKELETAL: Extremities without clubbing, cyanosis, or edema. No obvious deformities. NEUROLOGICAL: Awake and alert. No obvious cranial nerve deficits. Motor grossly within normal limits. Normal speech. PSYCHIATRIC: Appropriate mood and affect; insight and judgment normal. Results Procedures completed during hospitalization: Cardiac catheterization 6Dr. Mark Labs on day of discharge: Labs from last 24 hours 03/27/18 14:03 Total Creatine Kinase 59 Troponin I Less than 0.02 L - Impressions ITS Impressions Chest X-Ray 03/26/18 19:14 CONCLUSION: Minimal basilar atelectasis. No effusion or pneumothorax. Discharge Plan - Discharge Disposition Patient Disposition: 01 Discharge Home - Discharge Condition Condition: Stable - Discharge Order Discharge Orders: Discharge Order (Routine); Ordered 03/28/18 Ordered By: Tawny Dumont - Discharge Details Anticipated Discharge Date: 03/28/18 - Physicians Team Primary Care Provider: Ag Cifuentes Attending Provider: Philippe Castorena Other Providers: Jose Conner MD
== END 2018-03-28 15:50 | disposition home or self-care (01) ==
LOC: NEPHCDU 18:44 → NEPE 18:44 → NEDA 18:44 → NEPHCDU 03-27 05:08
PROVIDERS: ADMIT Family Medicine; ATTEND Family Medicine